=== PATIENT | female | born 1970 | race Caucasian/White ===

== ENCOUNTER 2024-08-03 14:38 | Emergency (ER) | payer BC, MEDICAID, SELFPAY ==
[2024-08-03 14:39] VITALS: BP 198/106; PULSE 67; RESP 17; TEMP 36.7; O2SAT 98; BMI 72.1
--- NOTE | 2024-08-03 14:46 | CTR_ITS ---
PROCEDURE INFORMATION: Exam: CT Abdomen And Pelvis With Contrast Exam date and time: 08/03/2024 3:36 PM Age: 53 years old Clinical indication: Abdominal pain; Additional info: Severe abdominal pain; Known hernia TECHNIQUE: Imaging protocol: Computed tomography of the abdomen and pelvis with contrast. Radiation optimization: All CT scans at this facility use at least one of these dose optimization techniques: automated exposure control; mA and/or kV adjustment per patient size (includes targeted exams where dose is matched to clinical indication); or iterative reconstruction. Contrast material: OMNI 350; Contrast volume: 100 ml; Contrast route: INTRAVENOUS (IV); COMPARISON: CR XR chest 1V portable [id number] 08/03/2024 3:26 PM RADIATION DOSE METRICS: Total DLP (mGy-cm): 1269.8 FINDINGS: Lungs: Lung bases are clear. No pleural effusion. Liver: Normal. No mass. Gallbladder and biliary ducts: The gallbladder has been resected. Pancreas: Normal. No ductal dilation. Spleen: Normal. No splenomegaly. Adrenal glands: Normal. No mass. Kidneys and ureters: Normal. No hydronephrosis. Stomach and bowel: See Soft tissues finding. Appendix: No evidence of appendicitis. Intraperitoneal space: Unremarkable. No free air. No significant fluid collection. Vasculature: Unremarkable. No abdominal aortic aneurysm. Lymph nodes: Unremarkable. No enlarged lymph nodes. Urinary bladder: Unremarkable as visualized. Reproductive: Unremarkable as visualized. Bones/joints: Unremarkable. No acute fracture. Soft tissues: There is a large hernia involving the left anterior abdominal wall. The hernia sac contains mesenteric fat and small bowel. There is mild small bowel dilatation adjacent to the hernia sac. No other bowel distension noted. CT/CT abdomen pelvis w con* [id number] IMPRESSION: Large anterior abdominal wall hernia containing small bowel. I believe this causes a mild partial small bowel obstruction
--- NOTE | 2024-08-03 14:46 | XRR_ITS ---
PROCEDURE INFORMATION: Exam: XR Chest Exam date and time: 08/03/2024 3:26 PM Age: 53 years old Clinical indication: Pain; Other: Abdominal TECHNIQUE: Imaging protocol: Radiologic exam of the chest. Views: 1 view. COMPARISON: No relevant prior studies available. FINDINGS: Lungs: Unremarkable. No consolidation or mass. Pleural spaces: Unremarkable. No pleural effusion. No pneumothorax. Heart/Mediastinum: Mild cardiomegaly is noted. Bones/joints: Unremarkable. XR/XR chest 1V portable [id number] IMPRESSION: No acute findings.
--- NOTE | 2024-08-03 14:53 | ED_ITS ---
HPI - Abdominal Pain 2 General: Chief Complaint: Abdominal Pain Stated Complaint: abd pain Time Seen by Provider: 08/03/24 14:41 Source: patient and EMS Mode of arrival: EMS Limitations: no limitations History of Present Illness: Patient 53-year-old female presents to ED today via EMS for complaints of severe abdominal pain. She was reportedly seated on a toilet earlier this morning straining when she immediately felt a pop and had abdominal pain that seemed to spread all over. Patient states she has a known abdominal hernia and states most of her pain is around this area. She arrives to the ED visibly uncomfortable with severe abdominal pain. Patient is super morbidly obese with a BMI of 72. She has not had any vomiting or diarrhea. No fevers. Arrives with stable vitals apart from she is hypertensive-states she never checks her blood pressure at home. MD elicited complaint: abdominal pain Onset (ago): hour(s) Pain Consistency: constant Severity: severe Quality: sharp Migration to: no migration Relieving factors: nothing Associated Symptoms: Denies chills, diarrhea, dysuria, fever(s), heartburn, nausea, syncope and vomiting Related Data Home Medications Medication Instructions Recorded Confirmed dulaglutide 0.75 mg/0.5 mL 0.75 mg SUBCUT Q7D 08/03/24 08/03/24 subcutaneous pen injector (Trulicity) hydrochlorothiazide 50 mg tablet 50 mg PO DAILY 08/03/24 08/03/24 levothyroxine 100 mcg tablet 100 mcg PO DAILY 08/03/24 08/03/24 metformin 500 mg tablet,extended 500 mg PO BID 08/03/24 08/03/24 release 24 hr sertraline 50 mg tablet 50 mg PO DAILY 08/03/24 08/03/24 Previous Rx's Medication Instructions Recorded lisinopril 20 mg tablet 20 mg PO DAILY #30 tabs 08/03/24 pantoprazole 40 mg tablet,delayed 40 mg PO DAILY 4 weeks #28 tabs 08/03/24 release (Protonix) Allergies Allergy/AdvReac Type Severity Reaction Status Date / Time No Known Allergies Allergy Verified 08/03/24 14:52 Review of Systems 2 Const: Denies: fever(s), chills, body aches, fatigue or malaise Eyes: Denies: change in vision or blurry vision Card: Denies: chest pain, palpitations, irregular heart rhythm, lightheadedness, syncope or dyspnea on exertion Resp: Denies: dyspnea, productive cough or pain on inspiration GI: Reports: abdominal pain; Denies: nausea, vomiting, heartburn or diarrhea : Denies: flank pain, difficulty voiding, dysuria, urinary frequency, urinary urgency or urinary hesitancy Musc: Denies: neck pain, back pain, extremity pain, extremity swelling or joint pain Skin/Breast: Denies: rash Neuro: Denies: headache(s), numbness in extremities, weakness in extremities, sensory changes or dizziness Physical Exam 2 Const: COMMON NORMALS: patient oriented x3 and alert GENERAL APPEARANCE: c ooperative and in distress (appears uncomfortable secondary to pain) N UTRITIONAL APPEARANCE: obese morbidly obese (super morbidly obese with BMI of 72.1) ORIENTATION/CONSCIOUSNESS: Yes awake, Yes oriented to person, Yes oriented to place and Yes oriented to time Eye: COMMON NORMALS: no scleral icterus Chest: COMMONS NORMALS: normal inspection of the chest and normal palpation of entire chest wall Resp: COMMON NORMALS: normal respiratory effort and clear to auscultation bilaterally AUSCULTATION: clear to auscultation bilaterally Cardio: COMMON NORMALS: regular rate and regular rhythm RATE: regular rate RHYTHM: regular rhythm GI: AUSCULTATION: Yes normoactive bowel sounds PALPATION: Yes Tenderness to palpation present (GI) (over site of known hernia) OTHER: organomegaly cannot be evaluated as there are significant limitations in her exam given her morbid obesity : COMMON NORMALS: Yes no CVA tenderness BLADDER/KIDNEY EXAM: Yes no CVA tenderness Back/Pelvis: COMMON NORMALS: no CVA tenderness and thoracic and lumbar spine normal to inspection Extremity: COMMON NORMALS: capillary refill normal GENERAL: Yes normal exam except as noted Neuro: COMMON NORMALS: patient oriented x3, moves all extremities, no focal motor deficits and no sensory deficits noted SENSORIUM/ORIENTATION: Yes alert, Yes oriented to person, Yes oriented to place and Yes oriented to time Skin: COMMON NORMALS: no rashes or lesions noted GENERAL SKIN EXAM: no rashes or lesions noted Course 2 Consultations: Consultation #1: Dr. Harrison-will consult on patient in ED; he is recommending protonix as patient told him she has been having epigastric pain and smokes/NSAID use-possible concern for gastritis; he wants to follow up in office for EGD; feels hernia is chronic and states she does not have an obstruction so can be discharged Vital Signs: Vital signs: Vital Signs Temperature 98.0 F 08/03/24 14:39 Pulse Rate 95 08/03/24 15:48 Respiratory Rate 26 H 08/03/24 15:48 Blood Pressure 186/90 08/03/24 15:48 Pulse Oximetry 94 08/03/24 15:48 Oxygen Delivery Me thod Room Air 08/03/24 15:48 MDM - Abdominal Pain Medical Decision Making Patient here for acute onset abdominal pain while straining to have a bowel movement. She does have a known large abdominal hernia and most of her pain was around the site. She arrives hypertensive. Patient states she never checks her blood pressure at home. She is super morbidly obese. Blood work overall is nonactionable. UA is contaminated. CT scan showing a large anterior abdominal wall hernia containing small bowel. Radiologist commented on mild partial small bowel obstruction. General surgeon has consulted on patient here in the emergency department and does not feel she has SBO. He feels hernia is chronic. He does want her placed on Protonix and follow-up in office for possible EGD. Patient feels comfortable with this plan. Return ED precautions given. Medical Records I reviewed the patient's medical records. Lab Data I reviewed the patient's lab results. 08/03/24 15:12 08/03/24 15:12 Labs/Radiology: Radiology Impressions Abdomen/Pelvis CT 08/03/24 14:46 IMPRESSION: Large anterior abdominal wall hernia containing small bowel. I believe this causes a mild partial small bowel obstruction Chest X-Ray 08/03/24 14:46 IMPRESSION: No acute findings. Laboratory Results WBC 13.34 10^3/uL (3.29-11.43) H 08/03/24 15:12 RBC 5.32 10^6/uL (3.85-5.65) 08/03/24 15:12 Hgb 14.00 g/dL (11.27-16.99) 08/03/24 15:12 Hct 44.9 % (36-47) 08/03/24 15:12 MCV 84.4 fl (85-98) L 08/03/24 15:12 MCH 26.3 pg (27-33) L 08/03/24 15:12 MCHC 31.2 g/dL (30-55) 08/03/24 15:12 RDW 15.9 % (12.1-15.1) H 08/03/24 15:12 Plt Count 324 10^3/cmm (157-399) 08/03/24 15:12 MPV 9.3 fL (7.4-10.4) 08/03/24 15:12 Neut % (Auto) 76.0 % 08/03/24 15:12 Lymph % (Auto) 14.9 % 08/03/24 15:12 Alexander % (Auto) 5.9 % 08/03/24 15:12 Eos % (Auto) 1.5 % 08/03/24 15:12 Baso % (Auto) 0.4 % 08/03/24 15:12 Neut # (Auto) 10.14 10^3/uL (1.8-7.7) H 08/03/24 15:12 Lymph # (Auto) 2.0 10^3/uL (0.8-4.8) 08/03/24 15:12 Alexander # (Auto) 0.8 10^3/uL (0.2-0.9) 08/03/24 15:12 Eos # (Auto) 0.2 10^3/uL (0.0-0.8) 08/03/24 15:12 Baso # (Auto) 0.1 10^3/uL (0.0-0.1) 08/03/24 15:12 Nucleated RBC % (auto) 0 % 08/03/24 15:12 Nucleated RBCs # 0.0 /100WBC 08/03/24 15:12 Sodium 137 mmol/L (136-145) 08/03/24 15:12 Potassium 4.1 mmol/L (3.5-5.1) 08/03/24 15:12 Chloride 95 mmol/L (98-107) L 08/03/24 15:12 Carbon Dioxide 29 mmol/L (22-29) 08/03/24 15:12 Anion Gap 17.1 (5-19) 08/03/24 15:12 BUN 11 mg/dL (6-20) 08/03/24 15:12 Creatinine 0.6 mg/dL (0.5-0.9) 08/03/24 15:12 GFR Calculation 105.0 mL/min (90-130) 08/03/24 15:12 Glucose 135 mg/dL (65-115) H 08/03/24 15:12 Calculated Osmolality 285 mOsm/kg (285-295) 08/03/24 15:12 Calcium 9.5 mg/dL (8.5-10.5) 08/03/24 15:12 Total Bilirubin 0.4 mg/dL (0.15-1.2) 08/03/24 15:12 AST 15 U/L (0-32) 08/03/24 15:12 ALT 19 U/L (0-33) 08/03/24 15:12 Alkaline Phosphatase 106 U/L (35-105) H 08/03/24 15:12 Total Protein 7.1 g/dL (6.6-8.7) 08/03/24 15:12 Albumin 3.9 g/dL (3.5-5.2) 08/03/24 15:12 Globulin 3.2 g/dL (1.3-4.6) 08/03/24 15:12 Lipase 22 U/L (13-60) 08/03/24 15:12 Urine Color Dark yellow (Yellow) A 08/03/24 15:00 Urine Appearance Cloudy (CLEAR) A 08/03/24 15:00 Urine pH 6.0 (5-7) 08/03/24 15:00 Ur Specific Hughes 1.024 (1.005-1.030) 08/03/24 15:00 Urine Protein 2+ (Negative) A 08/03/24 15:00 Urine Glucose (UA) Negative (Normal) 08/03/24 15:00 Urine Ketones Negative (Negative) 08/03/24 15:00 Urine Blood Negative (Negative) 08/03/24 15:00 Urine Nitrate Positive (Negative) A 08/03/24 15:00 Urine Bilirubin Negative (Negative) 08/03/24 15:00 Urine Urobilinogen 1.0 mg/dL (Negative) 08/03/24 15:00 Ur Leukocyte Esterase Negative (Negative) 08/03/24 15:00 Urine RBC 6-10 /hpf (0-2) 08/03/24 15:00 Urine WBC 11-20 /hpf (0-5) H 08/03/24 15:00 Ur Squamous Epith Cells 11-20 /hpf (0-5) 08/03/24 15:00 Amorphous Sediment Not Reportable 08/03/24 15:00 Urine Bacteria 4+ /hpf (NONE) H 08/03/24 15:00 Hyaline Casts 4.11 /lpf 08/03/24 15:00 All radiology interpretation(s) finalized by discharge Discharge Plan Discharge Patient Disposition: Home Clinical Impression: Abdominal wall hernia Hypertension Qualifiers: Hypertension type: unspecified Qualified Code(s): I10 - Essential (primary) hypertension Condition: Stable Prescriptions: New pantoprazole [Protonix] 40 mg tablet,delayed release (DR/EC) 40 mg PO DAILY 28 Days Qty: 28 0RF lisinopril 20 mg tablet 20 mg PO DAILY Qty: 30 0RF No Action hydrochlorothiazide 50 mg tablet 50 mg PO DAILY levothyroxine 100 mcg tablet 100 mcg PO DAILY metformin 500 mg tablet extended release 24 hr 500 mg PO BID sertraline 50 mg tablet 50 mg PO DAILY Trulicity 0.75 mg/0.5 mL Pen Injector 0.75 mg SUBCUT Q7D Discharge Orders: Discharge ED (Routine); Ordered 08/03/24 Ordered By: Meka Acevedo Referrals: Darshan Friedman FNP [Family Provider] - Heather Yip FNP [Primary Care Provider] - Activity Restrictions/Additional Instructions: As we discussed, Dr. Pemberton with general surgery is consulted on you here in the emergency department. He would like to follow-up with you in office for further evaluation and possible endoscopy. We will place you on Protonix at his recommendation. I am also placing you on lisinopril due to your elevated blood pressures here. Please keep a blood pressure log and follow-up with primary care in 2 weeks so they can adjust medication based on this log. You need to return to the emergency department for worsening abdominal pain, fevers, repetitive episodes of vomiting, inability to have a bowel movement or pass gas, or any other concerns you may have. Coding Level of Care Code ED Chiller Tender for Osei Geiger
[2024-08-03 15:08] VITALS: RESP 18; O2SAT 94
[2024-08-03] MEDS: ondansetron 2 mg/ML SDV 2 mL 4 MG IVP (15:08)
[2024-08-03] MEDS: morphine 4 mg/mL SDV 1 mL IVP ×2 (15:08→17:16)
[2024-08-03 15:11] VITALS: BP 212/106; PULSE 71; RESP 22; O2SAT 96
--- NOTE | 2024-08-03 15:19 | PC.PHAR ---
Zev states she is taking medications listed . She was prescribed Trulicity but she states she never picked it up . She states she is borderline Diabetic but didn't want to start taking medications if she didn't quit need it . All other medication listed was verified with Pharmacy that last fill dates were 05/05/24 all for 30days and she hasn't refilled .
[2024-08-03 15:21] LABS: Basophils # 0.1 10^3/uL (0.0-0.1); Basophils % 0.4 %; Eosinophils # 0.2 10^3/uL (0.0-0.8); Eosinophils % 1.5 %; Hematocrit 44.9 % (36-47); Lymphocytes % 14.9 %; Mean Corpuscular HGB Conc 31.2 g/dL (30-55); Mean Corpuscular Hemoglobin 26.3 pg (27-33); Mean Corpuscular Volume 84.4 fl (85-98); Mean Platelet Volume 9.3 fL (7.4-10.4); Monocytes # 0.8 10^3/uL (0.2-0.9); Monocytes % 5.9 %; Neutrophils # 10.14 10^3/uL (1.8-7.7); Nucleated Red Blood Cells % 0 %; Platelet Count 324 10^3/cmm (157-399); Red Blood Count 5.32 10^6/uL (3.85-5.65); Red Cell Distribution Width 15.9 % (12.1-15.1); White Blood Count 13.34 10^3/uL (3.29-11.43)
[2024-08-03 15:23] LABS: Bilirubin Urine Negative (Negative); Blood Urine Negative (Negative); Glucose Urine UA Negative (Normal); Ketones Urine Negative (Negative); Leukocyte Esterase Urine Negative (Negative); Nitrate Urine Positive (Negative); Protein Urine 2+ (Negative); Specific Gravity, Urine 1.024 (1.005-1.030); Urine Appearance Cloudy (CLEAR); Urine Color Dark Yellow (Yellow)
[2024-08-03 15:25] LABS: Add Urine Microscopic? YES; Bacteria Urine 4+ /hpf; Hyaline Casts Urine 4.11 /lpf
[2024-08-03] MEDS: hyDRALAzine 20 mg/mL INJ 1 mL IVP (15:32)
[2024-08-03] MEDS: iohexol 350 mg/mL 500 mL Btl (per mL) IV (15:37)
[2024-08-03 15:40] LABS: Alanine Aminotransferase 19 U/L (0-33); Albumin Level 3.9 g/dL (3.5-5.2); Alkaline Phosphatase 106 U/L (35-105); Anion Gap 17.1 (5-19); Aspartate Amino Transferase 15 U/L (0-32); Blood Urea Nitrogen 11 mg/dL (6-20); Calcium 9.5 mg/dL (8.5-10.5); Carbon Dioxide 29 mmol/L (22-29); Chloride 95 mmol/L (98-107); Creatinine Clr Calc Pharmacy 188.7723; Globulin 3.2 g/dL (1.3-4.6); Glucose 135 mg/dL (65-115); Lipase 22 U/L (13-60); Osmolality Calculated 285 mOsm/kg (285-295); Potassium 4.1 mmol/L (3.5-5.1); Sodium 137 mmol/L (136-145); Total Bilirubin 0.4 mg/dL (0.15-1.2); Total Protein 7.1 g/dL (6.6-8.7)
[2024-08-03 15:48] VITALS: BP 186/90; PULSE 95; RESP 26; O2SAT 94
[2024-08-03] MEDS: metoprolol tartrate 1 mg/1 mL SDV 5 mL 5 MG IVP (16:44)
--- NOTE | 2024-08-03 17:01 | P.CONIM_ITS ---
Providers/Reason For Consult 2 Consulting Physician/Specialty*: Dr. Pemberton general surgery Reason for Consult*: Hernia Primary Care Provider: ANA MARIA Spear History of Present Illness History of Present Illness Arely Landeros is a 53 year old female who presents with epigastric pain. Patient is concerned that the pain is being caused by the hernia. Patient reports smoking. She has been taking ibuprofen quite frequently this week. Patient had a bowel movement today has been passing gas. No vomiting. Abdomen is soft with some tenderness at the hernia site which is periumbilical. Pain is mostly epigastric. CT scan reported as small bowel possibly causing a small bowel obstruction however on my review of the images the small bowel is completely decompressed as well as the stomach. It appears to be a loop of small bowel is chronically incarcerated. There is no fluid in the hernia sac. Her abdominal exam is quite benign. Medications/Allergies Home Medications Medication Instructions Recorded Confirmed Last Taken Type dulaglutide 0.75 mg/0.5 mL 0.75 mg SUBCUT Q7D 08/03/24 08/03/24 Unknown History subcutaneous pen injector (Trulicity) hydrochlorothiazide 50 mg tablet 50 mg PO DAILY 08/03/24 08/03/24 Unknown History levothyroxine 100 mcg tablet 100 mcg PO DAILY 08/03/24 08/03/24 Unknown History lisinopril 20 mg tablet 20 mg PO DAILY #30 tabs 08/03/24 Unknown Rx metformin 500 mg tablet,extended 500 mg PO BID 08/03/24 08/03/24 Unknown History release 24 hr pantoprazole 40 mg tablet,delayed 40 mg PO DAILY 4 weeks #28 tabs 08/03/24 Unknown Rx release (Protonix) sertraline 50 mg tablet 50 mg PO DAILY 08/03/24 08/03/24 Unknown History Allergies Allergy/AdvReac Type Severity Reaction Status Date / Time No Known Allergies Allergy Verified 08/03/24 14:52 Vitals/I&O/Wt Last Vital Signs Temp 98.0 F 08/03/24 14:39 Pulse 95 08/03/24 15:48 Resp 26 H 08/03/24 15:48 BP 186/90 08/03/24 15:48 Pulse Ox 94 08/03/24 15:48 O2 Del Method Room Air 08/03/24 15:48 Weight last 48 hrs Weight 420 lb Physical Exam 2 Narrative: Chest: Unlabored breathing room air. No lymphadenopathy. Heart: Regular rate and rhythm. Abdomen: Soft, mildly tender at the epigastrium, nondistended. No masses or lymphadenopathy. Data 08/03/24 15:12 08/03/24 15:12 A&P Assessment and plan (1) Abdominal wall hernia: (2) PUD (peptic ulcer disease): Plan 53-year-old female who presents with epigastric pain and pain around the periumbilical hernia. Her pain is most consistent with peptic ulcer disease. Instructed to stop ibuprofen, reduce smoking, and start Protonix. Hernia causes her some discomfort but I do not believe this is causing her to be obstructed. Furthermore I cautioned her that fixing her hernia has a high recurrence risk given her BMI and overall deconditioning. She can follow-up with me for EGD. Coding Level of Care Code 27135 Diagnoses Abdominal wall hernia K43.9 PUD (peptic ulcer disease) K27.9 Time Spent (min) 30
[2024-08-03 17:16] VITALS: RESP 20; O2SAT 96
[2024-08-03 17:22] VITALS: BP 182/97; PULSE 83; O2SAT 96
--- NOTE | 2024-08-06 07:09 | DCPLANNER ---
messaged gen surgery for er f/u
== END 2024-08-03 17:23 | disposition home or self-care (01) ==
PROVIDERS: Emergency Provider Physician Assistant; Family Provider Nurse Practitioner Family; PCP Registered Nurse
DX: K43.9 Ventral hernia without obstruction or gangrene (principal)
CPT/HCPCS: 71045; 74177; 80053; 81001; 83690; 85025; 96374; 96375; 96376; 99285; J0360; J2270; J2405; J3490

== ENCOUNTER 2025-01-12 10:07 | Outpatient (CLI) | payer BC, MEDICAID, SELFPAY ==
--- NOTE | 2025-01-12 10:09 | USCV_ITS ---
Arely Landeros Age: 54 Gender: F : 1970 Exam Date: 01/12/2025 10:03 Ordering Phys: Sharona Pierson-Yanira Technologist: Carlyle Brandt [place] [facility] [place]: Lymphedma RIGHT LEFT Brachial 215.00 mmHg Brachial 196.00 mmHg Pressure (mmHg) Waveform Pressure (mmHg) Waveform 158.00 Pre-Exercise Toe Pressure 177.00 0.73 Pre-Exercise Toe/Brachial Index 0.82 FINDINGS KATRINA noncalculable due to noncompressibility TBI on the right side of 0.73 and that on the left was 0.82 CONCLUSIONS 1. Super normal ABIs bilaterally suggesting arterial sclerosis 2. Slightly diminished resting KATRINA on the right side suggesting mild peripheral artery disease 3. No significant arterial obstruction on the left side. Dr Marilynn Harvey MD [facility] (Electronically Signed) Final Date: 16 January 2025 19:21 S
== END 2025-01-12 10:08 | disposition home or self-care (01) ==
PROVIDERS: Family Provider Nurse Practitioner Family; PCP Registered Nurse; Visit Provider Nurse Practitioner Family
DX: I89.0 Lymphedema, not elsewhere classified (principal)
CPT/HCPCS: 93922

== ENCOUNTER 2025-05-08 08:38 | Inpatient (IN) | payer BC, SELFPAY ==
[2025-05-08] VITALS (49 sets, daily range): BP systolic 127–228; BP diastolic 61–155; PULSE 60–89; RESP 14–24; TEMP 36.4–36.7; O2SAT 91–100; BMI 67.6; BMI 69.6
--- OUTSIDE RECORDS SUMMARY | 2025-05-08 08:42 | XMS_ITS | Encounter Summary ---
Author Organization [facility] Address [address] [place] [address] Care Team Providers Care Cage Supervisor Name Role Phone OsirisMckay desai Primary Care Provider [phone] Encounter Details Date Type Department Care Team (Late st Contact Info) Description 03/11/2025 Results Follow-Up [facility] Medicine [place] [address] [phone] Heather Yip, [facility] [address] [phone] TSH Social History Tobacco Use Types Packs/Day Years Used Date Smoking Tobacco: Every Day Cigarettes 1 31.1 Started: 04/09/1994 Smokeless Tobacco: Never Alcohol Use Standard Drinks/Week Comments No 0 (1 standard drink = 0.6 oz pur e alcohol) Feeling Safe Answer Date Recorded Are you in a relationship wi th someone who hurts you emotionally and/or physically? 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 Author Reduction of depression doom and gloom General Yes Mary Jane Tim Note: Arely will explore the feelings wheel and increase her awareness on feelings. Arely will get up for 5 mins upon waking and return to bed. If needed the patient will use guided sleep meditations to return to sleep. Arely will review information about sleep hygiene. Arely will call [facility] to seek in person therapy for trauma. documented as of this encounter Visit Diagnoses Not on filedocumented in this encounter Additional Health Concerns Assessment Noted Time PHQ-9 Depression Total Score: 3 12/08/19 25 10:00 AM CDT documented as of this encounter Care Teams Cage Supervisor Relationship Specialty Start Date End Date Mckay Crawford DO [address] [place] [phone] PCP - General Family Practice 12/17/22 documented as of this encounter
--- OUTSIDE RECORDS SUMMARY | 2025-05-08 08:42 | XMS_ITS | Clinical Summary ---
Author Organization [facility] Address [address] [place] [address] Phone Care Team Providers Care Personal Care Worker Name Role Phone Tracy Perez Primary Care Provider Allergies No known active allergies Medications cetirizine (ZyrTEC) 10 mg tablet Take 10 mg by mouth daily. Active norethindrone-et hin estradiol (NECON , 28,) 1-35 mg-mcg tabletIndication s:Menorrhagia with irregular cycle Take 1 tab TID for 3 days, then 1 tab BID for 3 days then 1 tab daily 28 Tablet 12 9 Active levothyroxine 75 mcg tabletIndication s:Hypothyroidism , unspecified type Take 1 Tablet (75 mcg) by mouth daily in the morning. 90 Tablet 1 Active hydroCHLOROthiaz sandra 25 mg tabletIndication s:Benign hypertension,Gen eralized edema TAKE ONE TO ONE AND ONE-HALF TABLET BY MOUTH ONCE DAILY FOR LOWER LEG SWELLING AND ELEVATED BLOOD PRESSURE 45 Tablet 3 1 Active PARoxetine HCl (PAXIL) 40 mg tabletIndication s:Situational mixed anxiety and depressive disorder Take 1 Tablet (40 mg) by mouth daily. 30 Tablet 11 1 Active triamcinolone acetonide (KENALOG) 0.5 % CreamIndications :Plaque psoriasis Apply to affected area 2 times daily. 30 Gram 2 1 Active Active Problems Problem Noted Date Diagnosed Date Situational mixed anxiety and depressive disorde r 06/09/2019 Menorrhagia with irregular cycle 06/09/2019 Situational depression 11/28/2017 Hypothyroidism 01/08/2017 Benign hypertension 01/08/2017 Morbid obesity with BMI of 50.0-59.9, adult 12/27 Tobacco use 08/14/2016 Immunizations Immunization Administration Dates Next Due (ADACEL/BOOSTRIX)(10 YR UP) TDAP VACCINE, 0.5ML, IM 08/14/2016 Social History Tobacco Use Types Packs/Day Years Used Date Smoking Tobacco: Every Day Cigarettes Tobacco Cessation:Ready to Q uit: No; Counseling Given: Yes Alcohol Use Standard Drinks/Week Comments No 0 (1 standard drink = 0.6 oz pur e alcohol) Comments No Sex and Gender Information Value Date Recorded Sex Assigned at Not on file Legal Sex Female 6:13 PM CDT Gender Identity Not on file Sexual Orientation Not on file Last Filed Vital Signs Vital Sign Reading Time Taken Comments Blood Pressure 130/90 01/02/2021 4:06 PM CDT Pulse 110 01/02/2021 4:06 PM CDT Temperature 36.6 C (97.9 F) 01/02/2021 4:06 PM CDT Respiratory Rate 18 06/09/2019 9:54 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 Oxygen Saturation 97% 01/02/2021 4:06 PM CDT Inhaled Oxygen Concentration - - Weight 167.7 kg (369 lb 12.8 oz) 01/02/2021 4:06 PM CDT Height 162.6 cm (5' 4 ) 01/02/2021 4:06 PM CDT Body Mass Index 63.48 01/02/2021 4:06 PM CDT Plan of Treatment Health Maintenance Due Date Last Done Comments DIABETES ANNUAL FOOT EXAM 1989 DIABETES ANNUAL RETINAL EXAM 1989 DIABETES HBA1C Q 6 MONTHS 1989 DIABETES MICROALBUMIN ANNUAL SCREEN 1989 LDL CHOLESTEROL ANNUAL 1989 HEPATITIS B VACCINES (1 of 3 - 19+ 3-dose series) 07/29 HPV/Cotest (21-29) 1992 CERVICAL CANCER SCREENING 2001 HPV/Cotest (30-65) 2001 PAP SMEAR 2001 BREAST CANCER SCREENING 2011 COLORECTAL SCREENING 2016 Colorectal Cancer Screening 2016 FIT-DNA Q 3 years 2016 FIT/FOBT Q 1 year 2016 Flex Sig/CT Colonography Q 5 years 2016 ZOSTER VACCINE (1 of 2) 2021 INFLUENZA VACCINE (#1) 2025 DTAP/TDAP/TD VACCINES (2 - Td or Tdap) 08/14/2026 Care Teams Personal Care Worker Relationship Specialty Start Date End Date Tracy Perez DO [address] [place] [address] PCP - General Family Practice 02/22/17
--- OUTSIDE RECORDS SUMMARY | 2025-05-08 08:42 | XMS_ITS | Encounter Summary ---
Author Organization [facility] Address 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 Arely will call [facility] to seek in person therapy for trauma. documented as of this encounter Visit Diagnoses Not on filedocumented in this encounter Additional Health Concerns Assessment Noted Time PHQ-9 Depression Total Score: 3 12/08/19 25 10:00 AM CDT documented as of this encounter Care Teams Incident Coordinator Relationship Specialty Start Date End Date Mckay Crawford DO [address] [place] [phone] PCP - General Family Practice 12/17/22 documented as of this encounter
--- OUTSIDE RECORDS SUMMARY | 2025-05-08 08:42 | XMS_ITS | Clinical Summary ---
Author Organization [facility] Address [address] [facility] Attn: Epic Prelude ADT ZACHARY CAPPS [phone] Care Team Providers Care Barback Name Role Phone Mckay Crawford Primary Care Provider Allergies Active Allergy Reactions Criticality Noted Date Comments Adhesive Rash Low 12/07/2024 Medications cetirizine (ZyrTEC) 10 mg tablet Take 10 mg by mouth daily. 8 Active nystatin (NYSTOP) 100,000 unit/gram powderIndicatio ns:Skin yeast infection Apply to affected area 2 times daily. 60 Gram 5 2 Active hydrocortisone (HYTONE) 2.5 % Ointment Apply to affected area 2 times daily. 3 Active clobetasoL (TEMOVATE) 0.05 % Ointment Apply to affected area. 3 Active clobetasoL (TEMOVATE) 0.05 % Solution Apply to affected area daily. 3 Active potassium chloride (KLOR-CON) 10 mEq Extended Release tabletIndicatio ns:Dyspnea, unspecified type,Bilateral leg edema Take 1 tab daily when taking Lasix. 30 Tablet 1 3 Active Additional Information Patient not taking.Reported on 03/09/2025 furosemide (LASIX) 20 mg tabletIndicatio ns:Dyspnea, unspecified type,Bilateral leg edema TAKE 1 TABLET BY MOUTH NEEDED FOR LOWER LEG EDEMA 30 Tablet 1 4 Active Additional Information Patient not taking.Reported on 03/09/2025 hydroCHLOROthia zide 50 mg tabletIndicatio ns:Benign hypertension,Ge neralized edema TAKE ONE TAB DAILY 90 Tablet 1 5 Active sertraline (Zoloft) 100 mg tabletIndicatio ns:Moderate episode of recurrent major depressive disorder (CMS/HCC),Grief at loss of child Take 1 Tablet (100 mg) by mouth daily. 90 Tablet 3 5 Active levothyroxine 125 mcg tabletIndicatio ns:Hypothyroidi sm, unspecified type Take 1 Tablet (125 mcg) by mouth daily in the morning. 30 Tablet 3 5 Active tirzepatide, weight loss, (Zepbound) 7.5 mg/0.5 mL Pen Injector Inject 0.5 mL (7.5 mg) by subcutaneous injection every 7 days. 2 mL 2 5 Active mebendazole (EMVERM) 100 mg Tablet, ChewableIndicat ions:Worms in stool Take 1 Tablet (100 mg) by mouth 2 times daily for 3 days. 6 Tablet 1 5 025 Active Problems Problem Noted Date Diagnosed Date Acute cystitis with hematuria 06/04/2024 Lymphedema of both lower extremities 06/04/2024 Type 2 diabetes mellitus wit hout complication, without long-term current use of insulin 04/11/2024 Morbid obesity with BMI of 70 and over, adult Chronic pain of right knee 04/09/2024 Primary osteoarthritis of both knees 11/18/2023 Generalized anxiety disorder 06/09/2019 Menorrhagia with irregular cycle 06/09/2019 Moderate episode of recurrent major depressive d isorder 11/28/2017 Benign hypertension 01/08/2017 Hypothyroidism 01/08/2017 Morbid obesity with BMI of 50.0-59.9, adult 12/27 Tobacco use 08/14/2016 Encounters Date Type Department Care Team Description 04/10/2025 Orders Only [address] [phone] Heather Yip, ANA MARIA Worms in stool (Primary Dx) 04/06/2025 External Device Data ST[facility] ABSTRACTION Provider, Abstract 04/06/2025 External Device Data ST[facility] ABSTRACTION Provider, Abstract 04/06/2025 External Device Data ST[facility] ABSTRACTION Provider, Abstract 03/30/2025 External Device Data ST[facility] ABSTRACTION Provider, Abstract 03/11/2025 Results Follow-Up [address] [phone] Heather Yip FNP HEMOGLOBIN A1C 03/11/2025 Orders Only [address] [phone] Heather Yip, TECHNICAL DATA ANALYST Hypothyroidism, unspecified type 03/11/2025 Results Follow-Up [address] [phone] Heather Yip FNP TSH 03/10/[address] [phone] Heather Yip FNP Hypothyroidism, unspecified type 03/09/2025 11:00 AM CDT Office Visit [address] [phone] Heather Yip, ANA MARIA Type 2 diabetes mellitus without complication, without long-term current use of insulin ([facility]) (Primary Dx); Morbid obesity with BMI of 70 and over, adult ([facility]); Hypothyroidism, unspecified type 03/03/2025 External Device Data STL ABSTRACTION Provider, Abstract 03/02/2025 External Device Data STL ABSTRACTION Provider, Abstract 02/10/2025 External Device Data STL ABSTRACTION Provider, Abstract 02/10/2025 External Device Data STL ABSTRACTION Provider, Abstract from Last 3 Months Immunizations Immunization Administration Dates Next Due (ADACEL/BOOSTRIX)(10 YR UP) TDAP VACCINE, 0.5ML, IM 08/14/2016 Family History Medical History Relation Name Comments SLE Maternal Grandmother Relation Name Status Comments Maternal Grandmother Social History Tobacco Use Types Packs/Day Years Used Date Smoking Tobacco: Every Day Cigarettes 1 31.1 Started: 04/09/1994 Smokeless Tobacco: Never Tobacco Cessation:Ready to Q uit: No; Counseling [...] on file Legal 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 Gender Identity Not on file Sexual Orientation Not on file Last Filed Vital Signs Vital Sign Reading Time Taken Comments Blood Pressure 128/82 03/09/2025 11:20 AM CDT Pulse 94 03/09/2025 11:20 AM CDT Temperature 36.4 C (97.6 F) 03/09/2025 11:20 AM CDT Respiratory Rate 16 03/09/2025 11:20 AM CDT Oxygen Saturation 97% 03/09/2025 11:20 AM CDT Inhaled Oxygen Concentration - - Weight 178.7 kg (394 lb) 03/09/2025 11:20 AM CDT Height 160 cm (5' 3 ) 03/09/2025 11:20 AM CDT Body Mass Index 69.79 03/09/2025 11:20 AM CDT Plan of Treatment Health Maintenance Due Date Last Done Comments DIABETES ANNUAL FOOT EXAM 1989 DIABETES ANNUAL RETINAL EXAM 1989 DIABETES MICROALBUMIN ANNUAL SCREEN 1989 HEPATITIS B VACCINES (1 of 3 - 19+ 3-dose series) 1990 HPV/Cotest (21-29) 1992 CERVICAL CANCER SCREENING 2001 HPV/Cotest (30-65) 2001 PAP SMEAR 2001 COLORECTAL SCREENING 2016 Colorectal Cancer Screening 2016 FIT-DNA Q 3 years 2016 FIT/FOBT Q 1 year 2016 Flex Sig/CT Colonography Q 5 years 2016 Lung Cancer Screening 2021 ZOSTER VACCINE (1 of 2) 2021 Preventative Visit-Managed Medicaid 12/19/2023 12/17/2022, 02/22/2022 INFLUENZA VACCINE (#1) 2025 BREAST CANCER SCREENING 06/07/2025 Post poned from 2011 (Patient Refused) DIABETES HBA1C Q 6 MONTHS 09/09/20252024, 12/07/2024, 04/09/2024, Additional history exists LDL CHOLESTEROL ANNUAL 12/07/2025 , 12/17/2022, 02/22/2022 DIABETES: A1C (Auto Order) 03/09/202603/09, 12/07/2024, 04/09/2024, Additional history exists DTAP/TDAP/TD VACCINES (2 - Td or Tdap) 08/14/2026 08/14/2016 Goals Goal Patient Goal Type Associated Problems Recent Progress Patient-Stated? Author Reduction of depression doom and gloom General Yes Mary Jane Tim Note: Raymond will explore the feelings wheel and increase her awareness on feelings. Raymond will get up for 5 mins upon waking and return to bed. If needed the patient will use guided sleep meditations to return to sleep. Raymond will review information about sleep hygiene. Raymond will call [facility] to seek in person therapy for trauma. Procedures Procedure Name Priority Date/Time Associated Diagnosis Comments HEMOGLOBIN A1C Routine 03/09/2025 12:28 PM CDT Type 2 diabetes mellitus without complication, without long-term current use of insulin ([facility]) TSH Routine 03/09/2025 12:26 PM CDT Hypothyroidism, unspecified type LIPID PANEL Routine 12/07/2024 11:58 AM CDT Type 2 diabetes mellitus without complication, without long-term current use of insulin ([facility]) from Last 3 Months or Most Recently Relevant to Health Maintenance Results * (ABNORMAL) HEMOGLOBIN A1C (03/09/2025 12:28 PM CDT) HEMOGLOBIN A1C 5.9(H) <5.7 % [facility] Comment: For someone without known diabetes, a hemoglobin A1c value between 5.7% and 6.4% is consistent with prediabetes and should be confirmed with a follow-up test. For someone with known diabetes, a value <7% indicates that their diabetes is well controlled. A1c targets should be individualized based on duration of diabetes, age, comorbid conditions, and other considerations. This assay result is consistent with an increased risk of diabetes. Currently, no consensus exists regarding use of hemoglobin A1c for diagnosis of diabetes for children. ESTIMATED AVERAGE GLUCOSE (MG/DL) 123 mg/dL [facility] ESTIMATED AVERAGE GLUCOSE (MMOL/L) 6.8 mmol/L [facility] Comment: Test Performed at: [facility] [address] [place] [address], [place] [phone] Lisa Torres MD Blood 03/09/2025 12:2 8 PM CDT 03/09/2025 12:29 PM CDT Heather MORFINP CHEMISTRY ORDERABLES Final Re sult Performing Organization Address [facility] Co de Phone Number [facility] [phone] [facility] [address] [place] [phone] * TSH (03/09/2025 12:26 PM CDT) TSH 4.12 mIU/L [facility] Comment: Reference Range > or = 20 Years 0.40-4.50 Ranges First trimester 0.26-2.66 Second trimester 0.55-2.73 Third trimester 0.43-2.91 Test Performed at: [facility] [address] [place] [address], [place] [address] Lisa Torres MD Blood 03/09/2025 12:2 6 PM CDT 03/09/2025 12:27 PM CDT us Heather MORFINP CHEMISTRY ORDERABLES Final Re sult Performing Organization Address [facility] Co de Phone Number [facility] [phone] [employer] [facility] [address] [place] [phone] * (ABNORMAL) LIPID PANEL (12/07/2024 11:58 AM CDT) CHOLESTEROL 214(H) <200 mg/dL [facility] HDL 51 > OR = 50 mg/dL [facility] TRIGLYCERIDE 144 <150 mg/dL [facility] LDL CALCULATED 136(H) mg/dL (calc) [facility] Comment: Reference range: <100 Desirable range <100 mg/dL for primary prevention; <70 mg/dL for patients with CHD or diabetic patients with > or = 2 CHD risk factors. LDL-C is now calculated using the Jessica calculation, which is a validated novel method providing better accuracy than the Friedewald equation in the estimation of LDL-C. Diego SS et al. VANESSA. 2013;310(19): 2856-0506 (http://education.Mobile-XL/faq/RYR036) CHOL/HDL RATIO 4.2 <5.0 (calc) [facility] NON-HDL CHOLESTEROL 163(H) <130 mg/dL (calc) [facility] Comment: For patients with diabetes plus 1 major ASCVD risk factor, treating to a non-HDL-C goal of <100 mg/dL (LDL-C of <70 mg/dL) is considered a therapeutic option. Test Performed at: [facility] [address] [address] Lisa Torres MD Blood 12/07/2024 11:5 8 AM CDT 12/07/2024 11:58 AM CDT us Heather Yip TECHNICAL DATA ANALYST CHEMISTRY ORDERABLES Final Re sult [facility] [phone] [facility] [address] [phone] from Last 3 Months or Most Recently Relevant to Health Maintenance Insurance [address] [place] [address] [facility] MEDICAID Care Teams Barback Relationship Specialty Start Date End Date Mckay Crawford DO [address], [place] [address] PCP - General Family Practice 12/17/22
--- NOTE | 2025-05-08 08:44 | CTR_ITS ---
PROCEDURE INFORMATION: Exam: CT Abdomen And Pelvis Without Contrast Exam date and time: 05/08/2025 9:15 AM Age: 54 years old Clinical indication: Abdominal pain TECHNIQUE: Imaging protocol: Computed tomography of the abdomen and pelvis without contrast. Radiation optimization: All CT scans at this facility use at least one of these dose optimization techniques: automated exposure control; mA and/or kV adjustment per patient size (includes targeted exams where dose is matched to clinical indication); or iterative reconstruction. COMPARISON: CR (CHEST, ) 05/08/2025 8:56 AM RADIATION DOSE METRICS: Total DLP (mGy-cm): 1270.13 FINDINGS: Lungs: Lung bases are clear as visualized. Diaphragm: There may be a small hiatal hernia. Liver: Normal. No mass. Gallbladder and biliary ducts: There are surgical clips within the gallbladder fossa. Pancreas: Normal. No ductal dilation. Spleen: Normal. No splenomegaly. Adrenal glands: Normal. No mass. Kidneys and ureters: Cortical calcification with adjacent scarring noted involving the left kidney. The kidneys are otherwise normal. No hydronephrosis is noted. Stomach and bowel: There are scattered colonic diverticula. No large bowel wall thickening is noted. Very minimal distension of small bowel loops suspected proximal to the hernia defect. Appendix: No evidence of appendicitis. Intraperitoneal space: Unremarkable. No free air. No significant fluid collection. Vasculature: The aorta is normal in caliber. There is calcified plaque involving the aorta and its branch vessels. Lymph nodes: Unremarkable. No enlarged lymph nodes. Urinary bladder: Unremarkable as visualized. Reproductive: Unremarkable as visualized. Bones/joints: Unremarkable. No acute fracture. Soft tissues: There is an anterior abdominal wall hernia defect measuring 4.8 cm in transverse dimension. Small bowel extends through the hernia defect. There is minimal dilatation involving the bowel loops extending through the hernia defect however the bowel wall is slightly thickened and there is edematous change involving the fat within the defect. CT/CT abdomen pelvis wo con [id number] IMPRESSION: 1. Anterior abdominal wall hernia defect with small bowel loops extending through the hernia defect as described above. Findings are suspicious for the possibility of strangulation with partial small bowel obstruction. Recommend clinical correlation.
--- NOTE | 2025-05-08 08:45 | XRR_ITS ---
PROCEDURE INFORMATION: Exam: XR Chest Exam date and time: 05/08/2025 8:56 AM Age: 54 years old Clinical indication: Cough and dyspnea; Additional info: Dyspnea/cough TECHNIQUE: Imaging protocol: Radiologic exam of the chest. Views: 1 view. COMPARISON: CR XR chest 1V portable [id number] 08/03/2024 3:26 PM FINDINGS: Lungs: Unremarkable. No consolidation. Pleural spaces: Unremarkable. No pleural effusion. No pneumothorax. Heart/Mediastinum: Unremarkable. No cardiomegaly. Bones/joints: Unremarkable. XR/XR chest 1V portable [id number] IMPRESSION: No acute findings.
[2025-05-08] MEDS: HYDROmorphone 0.5 MG/0.5 ML INJ IVP ×2 (08:47→10:50)
--- NOTE | 2025-05-08 08:47 | W.ED.ABDPA2 ---
HPI - Abdominal Pain General: Chief Complaint: Abdominal Pain Stated Complaint: ABD PAIN History of Present Illness: 64-year-old female presents emergency room with complaint of abdominal pain abdominal pain began suddenly around the umbilicus this morning she has dry heaves a couple of times complaining of severe pain at the umbilicus. She denies any dysuria urgency or frequency denies any diarrhea no hematemesis or coffee-ground emesis. Patient morbidly obese with a BMI of 67. Patient had similar presentation to the ER in July of this year note reviewed. At that visit there was a concern for small bowel obstruction CT was done, surgical consultation they did not feel she has small bowel obstruction she was discharged home on Protonix Associated Symptoms: Reports nausea and vomiting; Denies chills, coffee ground emesis, diarrhea, dysuria, fever(s), hematochezia, hematemesis and melena Related Data Home Medications ?Medication ?Instructions ?Recorded ?Confirmed levothyroxine 125 mcg tablet 125 mcg PO QAM 05/08/25 05/08/25 sertraline 100 mg tablet 100 mg PO DAILY 05/08/25 05/08/25 tirzepatide (weight loss) 7.5 7.5 mg SUBCUT Q7D 05/08/25 05/08/25 mg/0.5 mL subcutaneous pen injector (Zepbound) Allergies Allergy/AdvReac Type Severity Reaction Status Date / Time No Known Allergies Allergy Verified 08/03/24 14:52 Review of Systems Const: Denies: fever(s) or chills Card: Denies: chest pain Resp: Denies: dyspnea GI: Reports: abdominal pain, nausea and vomiting; Denies: hematemesis, coffee ground emesis, diarrhea, hematochezia or melena : Denies: dysuria, urinary frequency or urinary urgency Musc: Denies: neck pain or back pain Skin/Breast: Denies: rash PFSH ED PFSH: Medical History Morbid obesity Abdominal wall hernia Hypothyroidism Diabetes mellitus PUD (peptic ulcer disease) Social History Smoking and tobacco/nicotine status: current every day tobacco/nicotine user Physical Exam Const: GENERAL APPEARANCE: cooperative ORIENTATION/CONSCIOUSNESS: Yes awake, Yes oriented to person, Yes oriented to place and Yes oriented to time HENMT: COMMON NORMALS: normocephalic, atraumatic and hearing grossly normal bilaterally HEAD & SCALP: normocephalic and atraumatic Resp: COMMON NORMALS: normal respiratory effort, No retractions, No use of accessory muscles and clear to auscultation bilaterally AUSCULTATION: clear to auscultation bilaterally Cardio: COMMON NORMALS: regular rate, regular rhythm and No murmurs present (Cardio) RATE: regular rate RHYTHM: regular rhythm GI: COMMON NORMALS: No hepatosplenomegaly present AUSCULTATION: Yes Hypoactive bowel sounds present PALPATION: Yes Tenderness to palpation present (GI) (Tender palpable mass near the umbilicus.), No Guarding due to palpation present (GI) and Yes No hepatosplenomegaly present Extremity: COMMON NORMALS: normal to inspection, capillary refill normal, no clubbing, cyanosis or edema, no calf tenderness and no pedal edema Neuro: SENSORIUM/ORIENTATION: Yes oriented to person, Yes oriented to place and Yes oriented to time Skin: COMMON NORMALS: no rashes or lesions noted GENERAL SKIN EXAM: no rashes or lesions noted Course Vital Signs: Vital signs: Vital Signs Temperature 97.6 F 05/08/25 11:55 Pulse Rate 83 05/08/25 11:55 Respiratory Rate 16 05/08/25 16:00 Blood Pressure 201/155 05/08/25 11:55 Pulse Oximetry 99 05/08/25 16:00 Oxygen Delivery Me thod Room Air 05/08/25 11:55 Fraction of Inspir ed Oxygen 50 05/08/25 16:00 MDM - Abdominal Pain Medical Decision Making CT shows strangulated hernia with some increased bowel wall thickening within the hernia as well as some fat stranding discussed with the Dr. Pemberton on-call for surgery who will admit. Reviewed findings with the patient. She is agreeable to plan. Orders written for admission to Dr. Pemberton. Medical Records I reviewed the patient's medical records. Lab Data I reviewed the patient's lab results. 05/08/25 08:56 05/08/25 08:56 Labs/Radiology: Radiology Impressions Abdomen/Pelvis CT 05/08/25 08:44 IMPRESSION: 1. Anterior abdominal wall hernia defect with small bowel loops extending through the hernia defect as described above. Findings are suspicious for the possibility of strangulation with partial small bowel obstruction. Recommend clinical correlation. ADDENDUM: 05/08/25 1045 COMMENT: THIS REPORT CONTAINS FINDINGS THAT MAY BE CRITICAL TO PATIENT CARE. The exam findings were verbally communicated by me to MARCO A GONSALEZ via telephone conference at 10:43 AM CDT on 05/08/2025. The findings were acknowledged and understood. Laboratory Results WBC 12.85 10^3/uL (3.29-11.43) H 05/08/25 08:56 RBC 5.75 10^6/uL (3.85-5.65) H 05/08/25 08:56 Hgb 15.90 g/dL (11.27-16.99) 05/08/25 08:56 Hct 49.2 % (36-47) H 05/08/25 08:56 MCV 85.6 fl (85-98) 05/08/25 08:56 MCH 27.7 pg (27-33) 05/08/25 08:56 MCHC 32.3 g/dL (30-55) 05/08/25 08:56 RDW 16.3 % (12.1-15.1) H 05/08/25 08:56 Plt Count 284 10^3/cmm (157-399) 05/08/25 08:56 MPV 9.4 fL (7.4-10.4) 05/08/25 08:56 Neut % (Auto) 59.1 % 05/08/25 08:56 Lymph % (Auto) 29.8 % 05/08/25 08:56 [place] % (Auto) 7.6 % 05/08/25 08:56 Eos % (Auto) 2.3 % 05/08/25 08:56 Baso % (Auto) 0.3 % 05/08/25 08:56 Neut # (Auto) 7.59 10^3/uL (1.8-7.7) 05/08/25 08:56 Lymph # (Auto) 3.8 10^3/uL (0.8-4.8) 05/08/25 08:56 [place] # (Auto) 1.0 10^3/uL (0.2-0.9) H 05/08/25 08:56 Eos # (Auto) 0.3 10^3/uL (0.0-0.8) 05/08/25 08:56 Baso # (Auto) 0.0 10^3/uL (0.0-0.1) 05/08/25 08:56 Nucleated RBC % (auto) 0 % 05/08/25 08:56 Nucleated RBCs # 0.0 /100WBC 05/08/25 08:56 Sodium 137 mmol/L (136-145) 05/08/25 08:56 Potassium 3.8 mmol/L (3.5-5.1) 05/08/25 08:56 Chloride 98 mmol/L (98-107) 05/08/25 08:56 Carbon Dioxide 23 mmol/L (22-29) 05/08/25 08:56 Anion Gap 19.8 (5-19) H 05/08/25 08:56 BUN 12 mg/dL (6-20) 05/08/25 08:56 Creatinine 0.5 mg/dL (0.5-0.9) 05/08/25 08:56 GFR Calculation 129.1 mL/min (90-130) 05/08/25 08:56 Glucose 166 mg/dL (65-115) H 05/08/25 08:56 POC Glucose 128 mg/dL (70-110) H 05/08/25 12:36 Estimat Average Glucose 114 05/08/25 08:56 Hemoglobin A1c 5.6 % (4.0-6.0) 05/08/25 08:56 Calculated Osmolality 288 mOsm/kg (285-295) 05/08/25 08:56 Lactic Acid 1.7 mmol/L (0.5-2.2) 05/08/25 08:56 Calcium 9.5 mg/dL (8.5-10.5) 05/08/25 08:56 Total Bilirubin 0.4 mg/dL (0.15-1.2) 05/08/25 08:56 AST 13 U/L (0-32) 05/08/25 08:56 ALT 16 U/L (0-33) 05/08/25 08:56 Alkaline Phosphatase 86 U/L (35-105) 05/08/25 08:56 Total Protein 6.8 g/dL (6.6-8.7) 05/08/25 08:56 Albumin 4.3 g/dL (3.5-5.2) 05/08/25 08:56 Globulin 2.5 g/dL (1.3-4.6) 05/08/25 08:56 Lipase 36 U/L (13-60) 05/08/25 08:56 Urine Color Yellow (Yellow) 05/08/25 10:04 Urine Appearance Cloudy (CLEAR) A 05/08/25 10:04 Urine pH 5 (5-7) 05/08/25 10:04 Ur Specific [place] 1.025 (1.005-1.030) 05/08/25 10:04 Urine Protein 1+ (Negative) H 05/08/25 10:04 Urine Glucose (UA) Norm (Normal) 05/08/25 10:04 Urine Ketones 1+ (Negative) H 05/08/25 10:04 Urine Blood 3+ (Negative) H 05/08/25 10:04 Urine Nitrate Positive (Negative) A 05/08/25 10:04 Urine Bilirubin Neg (Negative) 05/08/25 10:04 Urine Urobilinogen Neg mg/dL (Negative) 05/08/25 10:04 Ur Leukocyte Esterase Trace (Negative) H 05/08/25 10:04 Urine RBC 5-10 /hpf (0-2) H 05/08/25 10:04 Urine WBC 5-10 /hpf (0-5) H 05/08/25 10:04 Ur Squamous Epith Cells 5-10 /hpf (0-5) H 05/08/25 10:04 Calcium Oxalate Crystal 0-4 /hpf H 05/08/25 10:04 Amorphous Sediment Not Reportable 05/08/25 10:04 Urine Bacteria 3+ /hpf (NONE) H 05/08/25 10:04 Urine Mucus 1+ /hpf 05/08/25 10:04 All radiology interpretation(s) finalized by discharge Discharge Plan Discharge Patient Disposition: Admitted As Inpatient Admit Provider: Duran Pemberton Clinical Impression: Strangulated hernia of abdominal wall, Morbid obesity, Diabetes mellitus, Hypothyroidism Condition: Stable Coding Level of Care Code ED [employer] Technician for [facility]
--- NOTE | 2025-05-08 08:48 | ECG_ITS ---
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1970 Requested By: Marco A Mcfarland Order Number: [id number] Armando MD: ALICE RAMOS Measurements Intervals [place] Rate: 70 P: 71 [place]: 164 QRS: 6 QRSD: 94 T: 67 QT: 392 QTc: 424 Interpretive Statements SINUS RHYTHM WITH SINUS ARRHYTHMIA LOW QRS VOLTAGE IN PRECORDIAL LEADS [QRS DEFLECTION < 1.0 mV IN CHEST LEADS] POSSIBLE ANTERIOR MYOCARDIAL INFARCTION , PROBABLY OLD [30 ms Q WAVE IN V3/V4, OR R < 0.2 mV IN V4] No previous ECG available for comparison Electronically Signed On 05-09-2025 23:22:47 CDT by ALICE RAMOS [email or web address]
[2025-05-08 09:08] LABS: Hematocrit 49.2 % (36-47); Hemoglobin 15.90 g/dL (11.27-16.99); Mean Corpuscular HGB Conc 32.3 g/dL (30-55); Mean Corpuscular Hemoglobin 27.7 pg (27-33); Mean Corpuscular Volume 85.6 fl (85-98); Nucleated Red Blood Cells % 0 %; Platelet Count 284 10^3/cmm (157-399); Red Blood Count 5.75 10^6/uL (3.85-5.65); White Blood Count 12.85 10^3/uL (3.29-11.43)
[2025-05-08 09:29] LABS: Alanine Aminotransferase 16 U/L (0-33); Albumin Level 4.3 g/dL (3.5-5.2); Alkaline Phosphatase 86 U/L (35-105); Anion Gap 19.8 (5-19); Aspartate Amino Transferase 13 U/L (0-32); Blood Urea Nitrogen 12 mg/dL (6-20); Calcium 9.5 mg/dL (8.5-10.5); Carbon Dioxide 23 mmol/L (22-29); Chloride 98 mmol/L (98-107); Creatinine Clr Calc Pharmacy 214.2619; Globulin 2.5 g/dL (1.3-4.6); Glucose 166 mg/dL (65-115); Lipase 36 U/L (13-60); Osmolality Calculated 288 mOsm/kg (285-295); Potassium 3.8 mmol/L (3.5-5.1); Sodium 137 mmol/L (136-145); Total Protein 6.8 g/dL (6.6-8.7)
[2025-05-08 10:12] LABS: Lactic Sepsis W/Reflex 1.7 mmol/L (0.5-2.2)
[2025-05-08 10:18] LABS: Glucose Urine UA Norm (Normal); Specific Gravity, Urine 1.025 (1.005-1.030)
[2025-05-08 10:19] LABS: Add Urine Microscopic? YES; Nitrate Urine Positive (Negative); UA Manual Slide Review YES
[2025-05-08] MEDS: hyDRALAzine 20 mg/mL INJ 1 mL 10 MG IVP ×2 (10:57→16:42)
--- NOTE | 2025-05-08 12:01 | P.ANESASSM_ITS ---
Pre-Anesthetic Assessment Height/Weight: Height 1.63 m Weight 178.715 kg Temp Pulse Resp BP Pulse Ox O2 Del Method 97.6 F 83 24 H 201/155 95 Room Air 05/08/25 11:55 05/08/25 11:55 05/08/25 11:55 05/08/25 11:55 05/08/25 11:55 05/08/25 11:55 Operation Date: 05/08/25 12:30 Proposed Procedures p Exploratory Laparotomy(Not Applicable) - Duran Pemberton MD Familial anesthetic complications: none Was Beta Emilie taken within 24 hours: N/A Was Clonidine taken within 24 hours: N/A Social Alcohol and Tobacco Exam alert, oriented x 3, clear to auscultation bilaterally and regular rate & rhythm Airway Mallampati: Class IV Metabolic Diabetes Mellitus, Morbid Obesity and Thyroid Disease Anesthetic Plan ASA status: 4E Anesthesia: General Risk of > 500 ml blood loss (7ml/kg in children): No Medications/Allergies Home Medications ?Medication ?Instructions ?Recorded ?Confirmed ?Last Taken ?Type levothyroxine 125 mcg tablet 125 mcg PO QAM 05/08/25 1 05/07/25 08:00 History sertraline 100 mg tablet 100 mg PO DAILY 05/08/2506/2205/07/25 History tirzepatide (weight loss) 7.5 7.5 mg SUBCUT Q7D 05/08/25 05/02/25 History mg/0.5 mL subcutaneous pen injector (Zepbound) Allergies Allergy/AdvReac Type Severity Reaction Status Date / Time No Known Allergies Allergy Verified 08/03/24 14:52 Current Medications Generic Name Dose Route Start Last Admin Trade Name Freq PRN Reason Stop Dose Admin Cefazolin Sodium 3,000 mg/ 100 mls @ 200 mls/hr 05/08/25 12:36 05/08/25 12:43 Sodium Chloride IV 05/08/25 13:05 200 mls/hr ONCE ONE Administration Protocol [facility] Anesthesia Medical History (Updated 05/08/25 @ 12:39 by Duran Pemberton MD) Morbid obesity Abdominal wall hernia Hypothyroidism Diabetes mellitus PUD (peptic ulcer disease) Social History Smoking and tobacco/nicotine status: current every day tobacco/nicotine user Data Anesthesia 05/08/25 08:56 05/08/25 08:56 Short CBC 05/08/25 Range/Units 08:56 WBC 12.85 H (3.29-11.43) 10^3/uL Hgb 15.90 (11.27-16.99) g/dL Hct 49.2 H (36-47) % MCV 85.6 (85-98) fl Plt Count 284 (157-399) 10^3/cmm Neut % (Auto) 59.1 % Neut # (Auto) 7.59 (1.8-7.7) 10^3/uL BMP 05/08/25 08:56 Sodium 137 Potassium 3.8 Chloride 98 Carbon Dioxide 23 BUN 12 Creatinine 0.5 Glucose 166 H Calcium 9.5 Liver Function 05/08/25 Range/Units 08:56 Total Bilirubin 0.4 (0.15-1.2) mg/dL AST 13 (0-32) U/L ALT 16 (0-33) U/L Alkaline Phosphatase 86 (35-105) U/L Albumin 4.3 (3.5-5.2) g/dL Urine 05/08/25 Range/Units 10:04 Urine Color Yellow (Yellow) Urine Appearance Cloudy A (CLEAR) Urine pH 5 (5-7) Ur Specific [place] 1.025 (1.005-1.030) Urine Protein 1+ H (Negative) Urine Glucose (UA) Norm (Normal) Urine Ketones 1+ H (Negative) Urine Nitrate Positive A (Negative) Urine Bilirubin Neg (Negative) Ur Leukocyte Esterase Trace H (Negative) Urine RBC 5-10 H (0-2) /hpf Urine WBC 5-10 H (0-5) /hpf
--- NOTE | 2025-05-08 12:36 | PM.HP ---
Providers/Chief Complaint Primary Care Provider: ANA MARIA Spear Chief Complaint: ABD PAIN History of Present Illness Arely Landeros is a 54 year old female with multiple medical problems including diabetes, peptic ulcer disease, hypothyroidism, morbid obesity who presents with a chronically incarcerated ventral hernia. Radiology reporting a loop of small bowel in the hernia sac that is at risk of strangulation. Patient is tender at the hernia site. Patient is a smoker. Medications/Allergies Home Medications ?Medication ?Instructions ?Recorded ?Confirmed ?Last Taken ?Type levothyroxine 125 mcg tablet 125 mcg PO QAM 05/08/25 05/08/25 05/07/25 08:00 History sertraline 100 mg tablet 100 mg PO DAILY 05/08/25 05/08/25 05/07/25 History tirzepatide (weight loss) 7.5 7.5 mg SUBCUT Q7D 05/08/25 05/08/25 05/02/25 History mg/0.5 mL subcutaneous pen injector (Zepbound) Allergies Allergy/AdvReac Type Severity Reaction Status Date / Time No Known Allergies Allergy Verified 08/03/24 14:52 PFSH Acute PFSH: Medical History (Updated 05/08/25 @ 12:39 by Duran Pemberton MD) Morbid obesity Abdominal wall hernia Hypothyroidism Diabetes mellitus PUD (peptic ulcer disease) Social History Smoking and tobacco/nicotine status: current every day tobacco/nicotine user Vitals/I&O/Wt Last Vital Signs Temp 97.6 F 05/08/25 11:55 Pulse 83 05/08/25 11:55 Resp 24 H 05/08/25 11:55 BP 201/155 05/08/25 11:55 Pulse Ox 95 05/08/25 11:55 O2 Del Method Room Air 05/08/25 11:55 Weight last 48 hrs Weight 394 lb Physical Exam Narrative: Obese Chest: Unlabored breathing room air. No lymphadenopathy. Heart: Regular rate and rhythm. Abdomen: Soft, tender at hernia sac periumbilically, not peritonitic. Data 05/08/25 08:56 05/08/25 08:56 A&P Assessment and plan 1. Abdominal wall hernia: 2. Strangulated hernia of abdominal wall: Plan: 54-year-old female who presented with a chronically incarcerated ventral hernia. Radiology concerned about strangulated small bowel and hernia sac. Patient is tender at hernia site. Patient is confused. Had an extensive discussion with the and rest of the family about the risks and benefits of exploratory laparotomy, possible bowel resection, possible ostomy, possible hernia repair and he has decided to proceed. Answered all of his questions. POA understands that the patient has had high risk than average for perioperative complications including hernia recurrence, intra-abdominal abscesses, additional ventral hernias, small and large bowel injury, anastomotic leak, fascial dehiscence, prolonged intubation, prolonged hospital stay. I have explained to the alternative is to do serial abdominal exams and defer surgery, trend labs, however I do not advise this since she is obese and her abdominal exam is not reliable which could make the bowel in the hernia sac progress to ischemia. Patient's and rest of the family have decided to proceed with surgery. PDMP PDMP Reviewed: Not Reviewed Attestations Medical Necessity Statement*: Strangulated ventral hernia Coding Level of Care Code 41991 Diagnoses Abdominal wall hernia K43.9 Strangulated hernia of abdominal wall K43.6
[2025-05-08] MEDS: ceFAZolin 3,000 MG in sodium chloride 0.9% (plus) 100 ML 200 MG IV (12:43)
--- NOTE | 2025-05-08 13:47 | PM.OP ---
Operative Report Date of procedure: May 08, 2025 Pre-op diagnosis: Ventral hernia with strangulated small bowel Post-op diagnosis: same Post-op findings: Ventral hernia with strangulated small bowel. 50 cm of ischemic bowel (2 separate segments of 30 and 20 cm in mid ileum). Questionable viability at end of case. Decided to close the abdomen temporarily with ABThera. Procedure done: Exploratory laparotomy, abdominal washout, temporary closure with ABThera Implants: N/A Specimens removed/disposition: Hernia sac sent to pathology Pathology: Hernia sac sent to pathology Surgeon: Duran Pemberton MD Charge Master Analyst: N/A Anesthesia: General Estimated blood loss (mL): 50 Complications: N/A Findings: Ventral hernia with strangulated small bowel. 50 cm of ischemic bowel (2 separate segments of 30 and 20 cm in mid ileum). Questionable viability at end of case. Decided to close the abdomen temporarily with ABThera. Brief History: 54-year-old female with a chronically incarcerated ventral hernia. Today presented with strangulated small bowel. Discussed risk and benefits and patient's POA decided to proceed with exploratory laparotomy, possible bowel resection, possible ostomy, possible ventral hernia repair. Procedure: Prophylactic antibiotics administered. Patient was then transferred to the ICU. Given her morbid obesity we did not have SCDs that would fit her. General anesthesia was induced. A Pacheco catheter was placed without complications. The abdomen was prepped and draped in usual sterile fashion. A generous midline laparotomy incision was carried out using a 10 blade. Soft tissues were dissected down to fascia using electrocautery. We did encounter the hernia sac which was dissected off the subcutaneous tissues using a combination of blunt and sharp dissection. The fascial defect of the hernia was extremely deep given her thick pannus. In order to avoid injury to the small bowel I decided to open the abdomen in the midline. I entered the abdomen using sharp scissors. Once I opened the peritoneal cavity, the hernia sac started reduced into the abdomen. I then proceeded to open the hernia sac which contained 50 cm of ischemic bowel (2 separate segments of 30 and 20 cm in mid ileum). The hernia sac also contained a large amount of omentum. This was quite an extensive dissection and the omentum became bloody. Hemostasis was achieved using a LigaSure impact. The omentum was reduced into the abdomen. The small bowel was ran from ligament of Treitz to the cecum 5 times and I confirmed that the rest of the bowel was healthy. I also inspected the cecum and the ascending colon, the transverse colon and the descending colon as well as the rectum which all looked healthy. I let the loops of small bowel that looked ischemic and warm saline for 20 minutes. These loops of ischemic bowel were still of questionable viability after 20 minutes. I then decided to washout the abdomen with 2 L normal saline. And closed the abdomen temporarily with an ABThera for reexploration the following day. The family was updated and they were in agreement with this plan. Patient was then transferred to the ICU in stable but critical condition.
--- NOTE | 2025-05-08 13:55 | PC.NURSE ---
Pt arrives to ICU from surgery. Pt intubated. NG noted in left nostril. One peripheral IV noted in left Forearm. Wound vac patent and draining, in mid abdomen.
[2025-05-08] MEDS: propofol 1,000 MG/100 ML INJ 10.72 MG IV (14:00)
--- NOTE | 2025-05-08 14:00 | ANE.PACU2 ---
Inpatient post-anesthesia follow up: Airway intact: No Vital signs: Temperature 98.1 F Pulse Rate 90 Respiratory Rate 21 Blood Pressure 124/96 Pulse Oximetry 98 Oxygen Delivery Me thod Nasal Cannula Oxygen Flow Rate 2 Fraction of Inspir ed Oxygen 30 Hydration adequate: Yes Nausea and vomiting: No Pain level: 1 Mental status: Altered
--- NOTE | 2025-05-08 14:10 | PC.NURSE ---
Dr Paul at bedside ordered Fentanyl and Propofol for sedation. Started these gtts. Peripheral IV immediately infiltrated. Pt waking, appears to be in discomfort. While this nurse attempting US IV, Charge nurse notified Anesthesia they needed to come help get access. Anesthesia using US accessed right upper forearm. This nurse accessed left upper chest with 20 gauge. Both flushed. Sedatin medications to upper left chest IV.
--- NOTE | 2025-05-08 14:44 | PM.CONSULT ---
Providers/Reason For Consult Consulting Physician/Specialty*: Dr. Pemberton, General surgery Reason for Consult*: Medical management Requesting Physician: Dr. Pemberton Attending Physician: Duran Pemberton MD Primary Care Provider: ANA MARIA Spear History of Present Illness History of Present Illness Arely Landeros is a 54 year old morbidly obese female presenting with chronically incarcerated ventral hernia. She was taken to OR per general surgery for exploratory laparotomy with abdominal washout and release of strangulation of small bowel. Estimated about 50 cm of ischemic bowel. Temporary closure placed to allow for possible reperfusion of bowel and surgery will take her to OR again in the AM for second look exploration and possible resection of bowel if no improvement. We will maintain her on sedation and mechanical ventilation overnight. Review of Systems General: Reports: ROS unobtainable due to endotracheal tube and ROS unobtainable due to medical condition Medications/Allergies Home Medications ?Medication ?Instructions ?Recorded ?Confirmed ?Last Taken ?Type levothyroxine 125 mcg tablet 125 mcg PO QAM 05/08/25 05/08/25 05/07/25 08:00 History sertraline 100 mg tablet 100 mg PO DAILY 05/08/25 05/08/25 05/07/25 History tirzepatide (weight loss) 7.5 7.5 mg SUBCUT Q7D 05/08/25 05/08/25 05/02/25 History mg/0.5 mL subcutaneous pen injector (Zepbound) Allergies Allergy/AdvReac Type Severity Reaction Status Date / Time No Known Allergies Allergy Verified 08/03/24 14:52 PFSH Acute PFSH: Medical History (Updated 05/08/25 @ 12:39 by Duran Pemberton MD) Morbid obesity Abdominal wall hernia Hypothyroidism Diabetes mellitus PUD (peptic ulcer disease) Social History Smoking and tobacco/nicotine status: current every day tobacco/nicotine user Vitals/I&O/Wt Last Vital Signs Temp 97.6 F 05/08/25 11:55 Pulse 83 05/08/25 11:55 Resp 14 05/08/25 14:19 BP 201/155 05/08/25 11:55 Pulse Ox 98 05/08/25 14:19 O2 Del Method Room Air 05/08/25 11:55 FiO2 50 05/08/25 14:19 05/07/25 05/08/25 05/08/25 22:59 06:59 14:59 Intake Total 100 / 100 Balance 100 / 100 Weight last 48 hrs Weight 178.715 kg Physical Exam Const: OTHER: sedated HENMT: COMMON NORMALS: normocephalic and atraumatic HEAD & SCALP: normocephalic and atraumatic Eye: COMMON NORMALS: Equal, round and reactive pupils present PUPIL: Yes Equal, round and reactive pupils present Resp: COMMON NORMALS: clear to auscultation bilaterally AUSCULTATION: clear to auscultation bilaterally OTHER: on vent Cardio: COMMON NORMALS: regular rate, regular rhythm, S1 normal heart sound present and S2 normal heart sound present RATE: regular rate RHYTHM: regular rhythm HEART SOUNDS: S1 normal heart sound present and S2 normal heart sound present GI: OTHER: abdominal surgical site with wound vac in place. Skin: NARRATIVE SKIN EXAM: intertigio at breasts, pannus, groin Urinary Catheter Management: Pacheco: Cath Placed During This Visit: yes Urinary Catheter Date of Insertion: 05/08/25 Urinary Catheter Time of Insertion: 12:53 Data 05/08/25 08:56 05/08/25 08:56 A&P Assessment and plan 1. Strangulated hernia of abdominal wall: 2. Morbid obesity: 3. Hypothyroidism: 4. Diabetes mellitus: 5. PUD (peptic ulcer disease): Plan: 54 year old female presenting with ventral hernia with strangulation of small bowel. Admitted to surgery. Hospitalists consulted for medical, vent management while in ICU. Ventral hernia with strangulation of small bowel - mgmt per general surgery - resection of hernia sac, exploration laparotomy with abdominal washout, temporary closure - plan for second look laparotomy in the AM, possible small bowel resection - patient is currently sedated with fentanyl, propofol - antiemetic, analgesic provided - RT following vent, currently satting well on 50% FIO2, PEEP 8. - zosyn ordered hypothyroidism - OK to hold levothyroxine for now, resume when able to take PO Anxiety - hold sertraline Morbid obesity - BMI 67.6 - hold tirzepatide - check A1c - SSI Diet: NPO PPx: per surgery Disposition - ICU on vent. - second look laparotomy in the AM. PDMP PDMP Reviewed: Not Reviewed Consult Attestations Medical Necessity Statement: Anticipate > 2 midnights for incarcerated hernia with small bowel ischemia Time Spent in Patient Care: Greater than 35 minutes (>than 50% of time spent in counselling and/or direct pt care on unit). Critical Care Time: The high probability of a clinically significant, sudden or life threatening deterioration of the patient's [] system(s) required my full and direct attention, intervention and personal management. The critical care time is as shown. This time is in addition to time spent performing any reported procedures but includes the following: [x] Data and vital sign review and interpretation [x] Patient assessment, examination and intervention [x] Documentation [x] Medication orders and management Critical Care Time (min): 35 Coding Level of Care Code Acute Code for Chg Fwd Diagnoses Strangulated hernia of abdominal wall K43.6 Morbid obesity E66.01 Hypothyroidism E03.9 Diabetes mellitus E11.9 PUD (peptic ulcer disease) K27.9
[2025-05-08 16:16] LABS: Estmated Average Glucose 114; Hemoglobin A1C 5.6 % (4.0-6.0)
[2025-05-08] MEDS: piperacillin-tazobactam 3.375 GM in sodium chloride 0.9% (plus) 50 ML IV (16:23)
[2025-05-08] MEDS: propofol 1,000 MG/100 ML INJ 42.89 MG IV (16:49)
--- NOTE | 2025-05-08 17:00 | PC.NURSE ---
Right PIID, just started IVF and Zosyn, has now infiltrated. Removed intact. applied a warm/hot pack for comfort.
[2025-05-08 17:18] LABS: ABG PCO2 51.0 mmHg (35-45); ABG PH Result 7.36 (7.35-7.45); Arterial Blood Gas Hematocrit 48.9 % (37-47); Blood Gas Allen Test Pos; Blood Gas Sample Site Radial, right; Blood Gas Sample Type Arterial; Carboxyhemoglobin 2.5 %THgb (0.4-20.1); Glucose Level-ABG 133.0 mg/dL (70-115); HCO3 ABG 28.4 mmol/L (22-26); Ionized Calcium Level - ABG 1.2 mmol/L (1.1-1.4); Methemoglobin 1.1 % (0.4-1.5); Oxygen Saturation ABG 98.3; PO2 ABG 109.0 mmHg (80.0-100.0); Potassium Level - ABG 4.0 mmol/L (3.5-5.0); Sodium Level - ABG 140.0 mmol/L (131-143)
[2025-05-08 17:19] LABS: Alveolar-Arterial Oxygen Gradi 23.9 mmHg (5-10); Blood Gas Operator Identificat BROMA; Blood Gas Tidal Volume 0.40; PEEP 8.0 cmH20; PO2 FiO2 Ratio Arterial Blood 218
--- NOTE | 2025-05-08 17:28 | XRR_ITS ---
PROCEDURE INFORMATION: Exam: XR Chest Exam date and time: 05/08/2025 5:47 PM Age: 54 years old Clinical indication: Device placement; Ett placement (vent status); Prior surgery; Surgery date: Post-operative (0-2 days); Surgery type: Hernia; Additional info: Ett/og placement TECHNIQUE: Imaging protocol: Radiologic exam of the chest. Views: 1 view. COMPARISON: CR (CHEST, ) 05/08/2025 8:56 AM FINDINGS: Tubes, catheters and devices: NG tube. ETT 5.8 cm above alec. Lungs: Low lung volumes with nonspecific haziness, likely due to low lung volumes though nonspecific. Pleural spaces: Unremarkable. No pleural effusion. No pneumothorax. Heart/Mediastinum: Unremarkable. No cardiomegaly. Bones/joints: Unremarkable. XR/XR chest 1V portable [id number] IMPRESSION: ETT 5.8 cm above alec. NG tube tip likely below the inferior edge of the current film.
[2025-05-08] MEDS: propofol 1,000 MG/100 ML INJ 53.62 MG IV ×2 (19:07→23:16)
--- NOTE | 2025-05-08 20:34 | PC.NURSE ---
Shift summary: pt remains sedated and intubated. Fio2 now at 50%. Fentanyl now at 200mcg/hr and Propofol infusing at 50 mcg/kg/min. IVF at 150ml/hr. There was some difficulty maintaining patent peripheral IV in her arms, she now has 2 peripheral IVs bilat chest. Ng remains in place in left nostril. She has excoriation/ plaque under both breasts, mostly midline. She has some excoriation under her pannis. Her BP was elevated, one time hydralazine admin. her BP remained elevated, Dr notified, Esmolol ordered. Propofol just increased for her comfort. This lowered her BP enough, Esmolol not indicated at this time. Urine output of 350 ml noted.
[2025-05-08] MEDS: propofol 1,000 MG/100 ML INJ 48.25 MG IV (21:07)
[2025-05-09] VITALS (80 sets, daily range): BP systolic 100–185; BP diastolic 53–119; PULSE 61–118; RESP 12–24; TEMP 36.6–37.3; O2SAT 87–100
[2025-05-09] MEDS: chlorhexidine gluconate 4% Btl 118 mL 1 APPLIC TOPICAL (00:11)
[2025-05-09] MEDS: piperacillin-tazobactam 3.375 GM in sodium chloride 0.9% (plus) 50 ML IV ×3 (00:46→15:15)
[2025-05-09] MEDS: propofol 1,000 MG/100 ML INJ 48.25 MG IV ×3 (01:14→10:13)
--- NOTE | 2025-05-09 01:43 | PC.NURSE ---
MTS contacted due to ventilator criteria. Reference number [id number].
[2025-05-09 05:06] LABS: ABG PCO2 49.5 mmHg (35-45); ABG PH Result 7.36 (7.35-7.45); Alveolar-Arterial Oxygen Gradi 12.5 mmHg (5-10); Arterial Blood Gas Hematocrit 46.1 % (37-47); Blood Gas Allen Test Pos; Blood Gas Operator Identificat JDB; Blood Gas Sample Site Radial, right; Blood Gas Sample Type Arterial; Blood Gas Tidal Volume 0.40; Carboxyhemoglobin 1.2 %THgb (0.4-20.1); Glucose Level-ABG 121.0 mg/dL (70-115); HCO3 ABG 27.9 mmol/L (22-26); Ionized Calcium Level - ABG 1.1 mmol/L (1.1-1.4); Methemoglobin 1.1 % (0.4-1.5); Oxygen Saturation ABG 98.9; PO2 ABG 126.0 mmHg (80.0-100.0); PO2 FiO2 Ratio Arterial Blood 315; Potassium Level - ABG 3.7 mmol/L (3.5-5.0); Sodium Level - ABG 139.0 mmol/L (131-143)
[2025-05-09 05:07] LABS: PEEP 8.0 cmH20
[2025-05-09 05:36] LABS: Hematocrit 45.6 % (36-47); Hemoglobin 14.40 g/dL (11.27-16.99); Mean Corpuscular HGB Conc 31.6 g/dL (30-55); Mean Corpuscular Hemoglobin 27.2 pg (27-33); Mean Corpuscular Volume 86.2 fl (85-98); Nucleated Red Blood Cells % 0 %; Platelet Count 262 10^3/cmm (157-399); Red Blood Count 5.29 10^6/uL (3.85-5.65); White Blood Count 14.73 10^3/uL (3.29-11.43)
[2025-05-09 05:59] LABS: Albumin Level 3.1 g/dL (3.5-5.2); Alkaline Phosphatase 72 U/L (35-105); Blood Urea Nitrogen 13 mg/dL (6-20); Calcium 7.9 mg/dL (8.5-10.5); Carbon Dioxide 24 mmol/L (22-29); Chloride 103 mmol/L (98-107); Creatinine Clr Calc Pharmacy 218.6044; Globulin 2.6 g/dL (1.3-4.6); Glucose 116 mg/dL (65-115); Osmolality Calculated 289 mOsm/kg (285-295); Sodium 139 mmol/L (136-145); Total Protein 5.7 g/dL (6.6-8.7)
[2025-05-09 06:15] LABS: Alanine Aminotransferase 12 U/L (0-33); Anion Gap 16.3 (5-19); Aspartate Amino Transferase 15 U/L (0-32); Potassium 4.3 mmol/L (3.5-5.1)
--- NOTE | 2025-05-09 08:04 | P.PN_ITS ---
Subjective 2 Subjective: No pressors Intubated sedated Wound VAC serosanguineous Vitals/I&O/Wt Last Vital Signs Temp 98.0 F 05/09/25 04:00 Pulse 70 05/09/25 06:45 Resp 16 05/09/25 03:37 BP 116/60 05/09/25 06:45 Pulse Ox 95 05/09/25 06:45 O2 Del Method Mechanical Ventilation 05/09/25 04:00 O2 Flow Rate 100 05/08/25 13:55 FiO2 40 05/09/25 04:00 05/08/25 05/09/25 05/09/25 22:59 06:59 14:59 Intake Total 394.487 / 9328.166 8940.317 / 4046.804 Output Total 1050 / 1100 550 / 1650 Balance -655.513 / 080.397 0355.317 / 2396.804 Weight last 48 hrs Weight 390 lb 3.491 oz Weight 405 lb 10.409 oz Weight 394 lb Physical Exam 2 Narrative: Chest: Intubated on the vent Heart: Regular rate and rhythm. No pressors Abdomen: Soft, nontender, nondistended. ABThera in place. Serosanguineous output Urinary Catheter Management: Pacheco: Cath Placed During This Visit: yes Reason for Continuing Indwelling Catheter: Accurate Measurement of Urinary Output in Critically Ill Patients Urinary Catheter Date of Insertion: 05/08/25 Urinary Catheter Time of Insertion: 12:53 Data 05/09/25 04:20 05/09/25 04:20 A&P Assessment and plan 1. Strangulated hernia of abdominal wall: 2. Ischemia, bowel: Plan: 54-year-old female who presented with strangulated bowel and a chronically incarcerated ventral hernia. Multiple comorbidities including morbid obesity. Consented mother for opening of recent exploratory laparotomy, possible bowel resection, possible ostomy, possible closure. Had an extensive discussion with the mother. Answered all of her questions. Mother knows that the risks of surgery include all of the was discussed prior to yesterday's surgery as she was present for the discussion together with the . She decides to proceed. I tried obtaining consent from the but I was unable to reach him despite multiple calls. PDMP PDMP Reviewed: Not Reviewed Attestations 2 Medical Necessity Statement*: N/A Coding Level of Care Code 21043 Diagnoses Strangulated hernia of abdominal wall K43.6 Ischemia, bowel K55.9
--- NOTE | 2025-05-09 08:05 | PC.NURSE ---
Pt off unit to surgery.
--- NOTE | 2025-05-09 08:41 | P.ANESUD_ITS ---
Pre-Anesthetic Update Pre-Anesthetic Assessment: Date of Surgery/Procedure: 05/09/25 Proposed Procedure: Operation Date: 05/08/25 12:30 Proposed Procedures p Exploratory Laparotomy(Not Applicable) - Duran Pemberton MD Operation Date: 05/09/25 08:00 Proposed Procedures p Exploratory Laparotomy(Not Applicable) - Duran Pemberton MD Any changes to Pre-Anesthetic Assessment?: Yes Changes from Pre- Anesthetic Assessment: intubated and sedated Labs Last 48hrs: Short CBC 05/08/25 05/09/25 Range/Units 08:56 04:20 WBC 12.85 H 14.73 H (3.29-11.43) 10^ 3/uL Hgb 15.90 14.40 (11.27-16.99) g/ dL Hct 49.2 H 45.6 (36-47) % MCV 85.6 86.2 (85-98) fl Plt Count 284 262 (157-399) 10^3/c mm Neut % (Auto) 59.1 77.0 % Neut # (Auto) 7.59 11.34 H (1.8-7.7) 10^3/u L BMP 05/08/25 05/09/25 08:56 04:20 Sodium 137 139 Potassium 3.8 4.3 Chloride 98 103 Carbon Dioxide 23 24 BUN 12 13 Creatinine 0.5 0.5 Glucose 166 H 116 H Calcium 9.5 7.9 L Liver Function 05/08/25 05/09/25 Range/Units 08:56 04:20 Total Bilirubin 0.4 0.3 (0.15-1.2) mg/dL AST 13 15 (0-32) U/L ALT 16 12 (0-33) U/L Alkaline Phosphata se 86 72 (35-105) U/L Albumin 4.3 3.1 L (3.5-5.2) g/dL Urine 05/08/25 Range/Units 10:04 Urine Color Yellow (Yellow) Urine Appearance Cloudy A (CLEAR) Urine pH 5 (5-7) Ur Specific [place] 1.025 (1.005-1.030) Urine Protein 1+ H (Negative) Urine Glucose (UA) Norm (Normal) Urine Ketones 1+ H (Negative) Urine Nitrate Positive A (Negative) Urine Bilirubin Neg (Negative) Ur Leukocyte Cristina ase Trace H (Negative) Urine RBC 5-10 H (0-2) /hpf Urine WBC 5-10 H (0-5) /hpf ABG 05/08/25 05/09/25 17:05 04:53 Specimen Type Arterial Arterial Sample Site Radial, right Radial, right ABG pH 7.36 7.36 ABG pCO2 51.0 H 49.5 H ABG pO2 109.0 H 126.0 H ABG PO2/FiO2 Ratio 218 315 ABG HCO3 28.4 H 27.9 H ABG O2 Saturation 98.3 98.9 ABG Base Excess 1.8 1.5 A-a O2 Gradient 23.9 H 12.5 H O2 Delivery Device Vent Vent FiO2 50.0 40.0 Tidal Volume 0.40 0.40 PEEP 8.0 8.0 Vitals: Temperature 99.2 F 05/09/25 07:30 Temperature Source Axillary 05/09/25 07:30 Pulse Rate 70 05/09/25 07:30 Pulse Rhythm Regular 05/09/25 07:53 Pulse Strength 3+ Normal 05/09/25 07:53 Respiratory Rate 14 05/09/25 07:30 Respiratory Effort Spontaneous, Non- Labored 05/09/25 07:53 Respiratory Depth Normal 05/09/25 07:53 Respiratory Patter n Normal 05/08/25 14:00 Blood Pressure 111/56 05/09/25 07:30 Blood Pressure Binta n 74 05/09/25 07:30 Blood Pressure Pos ition Semi Fowlers 05/08/25 08:38 Pulse Oximetry 96 05/09/25 07:30 Oxygen Delivery Me thod Mechanical Ventil ation 05/09/25 07:30 Oxygen Flow Rate 100 05/08/25 13:55 Fraction of Inspir ed Oxygen 30 05/09/25 07:53 Sepsis Recent Feve r Within 48 Hours No 05/08/25 08:38 Exam: Pre-Anes Outpt Exam: alert, clear to auscultation bilaterally and regular rate & rhythm
--- NOTE | 2025-05-09 08:42 | P.ANES_ITS ---
Anesthesia Procedures Procedure/Date: 05/09/25 Central Venous Insert: Central Venous Line: Difficult IV Access Time Out Performed: Yes Consent: from other (patient's mother - Radha Gustafson) and risks and benefits reviewed Central Line: New Anesthesia monitors: pulse oximetry, EKG, BP cuff and oxygen Vein cannulated: right internal jugular Ultrasound used: to identify patency to vessel and to visualize needle entry to vein Post procedure: Obtain Chest X-Ray Additional Comments: R face neck and chest prepped with chloraprep, full body drape applied, re- prepped window with chloraprep, US used to visualize R IJ and seldinger technique used to gain access to vessel with 18g catheter.Guidewire identified in vessel on US both in-plane and [id number]. Vein dilated, and triple lumen advanced over guidewire, guidewire removed. All lumens aspirated heme and flushed with saline. Biopatch applied, Sutured catheter in place.
--- NOTE | 2025-05-09 09:41 | P.OP_ITS ---
Operative Report Date of procedure: May 09, 2025 Pre-op diagnosis: Ventral hernia with strangulated small bowel Post-op diagnosis: same Post-op findings: 20 cm of necrotic mid ileum. Rest of bowel healthy and viable. Closed abdomen. Procedure done: Opening of recent exploratory laparotomy, bowel resection, closure Implants: N/A Specimens removed/disposition: 20 cm of necrotic mid ileum sent to pathology Pathology: 20 cm of necrotic mid ileum sent to pathology Surgeon: Duran Pemberton MD Partition Assembly Machine Operator: N/A Anesthesia: General Estimated blood loss (mL): 30 Urine output: Clear urine Complications: N/A Findings: 20 cm of necrotic mid ileum. Rest of bowel viable. Perform small bowel anastomosis. Satisfied with the result of the anastomosis. Washed out the abdomen using Irrisept. Closed the abdomen. Condition: stable Disposition: ICU Brief History: 54-year-old female who presented with a chronically incarcerated ventral hernia that now contained strangulated small bowel. Performed ex lap on 05/08/2025. Closed temporarily with an ABThera for reexploration given 50 cm of ischemic mid ileum. Discussed risk and benefits with patient's mother who decided to proceed with opening of recent exploratory laparotomy, possible bowel resection, possible ostomy, possible closure. Procedure: Consent obtained in the ICU. Patient was transported from ICU to OR. Patient was placed in the operating room table in supine positioning. Anesthesia placed a right IJ central line. The abdomen was then prepped and draped in the usual sterile fashion. The ABThera dressing was removed. The abdomen was washed out with 1 L of warm normal saline. I proceeded to run the bowel 2 times from ligament of Treitz towards the cecum. I did identify that 20 cm of mid ileum appeared necrotic. I then proceeded to resect this loop of necrotic mid ileum of 20 cm. I performed an enterotomy using electrocautery proximal and distal to this loop of bowel that was being resected. I then introduced a laparoscopic LIANNA stapler with a 45 mm blue load. I proceeded to create the anastomosis. I inspected the anastomosis afterwards and was satisfied with its patency. I proceeded to close the enterotomy using a 30 mm TA stapler. I then proceeded to resect the necrotic small bowel segment by creating a window in the mesentery on the proximal distal end. I then used two 45 mm blue load of the Endo LIANNA stapler to transect the proximal and distal end of necrotic small bowel. I then proceeded to transect the mesentery of the necrotic small bowel using LigaSure impact. I passed off the specimen off 20 cm of necrotic mid ileum which was sent to pathology. I then proceeded to close the mesenteric defect using 3-0 silk. I proceeded to oversew the staple lines using multiple interrupted 3-0 silk. I placed a single interrupted 3-0 silk stitch at the crotch of the anastomosis. I inspected the anastomosis 1 last time and was satisfied with the result. I ran the bowel 3 more times from ligament of Treitz to the cecum and confirmed that the rest of the bowel was viable. I then inspected the ascending colon, the transverse colon, the descending colon, and the rectum which all appeared healthy. I then washed the abdomen with 450 cc of Irrisept. I confirmed that all counts were correct. I then proceeded to close the fascia using 2 #1 looped PDS. The original fascial defect was incorporated in this closure. Subcutaneous tissues were washed out. Skin was closed with aleksandra. A sterile dressing was applied. The patient was transferred to the ICU without any complications. No pressors at end of case. Family updated.
--- NOTE | 2025-05-09 09:55 | PC.NURSE ---
Pt arrives back to ICU from surgery. She remains intubated and sedated. New CVL noted in right neck. Chest xray ordered for placement confirmation. WOund vac gone. Silverlon dressing noted mid line abdomen.
--- NOTE | 2025-05-09 10:01 | XRR_ITS ---
PROCEDURE INFORMATION: Exam: XR Chest Exam date and time: 05/09/2025 10:05 AM Age: 54 years old Clinical indication: Other: F/u cxr; Prior surgery; Surgery date: Post-operative (0-2 days); Surgery type: Hernia; Additional info: Tube TECHNIQUE: Imaging protocol: Radiologic exam of the chest. Views: 1 view. COMPARISON: CR (CHEST, ) 05/08/2025 5:47 PM FINDINGS: Tubes, catheters and devices: Right IJ approach central line is in satisfactory position, with distal tip at the level of the SVC/RA junction. Endotracheal tube is in satisfactory position. Feeding tube is in satisfactory position. Lungs: Low lung volumes. There are increased lung markings and haziness of the lungs, which in the setting of cardiomegaly is suggestive of pulmonary congestion. Pneumonia should be excluded clinically. Pleural spaces: Unremarkable. No pleural effusion. No pneumothorax. Heart/Mediastinum: Stable cardiomediastinal silhouette. Bones/joints: Unremarkable. XR/XR chest 1V portable [id number] IMPRESSION: Imaging findings suggestive of pulmonary congestion. Pneumonia should be excluded clinically.
--- NOTE | 2025-05-09 10:05 | ANE.PACU2 ---
Inpatient post-anesthesia follow up: Airway intact: No Vital signs: Temperature 99.2 F Pulse Rate 70 Respiratory Rate 14 Blood Pressure 111/56 Pulse Oximetry 96 Oxygen Delivery Me thod Mechanical Ventila tion Oxygen Flow Rate 100 Fraction of Inspir ed Oxygen 30 Hydration adequate: Yes Nausea and vomiting: No Pain level: 1 Mental status: Altered
--- NOTE | 2025-05-09 10:41 | P.PN_ITS ---
Subjective 2 Subjective: Hemodynamically stable After in the morning was serosanguineous Abdomen is now closed. Resected loop of necrotic small bowel and performed anastomosis. Vitals/I&O/Wt Last Vital Signs Temp 99.2 F 05/09/25 07:30 Pulse 70 05/09/25 07:30 Resp 16 05/09/25 10:04 BP 111/56 05/09/25 07:30 Pulse Ox 97 05/09/25 10:04 O2 Del Method Mechanical Ventilation 05/09/25 07:30 O2 Flow Rate 100 05/08/25 13:55 FiO2 40 05/09/25 10:04 05/08/25 05/09/25 05/09/25 22:59 06:59 14:59 Intake Total 394.487 / 0929.414 7841.317 / 4046.804 100 / 100 Output Total 1050 / 1100 550 / 1650 475 / 475 Balance -655.513 / 841.927 3070.317 / 2396.804 -375 / -375 Weight last 48 hrs Weight 390 lb 3.491 oz Weight 405 lb 10.409 oz Weight 394 lb Physical Exam 2 Narrative: Chest: Intubated on mechanical ventilation Heart: Regular rate and rhythm. Hemodynamically acceptable Abdomen: Soft, nondistended. Now closed. Urinary Catheter Management: Pacheco: Cath Placed During This Visit: yes Reason for Continuing Indwelling Catheter: Accurate Measurement of Urinary Output in Critically Ill Patients Urinary Catheter Date of Insertion: 05/08/25 Urinary Catheter Time of Insertion: 12:53 Data 05/09/25 04:20 05/09/25 04:20 Micro: Microbiology 05/08/25 10:04 Urine Culture - Preliminary Urine,Clean Catch Gram Negative Rods A&P PDMP PDMP Reviewed: Not Reviewed Coding Level of Care Code Acute Code for Chg Fwd
[2025-05-09] MEDS: heparin 5,000 unit/mL INJ 1 mL 5000 UNIT SUBCUT ×2 (11:51→17:40)
--- NOTE | 2025-05-09 13:30 | PC.NURSE ---
Pt extubated to 2lpm/NC. NG remains intact in left nostril. restraints removed.
--- NOTE | 2025-05-09 13:41 | P.PN_ITS ---
Subjective 2 Subjective: S/P second look laparotomy. Extubating today. Vitals/I&O/Wt Last Vital Signs Temp 99.2 F 05/09/25 07:30 Pulse 70 05/09/25 07:30 Resp 19 H 05/09/25 12:20 BP 111/56 05/09/25 07:30 Pulse Ox 97 05/09/25 12:20 O2 Del Method Mechanical Ventilation 05/09/25 07:30 O2 Flow Rate 100 05/08/25 13:55 FiO2 30 05/09/25 12:20 05/08/25 05/09/25 05/09/25 22:59 06:59 14:59 Intake Total 394.487 / 3459.894 8836.317 / 4046.804 1358.492 / 1358.492 Output Total 1050 / 1100 550 / 1650 475 / 475 Balance -655.513 / 919.115 6421.317 / 2396.804 883.492 / 883.492 Weight last 48 hrs Weight 177 kg Weight 184 kg Weight 178.715 kg Physical Exam 2 Narrative: Physical Exam Const: Weaning sedation, responding well, m oves all 4 extremi ties. HENMT: normocephalic and atraumatic Eye: Equal, round and r eactive pupils pre sent Resp: clear to auscultat ion bilaterally, o n vent. Cardio: regular rate & rhy thm, S1/S2 normal. GI: surgical incision closed with staple s Skin: intertigio at yaron sts, pannus, groin Urinary Catheter Management: Pacheco: Cath Placed During This Visit: yes Reason for Continuing Indwelling Catheter: Accurate Measurement of Urinary Output in Critically Ill Patients Urinary Catheter Date of Insertion: 05/08/25 Urinary Catheter Time of Insertion: 12:53 Data 05/09/25 04:20 05/09/25 04:20 Micro: Microbiology 05/08/25 10:04 Urine Culture - Preliminary Urine,Clean Catch Gram Negative Rods A&P Assessment and plan 1. Ischemia, bowel: 2. Strangulated hernia of abdominal wall: 3. Morbid obesity: Plan: 54 year old female presenting with ventral hernia with strangulation of small bowel. Admitted to surgery. Hospitalists consulted for medical, vent management while in ICU. Ventral hernia with strangulation of small bowel - mgmt per general surgery - initial surgery with resection of hernia sac, exploration laparotomy with abdominal washout, temporary closure with wound vac. - second look laparotomy this AM with resection of about 20 cm of necrotic mid ileum with anastomosis. Abdomen then closed. - antiemetic, analgesic provided - RT following vent. Extubation for today. - zosyn ordered, cont. for 3 days post surgery - keep NGT to LIS - analgesia: dilaudid 0.5 mg Q4H PRN after sedation is weaned. - post surgical hypertension has resolved. esmolol was ordered but has not been needed. hypothyroidism - OK to hold levothyroxine for now, resume when able to take PO Anxiety - hold sertraline Morbid obesity - BMI 67.6 - hold tirzepatide - A1c 5.6, nondiabetic range. - SSI Diet: NPO, advance when cleared by surgery PPx: per surgery Disposition - ICU on vent, extubate today. - may be able to downgrade in AM if no other issues. PDMP PDMP Reviewed: Not Reviewed Attestations 2 Medical Necessity Statement*: Ongoing inpatient admisison for small bowel resection Time Spent in Patient Care: Greater than 35 minutes (>than 50% of time spent in counselling and/or direct pt care on unit) . Critical Care Time: The high probability of a clinically significant, sudden or life threatening deterioration of the patient's [] system(s) required my full and direct attention, intervention and personal management. The critical care time is as shown. This time is in addition to time spent performing any reported procedures but includes the following: [x] Data and vital sign review and interpretation [x] Patient assessment, examination and intervention [x] Documentation [x] Medication orders and management Critical Care Time (min): 35 Coding Level of Care Code Acute Code for Chg Fwd Diagnoses Ischemia, bowel K55.9 Strangulated hernia of abdominal wall K43.6 Morbid obesity E66.01
--- NOTE | 2025-05-09 14:30 | PC.NURSE ---
Fentanyl and Propofol gtt wasted, see MAR for amounts. Witnessed by HARDY Fonseca.
[2025-05-09] MEDS: HYDROmorphone 0.5 MG/0.5 ML INJ IVP ×3 (15:14→20:28)
[2025-05-09] MEDS: ondansetron 2 mg/ML SDV 2 mL 4 MG IVP (16:59)
--- NOTE | 2025-05-09 19:35 | PC.NURSE ---
Shift summary; Pt rested in bed throughout shift. she went back to surgery first thing this shift. Her abdomen was closed, aleksandra present. (not visualized as dressing covering). Fentanyl gtt decreased to 10mcg.hr and Propofol gtt stopped for weaning trail. Weaning trail successful Pt extubated 1330. She is now utilizing 2lpm/NC. She as repeatedly asked for ice or water for her dry mouth. Oral swabs and lanolin provided. Family assisting her with swabs this evening, then pt became nausea. Swabs on hold, informed family. Zofran admin. She has had 400 of brown, green drainage per LIS to her NG this shift. She came back from surgery with a right IJ CVl, it flushes and draws well. She has been moaning the past two hours. Notified of pain not being relived. Changed the interval o pain med. Admin Hypdromorphone. She is still moaning We assisted with position changing. Pt states it feels like it does when her bladder is full. ( this during shift report). NS to bladder scan per Ian. Her urine output was 300 ml this shift.. Dark michael noted. The previous two shifts she had out 350ml each shift.
[2025-05-10] VITALS (20 sets, daily range): BP systolic 116–167; BP diastolic 62–114; PULSE 77–96; RESP 15–30; TEMP 36.7–37; O2SAT 96–100
[2025-05-10] MEDS: piperacillin-tazobactam 3.375 GM in sodium chloride 0.9% (plus) 50 ML IV ×4 (00:09→23:57)
[2025-05-10] MEDS: heparin 5,000 unit/mL INJ 1 mL 5000 UNIT SUBCUT ×2 (01:55→10:44)
[2025-05-10] MEDS: HYDROmorphone 0.5 MG/0.5 ML INJ IVP ×3 (08:14→21:52)
[2025-05-10 09:40] LABS: Hematocrit 41.9 % (36-47); Hemoglobin 12.80 g/dL (11.27-16.99); Mean Corpuscular HGB Conc 30.5 g/dL (30-55); Mean Corpuscular Hemoglobin 27.2 pg (27-33); Mean Corpuscular Volume 89.0 fl (85-98); Nucleated Red Blood Cells % 0 %; Platelet Count 244 10^3/cmm (157-399); Red Blood Count 4.71 10^6/uL (3.85-5.65); White Blood Count 16.87 10^3/uL (3.29-11.43)
[2025-05-10 09:58] LABS: Anion Gap 12.8 (5-19); Blood Urea Nitrogen 17 mg/dL (6-20); Calcium 8.0 mg/dL (8.5-10.5); Carbon Dioxide 26 mmol/L (22-29); Chloride 106 mmol/L (98-107); Creatinine Clr Calc Pharmacy 215.3942; Glucose 129 mg/dL (65-115); Osmolality Calculated 295 mOsm/kg (285-295); Potassium 3.8 mmol/L (3.5-5.1); Sodium 141 mmol/L (136-145)
--- NOTE | 2025-05-10 12:40 | P.PN_ITS ---
Subjective 2 Subjective: Extubated NG tube output about 800 cc over 24 hours Abdomen benign Midline dressing in place Vitals/I&O/Wt Last Vital Signs Temp 98.1 F 05/10/25 12:30 Pulse 90 05/10/25 12:30 Resp 21 H 05/10/25 12:30 BP 124/96 05/10/25 12:30 Pulse Ox 98 05/10/25 12:30 O2 Del Method Nasal Cannula 05/10/25 12:30 O2 Flow Rate 2 05/10/25 12:30 FiO2 30 05/10/25 08:00 05/09/25 05/10/25 05/10/25 22:59 06:59 14:59 Intake Total 1053.267 / 2411.759 965 / 3376.759 1130 / 1130 Output Total 700 / 1380 650 / 2030 225 / 225 Balance 353.267 / 1031.759 315 / 1346.759 905 / 905 Weight last 48 hrs Weight 397 lb 0.587 oz Weight 390 lb 3.491 oz Weight 405 lb 10.409 oz Physical Exam 2 Narrative: Chest: Unlabored breathing room air. No lymphadenopathy. Heart: Regular rate and rhythm. Abdomen: Soft, nontender, nondistended. Urinary Catheter Management: Pacheco: Cath Placed During This Visit: yes Reason for Continuing Indwelling Catheter: Accurate Measurement of Urinary Output in Critically Ill Patients Urinary Catheter Date of Insertion: 05/08/25 Urinary Catheter Time of Insertion: 12:53 Data 05/10/25 09:25 05/10/25 09:25 Micro: Microbiology 05/08/25 10:04 Urine Culture - Final Urine,Clean Catch Escherichia coli A&P Assessment and plan 1. Strangulated hernia of abdominal wall: 2. Ischemia, bowel: Plan: 54-year-old female who presented with strangulated small bowel and a chronically incarcerated ventral hernia. Status post ex lap and reexploration. Small bowel resection and anastomosis. Today extubated. Clinically doing well. Keep NG tube to low continuous suction. Encourage out of bed. Okay to transfer to [facility]. Rest of care per hospitalist. PDMP PDMP Reviewed: Not Reviewed Attestations 2 Medical Necessity Statement*: Strangulated bowel Coding Level of Care Code 07988 Diagnoses Strangulated hernia of abdominal wall K43.6 Ischemia, bowel K55.9
--- NOTE | 2025-05-10 15:20 | PC.NURSE ---
Pt transferred to NPU . Her Belongings retrieved from locker and transported with her.
--- NOTE | 2025-05-10 15:48 | P.PN_ITS ---
Subjective 2 Subjective: Currently patient was seen, she is alert oriented x 3, following all commands, NG tube in place, currently n.p.o., on 2 L, normotensive, denies passing gas, reports generalized weakness, fatigue, reports a dry mouth, Vitals/I&O/Wt Last Vital Signs Temp 98.1 F 05/10/25 12:30 Pulse 90 05/10/25 12:30 Resp 21 H 05/10/25 12:30 BP 124/96 05/10/25 12:30 Pulse Ox 98 05/10/25 12:30 O2 Del Method Nasal Cannula 05/10/25 12:30 O2 Flow Rate 2 05/10/25 12:30 FiO2 30 05/10/25 08:00 05/10/25 05/10/25 05/10/25 06:59 14:59 22:59 Intake Total 965 / 3376.759 1180 / 1180 Output Total 650 / 2030 225 / 225 Balance 315 / 1346.759 955 / 955 Weight last 48 hrs Weight 180.093 kg Weight 177 kg Physical Exam 2 Const: COMMON NORMALS: no acute distress and patient oriented x3 Resp: COMMON NORMALS: normal respiratory effort, No retractions, No use of accessory muscles and clear to auscultation bilaterally AUSCULTATION: clear to auscultation bilaterally Cardio: COMMON NORMALS: regular rate, regular rhythm, S1 normal heart sound present and S2 normal heart sound present RATE: regular rate RHYTHM: r egular rhythm HEART SOUNDS: S1 normal heart sound present and S2 normal heart sound present GI: OTHER: Surgical site looks clean and dry, abdomen soft, nondistended, nontender, diminished bowel sounds, no guarding, no rebound, no rigidity Extremity: COMMON NORMALS: no pedal edema Neuro: COMMON NORMALS: patient oriented x3 Psych: COMMON NORMALS: mental status grossly normal Urinary Catheter Management: Pacheco: Cath Placed During This Visit: yes Reason for Continuing Indwelling Catheter: Accurate Measurement of Urinary Output in Critically Ill Patients Urinary Catheter Date of Insertion: 05/08/25 Urinary Catheter Time of Insertion: 12:53 Data 05/10/25 09:25 05/10/25 09:25 Micro: Microbiology 05/08/25 10:04 Urine Culture - Final Urine,Clean Catch Escherichia coli A&P Assessment and plan 1. Ischemia, bowel: 2. Strangulated hernia of abdominal wall: 3. Morbid obesity: Plan: 54 year old female presenting with ventral hernia with strangulation of small bowel. Ventral hernia with strangulation of small bowel -May 08 Ventral hernia with strangulated small bowel, 50 cm of ischemic bowel (2 separate segments of 30 and 20 cm in mid ileum) -May 09 status post opening of recent exploratory laparotomy, bowel resection, closure, 20 cm of necrotic mid ileum Plan - NG tube in place, low intermittent suction -N.p.o. -Continue IV Zosyn - keep NGT - analgesia: dilaudid 0.5 mg Q4H PRN after sedation is weaned. Acute hypoxia -S/p extubation 05/09/2025 - Currently on 2 L - Incentive spirometer, flutter valve, up out of bed - Will consider Lasix based on clinical progress hypothyroidism - resume IV levothyroxine Anxiety - Sertraline currently on hold Morbid obesity - BMI 67.6 - A1c 5.6, nondiabetic range. - SSI Diet: NPO PPx: per surgery Disposition - Moved to [facility] [place], PT OT, up out of bed, incentive spirometer, flutter valve, continue Zosyn PDMP PDMP Reviewed: Not Reviewed Attestations 2 Medical Necessity Statement*: Patient requires hospitalization for ventral hernia with strangulation Diagnoses Ischemia, bowel K55.9 Strangulated hernia of abdominal wall K43.6 Morbid obesity E66.01
--- NOTE | 2025-05-10 17:07 | PC.NURSE ---
Report called to [facility]. Report given to HARDY Padilla
--- NOTE | 2025-05-10 17:41 | PC.NURSE ---
Pt transferred to room 268 via bed. All belongings transferred with pt. Blood sugar done, NO insulin indicated.
[2025-05-11] VITALS (12 sets, daily range): BP systolic 106–164; BP diastolic 67–88; PULSE 82–100; RESP 14–21; TEMP 36.2–37.1; O2SAT 92–100
[2025-05-11] MEDS: HYDROmorphone 0.5 MG/0.5 ML INJ IVP ×4 (05:17→23:45)
[2025-05-11 05:42] LABS: Hematocrit 37.8 % (36-47); Hemoglobin 11.60 g/dL (11.27-16.99); Mean Corpuscular HGB Conc 30.7 g/dL (30-55); Mean Corpuscular Hemoglobin 27.6 pg (27-33); Mean Corpuscular Volume 90.0 fl (85-98); Nucleated Red Blood Cells % 0 %; Platelet Count 237 10^3/cmm (157-399); Red Blood Count 4.20 10^6/uL (3.85-5.65); White Blood Count 14.32 10^3/uL (3.29-11.43)
[2025-05-11 06:10] LABS: Alanine Aminotransferase 9 U/L (0-33); Albumin Level 2.9 g/dL (3.5-5.2); Alkaline Phosphatase 56 U/L (35-105); Anion Gap 11.7 (5-19); Aspartate Amino Transferase 9 U/L (0-32); Blood Urea Nitrogen 13 mg/dL (6-20); Calcium 8.1 mg/dL (8.5-10.5); Carbon Dioxide 29 mmol/L (22-29); Chloride 107 mmol/L (98-107); Creatinine Clr Calc Pharmacy 269.2427; Globulin 2.5 g/dL (1.3-4.6); Glucose 118 mg/dL (65-115); Magnesium 2.1 mg/dL (1.7-2.3); Osmolality Calculated 299 mOsm/kg (285-295); Potassium 3.7 mmol/L (3.5-5.1); Sodium 144 mmol/L (136-145); Total Protein 5.4 g/dL (6.6-8.7)
[2025-05-11] MEDS: piperacillin-tazobactam 3.375 GM in sodium chloride 0.9% (plus) 50 ML IV ×3 (08:17→23:48)
[2025-05-11] MEDS: potassium phosphate (mEq K) 40 MEQ in sodium chloride 0.9% (100 ml) 100 ML 27.25 MEQ IV (08:25)
--- NOTE | 2025-05-11 09:40 | P.PN_ITS ---
Subjective 2 Subjective: No acute events overnight Not passing gas NG about 800 cc Abdomen soft, benign, incision clean dry intact Patient feeling better Vitals/I&O/Wt Last Vital Signs Temp 97.7 F 05/11/25 07:57 Pulse 98 05/11/25 07:57 Resp 14 05/11/25 07:57 BP 164/78 05/11/25 07:57 Pulse Ox 95 05/11/25 07:57 O2 Del Method Nasal Cannula 05/11/25 07:57 O2 Flow Rate 3 05/11/25 07:56 FiO2 30 05/11/25 03:02 05/10/25 05/11/25 05/11/25 22:59 06:59 14:59 Intake Total 920 / 2100 81.25 / 2181.25 Output Total 925 / 1150 300 / 1450 Balance -5 / 950 -218.75 / 731.25 Weight last 48 hrs Weight 397 lb 0.587 oz Physical Exam 2 Narrative: Chest: Unlabored breathing room air. No lymphadenopathy. Heart: Regular rate and rhythm. Abdomen: Soft, nontender, nondistended. Midline dressing intact. Urinary Catheter Management: Pacheco: Cath Placed During This Visit: yes Reason for Continuing Indwelling Catheter: Accurate Measurement of Urinary Output in Critically Ill Patients Urinary Catheter Date of Insertion: 05/08/25 Urinary Catheter Time of Insertion: 12:53 Data 05/11/25 05:01 05/11/25 05:01 Micro: Microbiology 05/08/25 10:04 Urine Culture - Final Urine,Clean Catch Escherichia coli A&P Assessment and plan 1. Strangulated hernia of abdominal wall: Plan: 54-year-old female status post ex lap x 2 and small bowel resection with small bowel anastomosis for strangulated small bowel secondary to chronically incarcerated ventral hernia. Awaiting return of bowel function. Keep NG tube to low continuous suction until she starts passing gas. Encourage out of bed. Correct any electrolyte derangements. Remove Pacheco today. Appreciate hospitalist recommendation with regards to medical management. PDMP PDMP Reviewed: Not Reviewed Attestations 2 Medical Necessity Statement*: Ischemic bowel Coding Level of Care Code 17425 Diagnoses Strangulated hernia of abdominal wall K43.6
--- NOTE | 2025-05-11 11:02 | XR_ITS ---
WS: [id number] XR chest 1V portable [id number] REASON FOR EXAM: Post picc insertion FINDINGS: Left arm PICC line has been placed. The tip is in the mid SVC. Over the phone at 11:45 a.m. echocardiography technologist was instructed to inform the PICC line nurse to advance the catheter an additional [address] it within the distal SVC for optimal position and use. XR/XR chest 1V portable [id number] IMPRESSION: Left arm PICC line placement as above.
--- NOTE | 2025-05-11 11:40 | PICC.NOTE ---
Double lumen PICC placed to left basilic vein. Referred to vascular access nurse for PICC placement due to provider request and poor access. Pt currently has right IJ central line that provider would like removed. Risks and benefits discussed and informed consent obtained from pt. Left arm assessed with left basilic vein measuring 3.7 mm, straight, and apparent best choice for placement. Using sterile technique and MST, left basilic vein accessed x 1 stick. Mid-arm circumference measured 10 cm from left AC 48 cm. Trimmed cath 50 cm with 0 cm external length noted. CXR shows tip in mid SVC. Radiologist recommended advancing [address] tip in distal SVC. Catheter advanced 2 cm, which should place tip in good position for use per radiologist. Line secured with stat-lock. Insertion site covered with Biopatch and TSM. Report given to bedside nurse, HARDY Jane.
--- NOTE | 2025-05-11 15:39 | PM.PN ---
Subjective Subjective: Patient is alert oriented to x 3, following all commands, denies any fevers, chills, no cough, no abdominal pain, she has not had a bowel movement, she does think that she had an episode of passing gas overnight Vitals/I&O/Wt Last Vital Signs Temp 97.8 F 05/11/25 13:11 Pulse 82 05/11/25 13:11 Resp 18 05/11/25 13:11 BP 106/67 05/11/25 13:11 Pulse Ox 93 05/11/25 13:11 O2 Del Method Nasal Cannula 05/11/25 13:11 O2 Flow Rate 3 05/11/25 07:56 FiO2 30 05/11/25 03:02 05/11/25 05/11/25 05/11/25 06:59 14:59 22:59 Intake Total 81.25 / 2181.25 765 / 765 Output Total 300 / 1450 Balance -218.75 / 731.25 765 / 765 Weight last 48 hrs Weight 180.093 kg Physical Exam Const: COMMON NORMALS: no acute distress and patient oriented x3 Neck/C-Spine: OTHER: Right neck central line in place Resp: COMMON NORMALS: normal respiratory effort, No retractions, No use of accessory muscles and clear to auscultation bilaterally AUSCULTATION: clear to auscultation bilaterally Cardio: COMMON NORMALS: regular rate, regular rhythm, S1 normal heart sound present and S2 normal heart sound present RATE: regular rate RHYTHM: regular rhythm HEART SOUNDS: S1 normal heart sound present and S2 normal heart sound present GI: OTHER: Abdomen soft, nondistended, nontender, diminished bowel sounds, surgical site looks clean and dry Extremity: COMMON NORMALS: no pedal edema Neuro: COMMON NORMALS: patient oriented x3 Psych: COMMON NORMALS: mental status grossly normal Urinary Catheter Management: Pacheco: Cath Placed During This Visit: yes Reason for Continuing Indwelling Catheter: Accurate Measurement of Urinary Output in Critically Ill Patients Urinary Catheter Date of Insertion: 05/08/25 Urinary Catheter Time of Insertion: 12:53 Data 05/11/25 05:01 05/11/25 05:01 A&P Assessment and plan 1. Ischemia, bowel: 2. Strangulated hernia of abdominal wall: 3. Morbid obesity: Plan: 54 year old female presenting with ventral hernia with strangulation of small bowel. Ventral hernia with strangulation of small bowel -May 08 Ventral hernia with strangulated small bowel, 50 cm of ischemic bowel (2 separate segments of 30 and 20 cm in mid ileum) -May 09 status post opening of recent exploratory laparotomy, bowel resection, closure, 20 cm of necrotic mid ileum Plan - NG tube in place, low intermittent suction -N.p.o. -Continue IV Zosyn - keep NGT - analgesia: dilaudid 0.5 mg Q4H PRN after sedation is weaned. Acute hypoxia -S/p extubation 05/09/2025 - Currently on 2 L - Incentive spirometer, flutter valve, up out of bed - Will consider Lasix based on clinical progress hypothyroidism - resume IV levothyroxine Anxiety - Sertraline currently on hold Morbid obesity - BMI 67.6 - A1c 5.6, nondiabetic range. - SSI Diet: NPO PPx: per surgery Lovenox for DVT prophylaxis Disposition - Moved to [facility], PT OT, up out of bed, incentive spirometer, flutter valve, continue Zosyn, remove Pacheco catheter, remove central line, PDMP PDMP Reviewed: Not Reviewed Attestations Medical Necessity Statement*: Patient requires hospitalization for ventral hernia with strangulation of small bowel Diagnoses Ischemia, bowel K55.9 Strangulated hernia of abdominal wall K43.6 Morbid obesity E66.01
[2025-05-12] VITALS (15 sets, daily range): BP systolic 137–173; BP diastolic 71–98; PULSE 80–101; RESP 16–20; TEMP 36.7–37.1; O2SAT 92–97
[2025-05-12] MEDS: HYDROmorphone 0.5 MG/0.5 ML INJ IVP ×2 (02:27→08:44)
[2025-05-12] MEDS: ondansetron 2 mg/ML SDV 2 mL 4 MG IVP (02:35)
[2025-05-12 04:54] LABS: Hematocrit 40.9 % (36-47); Hemoglobin 12.60 g/dL (11.27-16.99); Mean Corpuscular HGB Conc 30.8 g/dL (30-55); Mean Corpuscular Hemoglobin 27.8 pg (27-33); Mean Corpuscular Volume 90.3 fl (85-98); Nucleated Red Blood Cells % 0 %; Platelet Count 291 10^3/cmm (157-399); Red Blood Count 4.53 10^6/uL (3.85-5.65); White Blood Count 15.31 10^3/uL (3.29-11.43)
[2025-05-12 05:26] LABS: Alanine Aminotransferase 11 U/L (0-33); Albumin Level 3.2 g/dL (3.5-5.2); Alkaline Phosphatase 73 U/L (35-105); Anion Gap 14.2 (5-19); Aspartate Amino Transferase 11 U/L (0-32); Blood Urea Nitrogen 15 mg/dL (6-20); Calcium 8.7 mg/dL (8.5-10.5); Carbon Dioxide 29 mmol/L (22-29); Chloride 106 mmol/L (98-107); Creatinine Clr Calc Pharmacy 269.2427; Globulin 3.0 g/dL (1.3-4.6); Glucose 115 mg/dL (65-115); Magnesium 2.3 mg/dL (1.7-2.3); Osmolality Calculated 302 mOsm/kg (285-295); Potassium 4.2 mmol/L (3.5-5.1); Sodium 145 mmol/L (136-145); Total Protein 6.2 g/dL (6.6-8.7)
[2025-05-12] MEDS: D5-NS 0.45% + KCL 20 mEq 20 MEQ/1,000 ML BAG 100 MEQ IV ×2 (06:03→15:49)
--- NOTE | 2025-05-12 06:51 | PC.NURSE ---
Dr. Pizarro came to the floor at 0600, clamped pt's NG tube, let nurse know to not unclamp and to tell next shift to not unclamp.
--- NOTE | 2025-05-12 06:54 | P.PN_ITS ---
Subjective 2 Subjective: This is a 54-year-old female who is admitted to the hospital for strangulated ventral hernia, this was repaired by my colleague Dr. Pemberton and she had a small bowel resection during the procedure. I will be taking over her care as Dr. Pemberton will be out of town. Patient is doing well overnight, has been passing gas, NG output is a mix of bile with significant amount of water that the patient has been ingesting. No significant abdominal pain. Vitals/I&O/Wt Last Vital Signs Temp 98.0 F 05/12/25 04:00 Pulse 101 H 05/12/25 04:00 Resp 17 05/12/25 04:00 BP 144/86 05/12/25 04:00 Pulse Ox 94 05/12/25 04:00 O2 Del Method Nasal Cannula 05/11/25 15:40 O2 Flow Rate 3 05/11/25 07:56 FiO2 30 05/12/25 00:15 05/11/25 05/11/25 05/12/25 14:59 22:59 06:59 Intake Total 765 / 380 362.3825 / 1190.7579 732.5 / 1923.2579 Output Total 650 / 650 400 / 1050 Balance 765 / 765 -224.2421 / 540.7579 332.5 / 873.2579 Weight last 48 hrs Weight 399 lb 8 oz Physical Exam 2 Narrative: Patient is obese, in slight respiratory distress at baseline due to body habitus. Abdominal exam is benign abdomen soft appropriately tender to palpation surgical incision is covered with dressing Urinary Catheter Management: Pacheco: Cath Placed During This Visit: yes Reason for Continuing Indwelling Catheter: Required Immobilization for Trauma or Surgery or Anesthesia Urinary Catheter Date of Insertion: 05/08/25 Urinary Catheter Time of Insertion: 12:53 Data 05/12/25 04:13 05/12/25 04:13 A&P Assessment and plan 1. Morbid obesity: 2. Strangulated hernia of abdominal wall: 3. Ischemia, bowel: Plan: Today is postoperative day 3 status post bowel resection anastomosis and abdominal wall closure. Patient is doing okay, she is slightly tachycardic and her white count has slightly increased but clinically she is doing better. She is passing gas NG output appears to be mostly what she has been drinking rather than actual intestinal content. We will proceed to clamp the NG tube for the morning I will check a residual around noon and if still is low well we will proceed to advance the diet. She does not have any significant abdominal pain. Will continue with ambulation and respiratory and physical therapy evaluations will be requested. I appreciate medical management and evaluation of the patient. Anticipated length of stay will be 2-3 more days PDMP PDMP Reviewed: Not Reviewed Attestations 2 Medical Necessity Statement*: Patient will require about 48 to 72 hours for postoperative management after bowel resection and repair of a strangulated hernia Coding Level of Care Code Acute Code for Chg Fwd Diagnoses Morbid obesity E66.01 Strangulated hernia of abdominal wall K43.6 Ischemia, bowel K55.9
[2025-05-12] MEDS: piperacillin-tazobactam 3.375 GM in sodium chloride 0.9% (plus) 50 ML IV ×3 (08:42→23:20)
--- NOTE | 2025-05-12 15:13 | PM.MISC ---
Miscellaneous Note Purpose of Documentation: Update on patient care Note: Has been doing okay, residual over 8 hours in the stoma has been only 50 cc and patient has been passing gas. Has not ambulated today because she was sleepy due to Dilaudid. We will change pain medication, NG tube was removed she will be allowed to have clears will transition to p.o. pain meds. Pacheco catheter can be removed once patient starts moving.
--- NOTE | 2025-05-12 15:13 | PM.PN ---
Subjective Subjective: Patient was seen this morning, currently alert oriented x 3, following all commands, she reports passing gas from below, has not had a bowel movement Vitals/I&O/Wt Last Vital Signs Temp 98.5 F 05/12/25 11:58 Pulse 87 05/12/25 14:36 Resp 19 H 05/12/25 11:58 BP 173/80 05/12/25 11:58 Pulse Ox 96 05/12/25 12:00 O2 Del Method Nasal Cannula 05/12/25 11:58 O2 Flow Rate 1 05/12/25 09:06 FiO2 30 05/12/25 12:00 05/12/25 05/12/25 05/12/25 06:59 14:59 22:59 Intake Total 732.5 / 1923.2579 50 / 50 Output Total 400 / 1050 800 / 800 Balance 332.5 / 873.2579 -750 / -750 Weight last 48 hrs Weight 181.21 kg Physical Exam Const: COMMON NORMALS: no acute distress and patient oriented x3 Resp: COMMON NORMALS: normal respiratory effort, No retractions, No use of accessory muscles and clear to auscultation bilaterally AUSCULTATION: clear to auscultation bilaterally Cardio: COMMON NORMALS: regular rate, regular rhythm, S1 normal heart sound present and S2 normal heart sound present RATE: regular rate RHYTHM: regular rhythm HEART SOUNDS: S1 normal heart sound present and S2 normal heart sound present GI: COMMON NORMALS: Normal to inspection, nondistended, normoactive bowel sounds present and non-tender Extremity: COMMON NORMALS: no pedal edema Neuro: COMMON NORMALS: patient oriented x3 Psych: COMMON NORMALS: mental status grossly normal Urinary Catheter Management: Pacheco: Cath Placed During This Visit: yes Reason for Continuing Indwelling Catheter: Required Immobilization for Trauma or Surgery or Anesthesia Urinary Catheter Date of Insertion: 05/08/25 Urinary Catheter Time of Insertion: 12:53 Data 05/12/25 04:13 05/12/25 04:13 A&P Assessment and plan 1. Ischemia, bowel: 2. Strangulated hernia of abdominal wall: 3. Morbid obesity: Plan: 54 year old female presenting with ventral hernia with strangulation of small bowel. Ventral hernia with strangulation of small bowel -May 08 Ventral hernia with strangulated small bowel, 50 cm of ischemic bowel (2 separate segments of 30 and 20 cm in mid ileum) -May 09 status post opening of recent exploratory laparotomy, bowel resection, closure, 20 cm of necrotic mid ileum Plan - NG tube in place, currently clamped -N.p.o. -Continue IV Zosyn - keep NGT - analgesia: dilaudid 0.5 mg Q4H PRN after sedation is weaned. Acute hypoxia -S/p extubation 05/09/2025 - Currently on 2 L - Incentive spirometer, flutter valve, up out of bed - Will consider Lasix based on clinical progress hypothyroidism - resume IV levothyroxine Anxiety - Sertraline currently on hold Morbid obesity - BMI 67.6 - A1c 5.6, nondiabetic range. - SSI Diet: NPO PPx: per surgery Lovenox for DVT prophylaxis Disposition - Moved to [facility], PT OT, up out of bed, incentive spirometer, flutter valve, continue Zosyn, monitor urine output, has a PICC line in place PDMP PDMP Reviewed: Not Reviewed Attestations Medical Necessity Statement*: Patient requires hospitalization ventral hernia with strangulation of small bowel Diagnoses Ischemia, bowel K55.9 Strangulated hernia of abdominal wall K43.6 Morbid obesity E66.01
[2025-05-12] MEDS: oxyCODONE 5 mg IR Tab/Cap PO ×2 (16:14→22:10)
[2025-05-13] VITALS (10 sets, daily range): BP systolic 146–184; BP diastolic 63–93; PULSE 81–90; RESP 16–18; TEMP 36.8–37; O2SAT 94–98
[2025-05-13] MEDS: D5-NS 0.45% + KCL 20 mEq 20 MEQ/1,000 ML BAG 100 MEQ IV (01:52)
[2025-05-13 05:37] LABS: Hematocrit 40.3 % (36-47); Hemoglobin 12.00 g/dL (11.27-16.99); Mean Corpuscular HGB Conc 29.8 g/dL (30-55); Mean Corpuscular Hemoglobin 26.7 pg (27-33); Mean Corpuscular Volume 89.6 fl (85-98); Nucleated Red Blood Cells % 0 %; Platelet Count 306 10^3/cmm (157-399); Red Blood Count 4.50 10^6/uL (3.85-5.65); White Blood Count 14.35 10^3/uL (3.29-11.43)
[2025-05-13 05:59] LABS: Alanine Aminotransferase 10 U/L (0-33); Albumin Level 3.1 g/dL (3.5-5.2); Alkaline Phosphatase 61 U/L (35-105); Aspartate Amino Transferase 11 U/L (0-32); Blood Urea Nitrogen 13 mg/dL (6-20); Calcium 8.7 mg/dL (8.5-10.5); Carbon Dioxide 30 mmol/L (22-29); Chloride 105 mmol/L (98-107); Creatinine Clr Calc Pharmacy 360.5199; Globulin 3.0 g/dL (1.3-4.6); Glucose 139 mg/dL (65-115); Magnesium 2.2 mg/dL (1.7-2.3); Osmolality Calculated 300 mOsm/kg (285-295); Sodium 144 mmol/L (136-145); Total Protein 6.1 g/dL (6.6-8.7)
[2025-05-13 06:07] LABS: Anion Gap 13.1 (5-19); Potassium 4.1 mmol/L (3.5-5.1)
--- NOTE | 2025-05-13 07:28 | P.PN_ITS ---
Subjective 2 Subjective: Good progression over the last 24 hours, tolerating clear liquid diet and passing gas, no bowel movement yet. Has ambulated Pacheco catheter was removed. Less somnolent now that we transition to p.o. pain medication. Vitals/I&O/Wt Last Vital Signs Temp 98.4 F 05/13/25 04:00 Pulse 87 05/13/25 06:00 Resp 17 05/13/25 04:00 BP 146/92 05/13/25 04:00 Pulse Ox 96 05/13/25 04:00 O2 Del Method Nasal Cannula 05/13/25 04:00 O2 Flow Rate 1 05/13/25 04:00 FiO2 30 05/12/25 12:00 05/12/25 05/13/25 05/13/25 22:59 06:59 14:59 Intake Total 1026.667 / 0825.268 3940 / 2126.667 Output Total 600 / 1400 Balance 426.667 / -840.883 4994 / 726.667 Weight last 48 hrs Weight 401 lb 9.6 oz Weight 399 lb 8 oz Physical Exam 2 Narrative: Benign abdominal exam abdomen is tender in the mid abdomen the area of the incision which expected. Urinary Catheter Management: Pacheco: Cath Placed During This Visit: yes, but has since been removed by the nurse Reason for Continuing Indwelling Catheter: Decision to DC Catheter Urinary Catheter Date of Insertion: 05/08/25 Urinary Catheter Time of Insertion: 12:53 Date Urinary Catheter Removed: 05/12/25 Time Urinary Catheter Discontinued: 16:52 Data 05/13/25 04:26 05/13/25 04:26 A&P Assessment and plan 1. Morbid obesity: 2. Strangulated hernia of abdominal wall: 3. Ischemia, bowel: Plan: Patient showing good progression, white count is stable around 14. No significant abdominal pain tolerating clear liquids. Will advance to full liquid diet, we will stop IV fluids. Will encourage ambulation plan will be to advance to a GI soft diet tomorrow if patient is tolerating she might be able to be discharged either tomorrow or the day after PDMP PDMP Reviewed: Not Reviewed Attestations 2 Medical Necessity Statement*: Additional 24 to 48 hours of hospital stay are needed for advancement of diet and continuous monitoring. Coding Level of Care Code Acute Code for Chg Fwd Diagnoses Morbid obesity E66.01 Strangulated hernia of abdominal wall K43.6 Ischemia, bowel K55.9
[2025-05-13] MEDS: piperacillin-tazobactam 3.375 GM in sodium chloride 0.9% (plus) 50 ML IV ×3 (08:51→23:15)
[2025-05-13] MEDS: polyethylene glycol 3350 Pkt 17 gm PO (09:01)
[2025-05-13] MEDS: FUROsemide 10 mg/mL SDV 4mL 40 MG IVP (13:15)
--- NOTE | 2025-05-13 16:12 | P.PN_ITS ---
Subjective 2 Subjective: Patient was seen this morning, she is alert oriented x 3, following commands, she is passing gas, low, no abdominal pain Vitals/I&O/Wt Last Vital Signs Temp 98.3 F 05/13/25 15:38 Pulse 90 05/13/25 15:38 Resp 18 05/13/25 15:38 BP 164/84 05/13/25 15:38 Pulse Ox 97 05/13/25 15:38 O2 Del Method Nasal Cannula 05/13/25 15:38 O2 Flow Rate 1 05/13/25 08:40 FiO2 30 05/12/25 12:00 05/13/25 05/13/25 05/13/25 06:59 14:59 22:59 Intake Total 1050 / 2126.667 650 / 650 Balance 1050 / 726.667 650 / 650 Weight last 48 hrs Weight 182.163 kg Weight 181.21 kg Physical Exam 2 Const: COMMON NORMALS: no acute distress and patient oriented x3 Resp: COMMON NORMALS: normal respiratory effort, No retractions, No use of accessory muscles and clear to auscultation bilaterally AUSCULTATION: clear to auscultation bilaterally Cardio: COMMON NORMALS: regular rate, regular rhythm, S1 normal heart sound present and S2 normal heart sound present RATE: regular rate RHYTHM: r egular rhythm HEART SOUNDS: S1 normal heart sound present and S2 normal heart sound present GI: COMMON NORMALS: Normal to inspection, nondistended, normoactive bowel sounds present and non-tender OTHER: Surgical site looks clean and dry Extremity: COMMON NORMALS: no pedal edema Neuro: COMMON NORMALS: patient oriented x3 Psych: COMMON NORMALS: mental status grossly normal Urinary Catheter Management: Pacheco: Cath Placed During This Visit: yes, but has since been removed by the nurse Reason for Continuing Indwelling Catheter: Decision to DC Catheter Urinary Catheter Date of Insertion: 05/08/25 Urinary Catheter Time of Insertion: 12:53 Date Urinary Catheter Removed: 05/12/25 Time Urinary Catheter Discontinued: 16:52 Data 05/13/25 04:26 05/13/25 04:26 A&P Assessment and plan 1. Ischemia, bowel: 2. Strangulated hernia of abdominal wall: 3. Morbid obesity: Plan: 54 year old female presenting with ventral hernia with strangulation of small bowel. Ventral hernia with strangulation of small bowel -May 08 Ventral hernia with strangulated small bowel, 50 cm of ischemic bowel (2 separate segments of 30 and 20 cm in mid ileum) -May 09 status post opening of recent exploratory laparotomy, bowel resection, closure, 20 cm of necrotic mid ileum Plan - NG tube removed - On clear liquids -Continue IV Zosyn - analgesia: dilaudid 0.5 mg Q4H PRN after sedation is weaned. Acute hypoxia -S/p extubation 05/09/2025 - Currently on 2 L - Incentive spirometer, flutter valve, up out of bed - Will consider Lasix based on clinical progress hypothyroidism - resume levothyroxine Anxiety - Sertraline Morbid obesity - BMI 67.6 - A1c 5.6, nondiabetic range. - SSI Diet: NPO PPx: per surgery Lovenox for DVT prophylaxis Disposition - Moved to [facility], PT OT, up out of bed, incentive spirometer, flutter valve, continue Zosyn, monitor urine output, has a PICC line in place PDMP PDMP Reviewed: Not Reviewed Attestations 2 Medical Necessity Statement*: Patient requires hospitalization for ventral hernia, strangulation Diagnoses Ischemia, bowel K55.9 Strangulated hernia of abdominal wall K43.6 Morbid obesity E66.01
[2025-05-14] VITALS (11 sets, daily range): BP systolic 146–184; BP diastolic 76–97; PULSE 79–85; RESP 16–18; TEMP 36.6–36.9; O2SAT 92–98
[2025-05-14 05:09] LABS: Hematocrit 40.9 % (36-47); Hemoglobin 12.50 g/dL (11.27-16.99); Mean Corpuscular HGB Conc 30.6 g/dL (30-55); Mean Corpuscular Hemoglobin 27.1 pg (27-33); Mean Corpuscular Volume 88.5 fl (85-98); Nucleated Red Blood Cells % 0 %; Platelet Count 211 10^3/cmm (157-399); Red Blood Count 4.62 10^6/uL (3.85-5.65); White Blood Count 13.19 10^3/uL (3.29-11.43)
[2025-05-14] MEDS: polyethylene glycol 3350 Pkt 17 gm PO (05:28)
[2025-05-14 05:36] LABS: Alanine Aminotransferase 11 U/L (0-33); Albumin Level 2.7 g/dL (3.5-5.2); Alkaline Phosphatase 56 U/L (35-105); Blood Urea Nitrogen 10 mg/dL (6-20); Calcium 8.8 mg/dL (8.5-10.5); Carbon Dioxide 30 mmol/L (22-29); Chloride 100 mmol/L (98-107); Creatinine Clr Calc Pharmacy 361.8250; Globulin 3.0 g/dL (1.3-4.6); Glucose 114 mg/dL (65-115); Magnesium 1.9 mg/dL (1.7-2.3); Osmolality Calculated 292 mOsm/kg (285-295); Sodium 141 mmol/L (136-145); Total Protein 5.7 g/dL (6.6-8.7)
[2025-05-14 05:43] LABS: Anion Gap 14.7 (5-19); Aspartate Amino Transferase 12 U/L (0-32); Potassium 3.7 mmol/L (3.5-5.1)
[2025-05-14 05:51] LABS: Slide Review Slide Review Perform
[2025-05-14] MEDS: potassium phosphate (mMol PO4) 30 MMOL in sodium chloride 0.9% (100 ml) 100 ML 25 MMOL IV (07:49)
--- NOTE | 2025-05-14 08:47 | P.PN_ITS ---
Subjective 2 Subjective: Excellent progression over the last 24 hours. Minimal abdominal pain, had a bowel movement this morning. Tolerating diet. White count trending down. Vitals/I&O/Wt Last Vital Signs Temp 98.1 F 05/14/25 07:42 Pulse 83 05/14/25 08:08 Resp 18 05/14/25 08:08 BP 162/76 05/14/25 07:42 Pulse Ox 93 05/14/25 08:08 O2 Del Method Room Air 05/14/25 08:08 O2 Flow Rate 1 05/14/25 04:00 FiO2 30 05/12/25 12:00 05/13/25 05/14/25 05/14/25 22:59 06:59 14:59 Intake Total 170 / 820 50 / 50 Output Total 300 / 300 Balance 170 / 820 -300 / 520 50 / 50 Weight last 48 hrs Weight 401 lb 9.6 oz Physical Exam 2 GI: OTHER: Benign abdominal exam surgical incision covered with dressing Urinary Catheter Management: Pacheco: Cath Placed During This Visit: yes, but has since been removed by the nurse Reason for Continuing Indwelling Catheter: Decision to DC Catheter Urinary Catheter Date of Insertion: 05/08/25 Urinary Catheter Time of Insertion: 12:53 Date Urinary Catheter Removed: 05/12/25 Time Urinary Catheter Discontinued: 16:52 Data 05/14/25 04:30 05/14/25 04:30 A&P Assessment and plan 1. Strangulated hernia of abdominal wall: Plan: Patient showing excellent progression, will continue to advance her to a GI soft diet today we will have her ambulate continue antibiotics while she is in house and the plan will be for discharge home in the next 24 hours. She shows understanding agrees with the plan. All her vitals are stable, her white count has trended down to 13. PDMP PDMP Reviewed: Not Reviewed Attestations 2 Medical Necessity Statement*: Possible discharge tomorrow Coding Level of Care Code Acute Code for Chg Fwd Diagnoses Strangulated hernia of abdominal wall K43.6
[2025-05-14] MEDS: oxyCODONE 5 mg IR Tab/Cap PO ×3 (08:51→22:33)
[2025-05-14] MEDS: piperacillin-tazobactam 3.375 GM in sodium chloride 0.9% (plus) 50 ML IV ×2 (08:52→15:36)
--- NOTE | 2025-05-14 17:07 | PM.PN ---
Subjective Subjective: Patient was seen this morning, she had a bowel movement, denies any fevers, chills, no cough, passing gas, abdominal pain improving, she is tolerating regular diet Vitals/I&O/Wt Last Vital Signs Temp 98.4 F 05/14/25 16:00 Pulse 81 05/14/25 16:00 Resp 18 05/14/25 16:00 BP 146/82 05/14/25 16:00 Pulse Ox 92 05/14/25 16:00 O2 Del Method Room Air 05/14/25 16:00 O2 Flow Rate 1 05/14/25 04:00 FiO2 30 05/12/25 12:00 05/14/25 05/14/25 05/14/25 06:59 14:59 22:59 Intake Total 930 / 930 Output Total 300 / 300 250 / 250 Balance -300 / 520 680 / 680 Weight last 48 hrs Weight 182.163 kg Physical Exam Const: COMMON NORMALS: no acute distress and patient oriented x3 Resp: COMMON NORMALS: normal respiratory effort, No retractions, No use of accessory muscles and clear to auscultation bilaterally AUSCULTATION: clear to auscultation bilaterally Cardio: COMMON NORMALS: regular rate, regular rhythm, S1 normal heart sound present and S2 normal heart sound present RATE: regular rate RHYTHM: regular rhythm HEART SOUNDS: S1 normal heart sound present and S2 normal heart sound present GI: COMMON NORMALS: Normal to inspection, nondistended, normoactive bowel sounds present and non-tender OTHER: Surgical site looks clean and dry Extremity: COMMON NORMALS: no calf tenderness and no pedal edema Neuro: COMMON NORMALS: patient oriented x3 Psych: COMMON NORMALS: mental status grossly normal Urinary Catheter Management: Pacheco: Cath Placed During This Visit: yes, but has since been removed by the nurse Reason for Continuing Indwelling Catheter: Decision to DC Catheter Urinary Catheter Date of Insertion: 05/08/25 Urinary Catheter Time of Insertion: 12:53 Date Urinary Catheter Removed: 05/12/25 Time Urinary Catheter Discontinued: 16:52 Data 05/14/25 04:30 05/14/25 04:30 A&P Assessment and plan 1. Ischemia, bowel: 2. Strangulated hernia of abdominal wall: 3. Morbid obesity: Plan: 54 year old female presenting with ventral hernia with strangulation of small bowel. Ventral hernia with strangulation of small bowel -May 08 Ventral hernia with strangulated small bowel, 50 cm of ischemic bowel (2 separate segments of 30 and 20 cm in mid ileum) -May 09 status post opening of recent exploratory laparotomy, bowel resection, closure, 20 cm of necrotic mid ileum Plan - NG tube removed - On regular diet -Continue IV Zosyn - On p.o. pain control Acute hypoxia -S/p extubation 05/09/2025 - Currently on room air - Incentive spirometer, flutter valve, up out of bed - Will consider Lasix based on clinical progress hypothyroidism - resume levothyroxine Anxiety - Sertraline Morbid obesity - BMI 67.6 - A1c 5.6, nondiabetic range. - SSI Diet: NPO PPx: per surgery Lovenox for DVT prophylaxis Disposition - Moved to [facility], PT OT, up out of bed, incentive spirometer, flutter valve, continue Zosyn, monitor urine output, has a PICC line in place PDMP PDMP Reviewed: Not Reviewed Attestations Medical Necessity Statement*: Patient requires hospitalization for ventral hernia with strangulation, acute hypoxia Diagnoses Ischemia, bowel K55.9 Strangulated hernia of abdominal wall K43.6 Morbid obesity E66.01
[2025-05-15 00:10] VITALS: BP 166/102; PULSE 79; TEMP 36.9; O2SAT 94
[2025-05-15] MEDS: piperacillin-tazobactam 3.375 GM in sodium chloride 0.9% (plus) 50 ML IV ×2 (00:18→08:32)
[2025-05-15 04:00] VITALS: BP 151/82; PULSE 80; RESP 17; TEMP 36.4; O2SAT 96
[2025-05-15 05:02] VITALS: RESP 17
[2025-05-15] MEDS: oxyCODONE 5 mg IR Tab/Cap PO (05:02)
[2025-05-15 06:08] LABS: Hematocrit 43.3 % (36-47); Hemoglobin 13.60 g/dL (11.27-16.99); Mean Corpuscular HGB Conc 31.4 g/dL (30-55); Mean Corpuscular Hemoglobin 27.0 pg (27-33); Mean Corpuscular Volume 85.9 fl (85-98); Nucleated Red Blood Cells % 0.2 %; Platelet Count 334 10^3/cmm (157-399); Red Blood Count 5.04 10^6/uL (3.85-5.65); White Blood Count 13.06 10^3/uL (3.29-11.43)
[2025-05-15 06:32] LABS: Alanine Aminotransferase 14 U/L (0-33); Albumin Level 3.6 g/dL (3.5-5.2); Alkaline Phosphatase 68 U/L (35-105); Anion Gap 15.2 (5-19); Aspartate Amino Transferase 13 U/L (0-32); Blood Urea Nitrogen 12 mg/dL (6-20); Calcium 9.6 mg/dL (8.5-10.5); Carbon Dioxide 32 mmol/L (22-29); Chloride 96 mmol/L (98-107); Creatinine Clr Calc Pharmacy 217.0950; Globulin 3.4 g/dL (1.3-4.6); Glucose 121 mg/dL (65-115); Magnesium 1.9 mg/dL (1.7-2.3); Osmolality Calculated 291 mOsm/kg (285-295); Potassium 3.2 mmol/L (3.5-5.1); Sodium 140 mmol/L (136-145); Total Protein 7.0 g/dL (6.6-8.7)
[2025-05-15 07:27] VITALS: BP 181/99; PULSE 76; RESP 16; TEMP 36.7; O2SAT 97
[2025-05-15 07:39] VITALS: PULSE 78; RESP 16; O2SAT 95
--- NOTE | 2025-05-15 08:30 | PM.DCS ---
Discharge Providers Date of Admission: 05/08/25 13:51 Date of Discharge: May 15, 2025 Attending Provider at Admission: Duran Pemberton MD Attending Provider at Discharge: Duran Pemberton MD Primary Care Provider: ANA MARIA Spear Diagnoses at Discharge Discharge Diagnosis 1. Ischemia, bowel: 2. Strangulated hernia of abdominal wall: 3. Morbid obesity: Reason for Visit Reason for Visit: ABD PAIN Hospital Course Hospital Course This is a 54-year-old female who presented to the hospital with a strangulated ventral hernia, she underwent an exploratory laparotomy by my colleague Dr. Pemberton, was With the open abdomen and in a return trip to the OR she underwent bowel resection and primary closure of the ventral hernia. She has had a good postoperative progression, is tolerating diet having bowel movements no significant abdominal pain. White count has remained stable around 13, vital signs are completely unremarkable. Patient will be allowed to transition to the outpatient setting and will follow-up in the clinic with Dr. Pemberton in 1 week. Physical Exam GI: OTHER: Abdominal exam is benign the abdomen is soft is appropriately tender surgical incision appears to be healing well aleksandra are in place Urinary Catheter Management: Pacheco: Cath Placed During This Visit: yes, but has since been removed by the nurse Reason for Continuing Indwelling Catheter: Decision to DC Catheter Urinary Catheter Date of Insertion: 05/08/25 Urinary Catheter Time of Insertion: 12:53 Date Urinary Catheter Removed: 05/12/25 Time Urinary Catheter Discontinued: 16:52 Discharge Data Studies Completed and Pending Completed Studies During Hospitalization Category Date Time Status CT abdomen pelvis wo con [id number] Stat Cat Scan 05/08/25 08:44 Completed CXRP [XR chest 1V portable [id number]] Routine Exams 05/09/25 10:01 Completed CXRP [XR chest 1V portable [id number]] Routine Exams 05/11/25 11:02 Completed XR chest 1V portable [id number] Stat Exams 05/08/25 08:45 Completed XR chest 1V portable [id number] Stat Exams 05/08/25 17:28 Completed Pathology: Surgical [PTH] Routine Pth 05/08/25 14:19 Completed Pathology: Surgical [PTH] Routine Pth 05/09/25 09:35 Completed Pending at discharge Category Date Time Status Complete Blood Count w/Auto AM LABS Lab 05/16/25 04:00 Ordered Comprehensive Metabolic Panel AM LABS Lab 05/16/25 04:00 Ordered Magnesium AM LABS Lab 05/16/25 04:00 Ordered Phosphorus AM LABS Lab 05/16/25 04:00 Ordered Radiology Impressions Abdomen/Pelvis CT 05/08/25 08:44 IMPRESSION: 1. Anterior abdominal wall hernia defect with small bowel loops extending through the hernia defect as described above. Findings are suspicious for the possibility of strangulation with partial small bowel obstruction. Recommend clinical correlation. ADDENDUM: 05/08/25 [id number] COMMENT: THIS REPORT CONTAINS FINDINGS THAT MAY BE CRITICAL TO PATIENT CARE. The exam findings were verbally communicated by me to ITZ GONSALEZ via telephone conference at 10:43 AM CDT on 05/08/2025. The findings were acknowledged and understood. Chest X-Ray 05/11/25 11:02 IMPRESSION: Left arm PICC line placement as above. Laboratory Results WBC 13.06 10^3/uL (3.29-11.43) H 05/15/25 05:37 RBC 5.04 10^6/uL (3.85-5.65) 05/15/25 05:37 Hgb 13.60 g/dL (11.27-16.99) 05/15/25 05:37 Hct 43.3 % (36-47) 05/15/25 05:37 MCV 85.9 fl (85-98) 05/15/25 05:37 MCH 27.0 pg (27-33) 05/15/25 05:37 MCHC 31.4 g/dL (30-55) 05/15/25 05:37 RDW 15.5 % (12.1-15.1) H 05/15/25 05:37 Plt Count 334 10^3/cmm (157-399) D 05/15/25 05:37 MPV 9.4 fL (7.4-10.4) 05/15/25 05:37 Neut % (Auto) 68.0 % 05/15/25 05:37 Lymph % (Auto) 16.2 % 05/15/25 05:37 [place] % (Auto) 6.9 % 05/15/25 05:37 Eos % (Auto) 5.5 % 05/15/25 05:37 Baso % (Auto) 0.5 % 05/15/25 05:37 Neut # (Auto) 8.89 10^3/uL (1.8-7.7) H 05/15/25 05:37 Lymph # (Auto) 2.1 10^3/uL (0.8-4.8) 05/15/25 05:37 [place] # (Auto) 0.9 10^3/uL (0.2-0.9) 05/15/25 05:37 Eos # (Auto) 0.7 10^3/uL (0.0-0.8) 05/15/25 05:37 Baso # (Auto) 0.1 10^3/uL (0.0-0.1) 05/15/25 05:37 Nucleated RBC % (auto) 0.2 % 05/15/25 05:37 Nucleated RBCs # 0.0 /100WBC 05/15/25 05:37 Specimen Type Arterial 05/09/25 04:53 Sample Site Radial, right 05/09/25 04:53 ABG pH 7.36 (7.35-7.45) 05/09/25 04:53 ABG pCO2 49.5 mmHg (35-45) H 05/09/25 04:53 ABG pO2 126.0 mmHg (80.0-100.0) H 05/09/25 04:53 ABG PO2/FiO2 Ratio 315 05/09/25 04:53 ABG HCO3 27.9 mmol/L (22-26) H 05/09/25 04:53 ABG O2 Saturation 98.9 05/09/25 04:53 ABG Base Excess 1.5 mmol/L (-2.0-2.0) 05/09/25 04:53 Syd Test Pos 05/09/25 04:53 A-a O2 Gradient 12.5 mmHg (5-10) H 05/09/25 04:53 Hematocrit 46.1 % (37-47) 05/09/25 04:53 Hgb O2 Saturation 96.5 % (95-100) 05/09/25 04:53 Carboxyhemoglobin 1.2 %THgb (0.4-20.1) 05/09/25 04:53 Methemoglobin 1.1 % (0.4-1.5) 05/09/25 04:53 Total Hemoglobin 15.0 g/dL (12-16) 05/09/25 04:53 Sodium 139.0 mmol/L (131-143) 05/09/25 04:53 Potassium 3.7 mmol/L (3.5-5.0) 05/09/25 04:53 Glucose 121.0 mg/dL (70-115) H 05/09/25 04:53 Ionized Calcium 1.1 mmol/L (1.1-1.4) 05/09/25 04:53 O2 Delivery Device Vent 05/09/25 04:53 FiO2 40.0 % 05/09/25 04:53 Tidal Volume 0.40 05/09/25 04:53 PEEP 8.0 cmH20 05/09/25 04:53 Senior Professional Services Consultant ID [id number] 05/09/25 04:53 Sodium 140 mmol/L (136-145) 05/15/25 05:37 Potassium 3.2 mmol/L (3.5-5.1) L 05/15/25 05:37 Chloride 96 mmol/L (98-107) L 05/15/25 05:37 Carbon Dioxide 32 mmol/L (22-29) H 05/15/25 05:37 Anion Gap 15.2 (5-19) 05/15/25 05:37 BUN 12 mg/dL (6-20) 05/15/25 05:37 Creatinine 0.5 mg/dL (0.5-0.9) 05/15/25 05:37 GFR Calculation 129.1 mL/min (90-130) 05/15/25 05:37 Glucose 121 mg/dL (65-115) H 05/15/25 05:37 POC Glucose 136 mg/dL (70-110) H 05/15/25 06:22 Estimat Average Glucose 114 05/08/25 08:56 Hemoglobin A1c 5.6 % (4.0-6.0) 05/08/25 08:56 Calculated Osmolality 291 mOsm/kg (285-295) 05/15/25 05:37 Lactic Acid 1.7 mmol/L (0.5-2.2) 05/08/25 08:56 Calcium 9.6 mg/dL (8.5-10.5) 05/15/25 05:37 Phosphorus 2.2 mg/dL (2.5-4.5) L 05/15/25 05:37 Magnesium 1.9 mg/dL (1.7-2.3) 05/15/25 05:37 Total Bilirubin 0.7 mg/dL (0.15-1.2) 05/15/25 05:37 AST 13 U/L (0-32) 05/15/25 05:37 ALT 14 U/L (0-33) 05/15/25 05:37 Alkaline Phosphatase 68 U/L (35-105) 05/15/25 05:37 Total Protein 7.0 g/dL (6.6-8.7) 05/15/25 05:37 Albumin 3.6 g/dL (3.5-5.2) 05/15/25 05:37 Globulin 3.4 g/dL (1.3-4.6) 05/15/25 05:37 Lipase 36 U/L (13-60) 05/08/25 08:56 Urine Color Yellow (Yellow) 05/08/25 10:04 Urine Appearance Cloudy (CLEAR) A 05/08/25 10:04 Urine pH 5 (5-7) 05/08/25 10:04 Ur Specific [place] 1.025 (1.005-1.030) 05/08/25 10:04 Urine Protein 1+ (Negative) H 05/08/25 10:04 Urine Glucose (UA) Norm (Normal) 05/08/25 10:04 Urine Ketones 1+ (Negative) H 05/08/25 10:04 Urine Blood 3+ (Negative) H 05/08/25 10:04 Urine Nitrate Positive (Negative) A 05/08/25 10:04 Urine Bilirubin Neg (Negative) 05/08/25 10:04 Urine Urobilinogen Neg mg/dL (Negative) 05/08/25 10:04 Ur Leukocyte Esterase Trace (Negative) H 05/08/25 10:04 Urine RBC 5-10 /hpf (0-2) H 05/08/25 10:04 Urine WBC 5-10 /hpf (0-5) H 05/08/25 10:04 Ur Squamous Epith Cells 5-10 /hpf (0-5) H 05/08/25 10:04 Calcium Oxalate Crystal 0-4 /hpf H 05/08/25 10:04 Amorphous Sediment Not Reportable 05/08/25 10:04 Urine Bacteria 3+ /hpf (NONE) H 05/08/25 10:04 Urine Mucus 1+ /hpf 05/08/25 10:04 Vitals Last Vital Signs Temp 98.1 F 05/15/25 07:27 Pulse 78 05/15/25 07:39 Resp 16 05/15/25 07:39 BP 181/99 05/15/25 07:27 Pulse Ox 95 05/15/25 07:39 O2 Del Method Room Air 05/15/25 07:39 O2 Flow Rate 1 05/14/25 04:00 FiO2 30 05/12/25 12:00 Discharge Plan Discharge Patient Disposition: Home Condition: Stable Prescriptions: New polyethylene glycol 3350 [Miralax] 17 gram powder in packet 17 g PO DAILY 30 Days Qty: 30 0RF oxycodone 5 mg tablet 5 mg PO Q8H PRN (Reason: pain) 5 Days Qty: 15 0RF Continued sertraline 100 mg tablet 100 mg PO DAILY levothyroxine 125 mcg tablet 125 mcg PO QAM Discontinued Zepbound 7.5 mg/0.5 mL pen injector 7.5 mg SUBCUT Q7D Rx Instructions: Sundays Discharge Order = DC NOW: Discharge Order (Routine); Ordered 05/15/25 Ordered By: Ashok Pizarro Other Ambulatory Orders: DME: Walker (Order) Location: None Selected Ordered By: Loyd Dyson Referrals: Heather Yip FNP [Primary Care Provider, Nurse Practitioner] - 4-7 days Referral Note: You will need to call your primary care provider Saturday to get a discharge follow up appointment in 4-7 days. Duran Pemberton MD [Physician, General Surgery] Referral Note: 2 weeks Discharge Diet: Advance as tolerated Discharge Activity: Limit activity as instructed Patient Instructions: Opioid Safety, Pain Management, Patient Portal & Mayi Instructions Activity Restrictions/Additional Instructions: no heavy lifting, nothing more than 10 pounds for 6 weeks return to the hospital if you have fever, chills or worsening abdominal pain. you can shower and let soap and water over your wound Discharge Attestations Time Spent in Discharge Care*: greater than 30 min Quality Metrics Clinical Quality Measures [ No reported AMI, CVA or VTE this stay] Coding Level of Care Code Acute Code for Chg Fwd Diagnoses Ischemia, bowel K55.9 Strangulated hernia of abdominal wall K43.6 Morbid obesity E66.01
[2025-05-15] MEDS: potassium phosphate (mMol PO4) 30 MMOL in sodium chloride 0.9% (100 ml) 100 ML 25 MMOL IV (08:32)
--- NOTE | 2025-05-15 11:39 | P.PN_ITS ---
Subjective 2 Subjective: - Patient was seen this morning - She is sitting up to side of bed - Wheeled walker at bedside - She is ready to go home - She had a bowel movement, passing gas, no nausea, no vomiting, no chest pain - Discussed that she should remain ambul atory at home, as she has an increased risk of hypercoagulable event such as DVTs and pulmonary embolism - She needs to use incentive spirometer - Follow-up with primary care provider - Hold her Zepbound until she sees prima care - Use oxycodone sparingly for pain, do n ot drive or operate machinery or drink while taking medication Vitals/I&O/Wt Last Vital Signs Temp 98.1 F 05/15/25 07:27 Pulse 78 05/15/25 07:39 Resp 16 05/15/25 07:39 BP 181/99 05/15/25 07:27 Pulse Ox 95 05/15/25 07:39 O2 Del Method Room Air 05/15/25 07:39 O2 Flow Rate 1 05/14/25 04:00 FiO2 30 05/12/25 12:00 05/14/25 05/15/25 05/15/25 22:59 06:59 14:59 Intake Total 410 / 1340 50 / 1390 120 / 120 Output Total 100 / 350 200 / 550 Balance 310 / 990 -150 / 840 120 / 120 Physical Exam 2 Const: COMMON NORMALS: no acute distress and patient oriented x3 Resp: COMMON NORMALS: normal respiratory effort, No retractions, No use of accessory muscles and clear to auscultation bilaterally AUSCULTATION: clear to auscultation bilaterally Cardio: COMMON NORMALS: regular rate, regular rhythm, S1 normal heart sound present and S2 normal heart sound present RATE: regular rate RHYTHM: r egular rhythm HEART SOUNDS: S1 normal heart sound present and S2 normal heart sound present GI: COMMON NORMALS: Normal to inspection, nondistended, normoactive bowel sounds present and non-tender OTHER: Surgical staple site looks clean and dry Extremity: COMMON NORMALS: no pedal edema Neuro: COMMON NORMALS: patient oriented x3 Psych: COMMON NORMALS: mental status grossly normal Urinary Catheter Management: Pacheco: Cath Placed During This Visit: yes, but has since been removed by the nurse Reason for Continuing Indwelling Catheter: Decision to DC Catheter Urinary Catheter Date of Insertion: 05/08/25 Urinary Catheter Time of Insertion: 12:53 Date Urinary Catheter Removed: 05/12/25 Time Urinary Catheter Discontinued: 16:52 Data 05/15/25 05:37 05/15/25 05:37 A&P Assessment and plan 1. Ischemia, bowel: 2. Strangulated hernia of abdominal wall: 3. Morbid obesity: Plan: 54 year old female presenting with ventral hernia with strangulation of small bowel. Ventral hernia with strangulation of small bowel -May 08 Ventral hernia with strangulated small bowel, 50 cm of ischemic bowel (2 separate segments of 30 and 20 cm in mid ileum) -May 09 status post opening of recent exploratory laparotomy, bowel resection, closure, 20 cm of necrotic mid ileum Plan - NG tube removed - On regular diet -Continue IV Zosyn - On p.o. pain control Acute hypoxia -S/p extubation 05/09/2025 - Currently on room air - Incentive spirometer, flutter valve, up out of bed - Will consider Lasix based on clinical progress hypothyroidism - resume levothyroxine Anxiety - Sertraline Morbid obesity - BMI 67.6 - A1c 5.6, nondiabetic range. - SSI Diet: NPO PPx: per surgery Lovenox for DVT prophylaxis Disposition - Patient will be discharged today PDMP PDMP Reviewed: Not Reviewed Attestations 2 Medical Necessity Statement*: Patient will be discharged today Diagnoses Ischemia, bowel K55.9 Strangulated hernia of abdominal wall K43.6 Morbid obesity E66.01
--- NOTE | 2025-05-15 11:48 | PC.NURSE ---
Discharge instructions provided to pt and family. No questions or concerns voiced. To private vehicle via wheelchair with all belongings.
[2025-05-15 11:49] VITALS: BP 181/90; PULSE 76; RESP 16; TEMP 36.7; O2SAT 97
== END 2025-05-15 11:51 | disposition home or self-care (01) | DRG 329 ==
LOC: ER 11:27 → OR 11:44 → ICU 13:51 → MEDSURG 05-10 17:21
PROVIDERS: Family Medicine; Internal Medicine; Admitting Provider Student in an Organized Health Care Education/Training Program; Emergency Provider Family Medicine; PCP Registered Nurse; Visit Provider Student in an Organized Health Care Education/Training Program
PROC: 0WQF0ZZ Repair Abdominal Wall, Open Approach (ICD-10-PCS; CPT 49000; principal; 2025-05-08 12:30)
PROC: 0DBB0ZZ Excision of Ileum, Open Approach (ICD-10-PCS; CPT 49000; principal; 2025-05-09 08:00)
DX: K43.6 Other and unspecified ventral hernia with obstruction, without gangrene (principal); K55.029 Acute infarction of small intestine, extent unspecified; K55.9 Vascular disorder of intestine, unspecified; Z68.44 Body mass index [BMI] 60.0-69.9, adult; E66.01 Morbid (severe) obesity due to excess calories; E11.9 Type 2 diabetes mellitus without complications; E03.9 Hypothyroidism, unspecified; F17.200 Nicotine dependence, unspecified, uncomplicated; K27.9 Peptic ulcer, site unspecified, unspecified as acute or chronic, without hemorrhage or perforation; F41.9 Anxiety disorder, unspecified; R09.02 Hypoxemia; Z79.85 Long-term (current) use of injectable non-insulin antidiabetic drugs
CPT/HCPCS: 36415; 36416; 36573; 36600; 51702; 71045; 74176; 80048; 80051; 80053; 81001; 82330; 82805; 82962; 83036; 83605; 83690; 83735; 84100; 85025; 87077; 87086; 87186; 88302; 88307; 93005; 94003; 94640; 94660; 94664; 94799; 96372; 96374; 96375; 96376; 97110; 97116; 97162; 97167; 97530; 97535; 99285; A4570; C9250; J0330; J0360; J0690; J1171; J1644; J1650; J1815; J1938; J2250; J2405; J2543; J2704; J3010; J3490; J7030; J9999

== ENCOUNTER 2025-06-11 22:50 | Inpatient (IN) | payer BC, MEDICAID, SELFPAY ==
[2025-06-11 22:53] VITALS: BP 190/78; PULSE 78; RESP 16; TEMP 36.9; O2SAT 97; BMI 61.7
[2025-06-11 22:58] VITALS: BP 162/72; PULSE 92; RESP 20; O2SAT 96
--- OUTSIDE RECORDS SUMMARY | 2025-06-11 22:59 | XMS_ITS | Clinical Summary ---
Author Organization [facility] Address [address] [place]: Epic Prelude ADT [place] [address] Care Team Providers Care Guzzler Builder Name Role Phone Osirisgiselle Mckay COVINGTON Primary Care Provider [phone] Allergies Active Allergy Reactions Criticality Noted Date [...] 7 days. 2 mL 2 5 Active Active Problems Problem Noted Date Diagnosed [...] Encounters Date Type Department Care Team Description 06/02/2025 External Device Data [facility] ABSTRACTION Provider, Abstract 05/25/2025 External Device Data [facility] Provider, Abstract 05/25/2025 External Device Data [facility] Provider, Abstract 05/21/2025 Orders Only [place] [address] [place] [id number] Provider, Abstract 05/21/[address] [place] [address] Mckay Crawford DO 05/19/[address] [address] Mckay Crawford DO Information 05/10/2025 Orders Only [facility] Health Information Management [place] [address] [place] [address] Provider, Abstract 04/10/2025 Orders Only [address] [address] Heather Yip FNP Worms in stool (Primary Dx) 04/06/2025 External Device Data [facility]STRACTION Provider, Abstract 04/06/2025 External Device Data [facility]STRACTION Provider, Abstract 04/06/2025 External Device Data [facility] Provider, Abstract 03/30/2025 External Device Data [facility]STRA[facility] Provider, Abstract 03/11/2025 Results Follow-Up [address] [address] Heather Yip FNP HEMOGLOBIN A1C 03/11/2025 Orders Only [address] [address] Heather Yip FNP Hypothyroidism, unspecified type 03/11/2025 Results Follow-Up [address] [address] Heather Yip FNP TSH from Last 3 Months Immunizations Immunization Administration Dates Next Due (ADACEL/BOOSTRIX)(10 YR UP) TDAP VACCINE, 0.5ML, IM 08/14/2016 Family History Medical History Relation Name Comments SLE Maternal Grandmother Relation Name Status Comments Maternal Grandmother Social History Tobacco Use Types Packs/Day Years Used Date Smoking Tobacco: Every Day Cigarettes 1 31.2 Started: 04/09/1994 Smokeless Tobacco: Never Tobacco Cessation:Ready [...] on file 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 Raymond will call [facility] to seek in person therapy for trauma. Procedures Procedure Name Priority Date/Time Associated Diagnosis Comments COMPREHENSIVE METABOLIC PANEL Routine 05/15/2025 11:26 AM CDT BASIC METABOLIC PANEL Routine 05/09/2025 11:26 AM CDT COMPREHENSIVE METABOLIC PANEL Routine 05/08/2025 2:56 PM CDT HEMOGLOBIN A1C Routine 05/08/2025 LIPID PANEL Routine 12/07/2024 11:58 AM CDT Type 2 diabetes mellitus without complication, without long-term current use of insulin ([facility]) from Last 3 Months or Most Recently Relevant to Health Maintenance Results * COMPREHENSIVE METABOLIC PANEL (05/15/2025 11:26 AM CDT) Only the most recent of2 resultswithin the time period is included. Blood us Abstract Provider CHEMISTRY ORDERABLES Final Res ult * BASIC METABOLIC PANEL (05/09/2025 11:26 AM CDT) Blood us Abstract Provider CHEMISTRY ORDERABLES Final Res ult * HEMOGLOBIN A1C (05/08/2025) ABSTRACTED HGB A1C 5.6 % Blood 05/08/2025 us Abstract Provider CHEMISTRY ORDERABLES Final Res ult * (ABNORMAL) LIPID PANEL (12/07/2024 11:58 AM [...] factors. LDL-C is now calculated using the Diego-Pat calculation, which is a validated novel method providing better accuracy than the Friedewald equation in the estimation of LDL-C. Diego SS et al. VANESSA. 2013;310(19): 9769-9520 (http://education.[employer]/faq/WMO632) CHOL/HDL RATIO 4.2 <5.0 (calc) [facility] NON-HDL CHOLESTEROL 163(H) <130 mg/dL (calc) [facility] Comment: For patients with diabetes plus 1 major ASCVD risk factor, treating to a non-HDL-C goal of <100 mg/dL (LDL-C of <70 mg/dL) is considered a therapeutic option. Test Performed at: [facility] [address] [address] Lisa Torres MD Blood 12/07/2024 11:5 8 AM CDT 12/07/2024 11:58 AM CDT us Heather Yip TELEPHONE ANSWERER CHEMISTRY ORDERABLES Final Re sult [facility] [phone] [facility] [address] [place] [address] from Last 3 Months or Most Recently Relevant to Health Maintenance Insurance [facility] MEDICAID Care Teams Guzzler Builder Relationship Specialty Start Date End Date Mckay Crawford DO [address] [place] [address] PCP - General Family Practice 12/17/22
[2025-06-12] VITALS (23 sets, daily range): BP systolic 128–173; BP diastolic 64–89; PULSE 76–96; RESP 15–19; TEMP 36.3–36.9; O2SAT 89–96; BMI 64.3
[2025-06-12 00:46] LABS: Hematocrit 44.2 % (36-47); Hemoglobin 14.00 g/dL (11.27-16.99); Mean Corpuscular HGB Conc 31.7 g/dL (30-55); Mean Corpuscular Hemoglobin 26.8 pg (27-33); Mean Corpuscular Volume 84.5 fl (85-98); Nucleated Red Blood Cells % 0 %; Platelet Count 361 10^3/cmm (157-399); Red Blood Count 5.23 10^6/uL (3.85-5.65); White Blood Count 12.69 10^3/uL (3.29-11.43)
[2025-06-12 01:02] LABS: Alanine Aminotransferase 15 U/L (0-33); Albumin Level 4.2 g/dL (3.5-5.2); Alkaline Phosphatase 100 U/L (35-105); Anion Gap 16.4 (5-19); Aspartate Amino Transferase 15 U/L (0-32); Blood Urea Nitrogen 10 mg/dL (6-20); Calcium 9.5 mg/dL (8.5-10.5); Carbon Dioxide 29 mmol/L (22-29); Chloride 100 mmol/L (98-107); Globulin 3.6 g/dL (1.3-4.6); Glucose 116 mg/dL (65-115); Osmolality Calculated 292 mOsm/kg (285-295); Potassium 4.4 mmol/L (3.5-5.1); Sodium 141 mmol/L (136-145); Total Protein 7.8 g/dL (6.6-8.7)
[2025-06-12 01:03] LABS: Lactic Sepsis W/Reflex 1.1 mmol/L (0.5-2.2)
--- NOTE | 2025-06-12 01:03 | CTR_ITS ---
PROCEDURE INFORMATION: Exam: CT Abdomen And Pelvis With Contrast Exam date and time: 06/12/2025 1:36 AM Age: 54 years old Clinical indication: Other: Draining incision site; Prior surgery; Surgery date: 1-6 months; Surgery type: Hernia repair with bowel resection five weeks ago. Gb. Patient having purluent drainage from ventral abd incision site from hernia repair with bowel resection five weeks ago. ; Additional info: Surgical wound drainage, odor TECHNIQUE: Imaging protocol: Computed tomography of the abdomen and pelvis with contrast. Radiation optimization: All CT scans at this facility use at least one of these dose optimization techniques: automated exposure control; mA and/or kV adjustment per patient size (includes targeted exams where dose is matched to clinical indication); or iterative reconstruction. Contrast material: OMNI 350; Contrast volume: 100 ml; Contrast route: INTRAVENOUS (IV); COMPARISON: CT abdomen pelvis wo con [id number] 05/08/2025 9:15 AM RADIATION DOSE METRICS: Total DLP (mGy-cm): 2327.43 FINDINGS: Liver: Normal. No mass. Gallbladder and biliary ducts: Cholecystectomy. Pancreas: Normal. No ductal dilation. Spleen: Normal. No splenomegaly. Adrenal glands: Normal. No mass. Kidneys and ureters: Normal. No hydronephrosis. Stomach and bowel: Diverticulosis, without acute diverticulitis. Partial small bowel resection. No bowel obstruction. No free air. Appendix: No evidence of appendicitis. Intraperitoneal space: See Stomach and bowel finding. Vasculature: Atherosclerotic changes of the aorta. Lymph nodes: Unremarkable. No enlarged lymph nodes. Urinary bladder: Unremarkable as visualized. Reproductive: Unremarkable as visualized. Bones/joints: Degenerative changes of the spine. Soft tissues: Anterior midline subcutaneous abscess, with collections measuring 7.9 x 5.6 cm and 3.[address]/CT abdomen pelvis w con* [id number] IMPRESSION: 1. Anterior midline subcutaneous abscess, with collections measuring 7.9 x 5.6 cm and 3.2 x 3.6 cm. 2. Cholecystectomy. 3. Diverticulosis, without acute diverticulitis. Partial small bowel resection. No bowel obstruction. No free air.
--- NOTE | 2025-06-12 01:05 | W.ED.SKABFB ---
Documented by User: JOHNIE Harrison 06/12/25 02:16 HPI - Skin/Abscess/Foreign Bdy General: Chief complaint: Skin/Abscess/Foreign Body Stated complaint: surg incision oozing large amt fluid Time Seen by Provider: 06/12/25 00:04 History of Present Illness: Patient is a 54-year-old female with history of hypothyroidism, obesity, BMI of 62, with recent colectomy 5 weeks ago, specifically ventral hernia repair with necrotic small bowel up to 20 cm on 05/08, reports with 3 days of a oozing large amount of fluid from her abdominal incision. This is a vertical incision, with yellow pustulant drainage. She has not had a fever, or chills. She has had a gross amount of drainage. She states there is smell to it. No nausea or vomiting. She has however had diarrhea that started today, with 3?4 looser stools with the same smell. Associated symptoms: Reports nausea; Deny chills, fever(s) or vomiting Related Data Home Medications ?Medication ?Instructions ?Recorded ?Confirmed levothyroxine 125 mcg tablet 125 mcg PO QAM 05/08/25 06/12/25 sertraline 100 mg tablet 100 mg PO DAILY 05/08/25 06/12/25 cholecalciferol (vitamin D3) 25 25 mcg PO DAILY 06/12/25 06/12/25 mcg (1,000 unit) capsule (Vitamin D3) cyanocobalamin (vitamin B-12) 1,000 mcg PO DAILY 06/12/25 06/12/25 1,000 mcg capsule magnesium oxide 400 mg PO DAILY 06/12/25 06/12/25 Previous Rx's ?Medication ?Instructions ?Recorded polyethylene glycol 3350 17 gram 17 g PO DAILY 30 days #30 ea 05/15/25 oral powder packet (Miralax) Allergies Allergy/AdvReac Type Severity Reaction Status Date / Time adhesive tape Allergy ALGY-Rash Verified 06/12/25 03:05 Review of Systems Const: Denies: fever(s), chills, change in weight or fatigue Eyes: Denies: change in vision or blurry vision Card: Denies: chest pain or palpitations Resp: Denies: dyspnea or non-productive cough GI: Reports: abdominal pain, nausea and diarrhea; Denies: vomiting or hematochezia : Denies: flank pain, difficulty voiding or dysuria Musc: Denies: neck pain or back pain Skin/Breast: Denies: rash, nipple discharge or breast mass Neuro: Denies: headache(s) or seizure-like activity Psych: Denies: anxiety or depression Jacky/Lymph: Denies: easy bruising PFSH ED PFSH: Medical History (Updated 06/12/25 @ 02:08 by JOHNIE Harrison) Morbid obesity Abdominal wall hernia Hypothyroidism Diabetes mellitus PUD (peptic ulcer disease) Social History Smoking and tobacco/nicotine status: never used tobacco/nicotine Physical Exam Const: COMMON NORMALS: no acute distress and patient oriented x3 NUTRITIONAL APPEARANCE: overweight HENMT: COMMON NORMALS: normocephalic and atraumatic HEAD & SCALP: normocephalic and atraumatic Neck/C-Spine: GENERAL: Yes normal visual inspection Lymph: LYMPHATIC: no lymphadenopathy noted Chest: COMMONS NORMALS: normal inspection of the chest and normal palpation of entire chest wall Resp: COMMON NORMALS: normal respiratory effort, No retractions and clear to auscultation bilaterally AUSCULTATION: clear to auscultation bilaterally Cardio: COMMON NORMALS: regular rate and regular rhythm RATE: regular rate RHYTHM: regular rhythm GI: COMMON NORMALS: Normal to inspection, nondistended, normoactive bowel sounds present, Soft to palpation, non-tender and No hepatosplenomegaly present PALPATION: Yes Soft to palpation and Yes No hepatosplenomegaly present : COMMON NORMALS: Yes no CVA tenderness BLADDER/KIDNEY EXAM: Yes no CVA tenderness Back/Pelvis: COMMON NORMALS: no CVA tenderness Extremity: COMMON NORMALS: normal to inspection, full ROM and capillary refill normal Neuro: COMMON NORMALS: patient oriented x3, CN's II-XII intact bilaterally, moves all extremities, no focal motor deficits and no sensory deficits noted Psych: COMMON NORMALS: mental status grossly normal, Normal thought process present, cooperative, normal affect and speech normal SPEECH: Yes normal speech THOUGHT PROCESS: Normal thought process present Skin: SKIN IMAGES (FEMALE):  1. Midline laceration with gross purulent drainage Course Reevaluation(s): Reevaluation #1: Improved Consultations: Consultation #1: Discussed with Dr. Shirley, whom has accepted patient. N.p.o. for surgery in the morning. Vital Signs: Vital signs: Vital Signs Temperature 98.4 F 06/11/25 22:53 Pulse Rate 89 06/12/25 02:59 Respiratory Rate 16 06/12/25 02:59 Blood Pressure 150/89 06/12/25 02:59 Pulse Oximetry 96 06/12/25 02:59 Oxygen Delivery Me thod Room Air 06/12/25 03:06 MDM - Skin/Abscess/Foreign Bdy Medicial Decision Making Patient is status post ventral hernia with strangulated small bowel of 20 cm of necrotic mid ileum from 05/08/25 with purulent drainage in abdomen. work up pending: CT abd / pel. Turned patient over to Dr. Javier Medical Records I reviewed the patient's medical records. Lab Data I reviewed the patient's lab results. 06/12/25 00:39 06/12/25 00:39 Radiology Impressions Abdomen/Pelvis CT 06/12/25 01:03 IMPRESSION: 1. Anterior midline subcutaneous abscess, with collections measuring 7.9 x 5.6 cm and 3.2 x 3.6 cm. 2. Cholecystectomy. 3. Diverticulosis, without acute diverticulitis. Partial small bowel resection. No bowel obstruction. No free air. Laboratory Results WBC 12.69 10^3/uL (3.29-11.43) H 06/12/25 00:39 RBC 5.23 10^6/uL (3.85-5.65) 06/12/25 00:39 Hgb 14.00 g/dL (11.27-16.99) 06/12/25 00:39 Hct 44.2 % (36-47) 06/12/25 00:39 MCV 84.5 fl (85-98) L 06/12/25 00:39 MCH 26.8 pg (27-33) L 06/12/25 00:39 MCHC 31.7 g/dL (30-55) 06/12/25 00:39 RDW 14.9 % (12.1-15.1) 06/12/25 00:39 Plt Count 361 10^3/cmm (157-399) 06/12/25 00:39 MPV 9.0 fL (7.4-10.4) 06/12/25 00:39 Neut % (Auto) 64.2 % 06/12/25 00:39 Lymph % (Auto) 22.5 % 06/12/25 00:39 [place] % (Auto) 7.0 % 06/12/25 00:39 Eos % (Auto) 5.3 % 06/12/25 00:39 Baso % (Auto) 0.3 % 06/12/25 00:39 Neut # (Auto) 8.14 10^3/uL (1.8-7.7) H 06/12/25 00:39 Lymph # (Auto) 2.9 10^3/uL (0.8-4.8) 06/12/25 00:39 [place] # (Auto) 0.9 10^3/uL (0.2-0.9) 06/12/25 00:39 Eos # (Auto) 0.7 10^3/uL (0.0-0.8) 06/12/25 00:39 Baso # (Auto) 0.0 10^3/uL (0.0-0.1) 06/12/25 00:39 Nucleated RBC % (auto) 0 % 06/12/25 00:39 Nucleated RBCs # 0.0 /100WBC 06/12/25 00:39 Sodium 141 mmol/L (136-145) 06/12/25 00:39 Potassium 4.4 mmol/L (3.5-5.1) 06/12/25 00:39 Chloride 100 mmol/L (98-107) 06/12/25 00:39 Carbon Dioxide 29 mmol/L (22-29) 06/12/25 00:39 Anion Gap 16.4 (5-19) 06/12/25 00:39 BUN 10 mg/dL (6-20) 06/12/25 00:39 Creatinine 0.6 mg/dL (0.5-0.9) 06/12/25 00:39 GFR Calculation 104.6 mL/min (90-130) 06/12/25 00:39 Glucose 116 mg/dL (65-115) H 06/12/25 00:39 Calculated Osmolality 292 mOsm/kg (285-295) 06/12/25 00:39 Lactic Acid 1.1 mmol/L (0.5-2.2) 06/12/25 00:39 Calcium 9.5 mg/dL (8.5-10.5) 06/12/25 00:39 Total Bilirubin 0.3 mg/dL (0.15-1.2) 06/12/25 00:39 AST 15 U/L (0-32) 06/12/25 00:39 ALT 15 U/L (0-33) 06/12/25 00:39 Alkaline Phosphatase 100 U/L (35-105) 06/12/25 00:39 C-Reactive Protein 15.2 mg/L (0.0-4.9) H 06/12/25 00:39 Total Protein 7.8 g/dL (6.6-8.7) 06/12/25 00:39 Albumin 4.2 g/dL (3.5-5.2) 06/12/25 00:39 Globulin 3.6 g/dL (1.3-4.6) 06/12/25 00:39 Urine Color Yellow (Yellow) 06/12/25 02:09 Urine Appearance Cloudy (CLEAR) A 06/12/25 02:09 Urine pH 6.0 (5-7) 06/12/25 02:09 Ur Specific [place] 1.036 (1.005-1.030) H 06/12/25 02:09 Urine Protein Trace (Negative) A 06/12/25 02:09 Urine Glucose (UA) Negative (Normal) 06/12/25 02:09 Urine Ketones Trace (Negative) 06/12/25 02:09 Urine Blood Negative (Negative) 06/12/25 02:09 Urine Nitrate Positive (Negative) A 06/12/25 02:09 Urine Bilirubin Negative (Negative) 06/12/25 02:09 Urine Urobilinogen 1.0 mg/dL (Negative) 06/12/25 02:09 Ur Leukocyte Esterase 2+ (Negative) A 06/12/25 02:09 Urine RBC 6-10 /hpf (0-2) 06/12/25 02:09 Urine WBC 11-20 /hpf (0-5) H 06/12/25 02:09 Ur Squamous Epith Cells 11-20 /hpf (0-5) H 06/12/25 02:09 Amorphous Sediment Not Reportable 06/12/25 02:09 Urine Bacteria 4+ /hpf (NONE) H 06/12/25 02:09 Hyaline Casts 1.21 /lpf 06/12/25 02:09 All radiology interpretation(s) finalized by discharge Discharge Plan Discharge Patient Disposition: Admitted As Inpatient Admit Provider: Ashok Pizarro Clinical Impression: Abdominal abscess Condition: Stable Coding Level of Care Code ED Rounding Machine Tender for Chg Fwd Documented by User: Hawk Javier, 06/12/25 04:00 HPI - Skin/Abscess/Foreign Bdy General: Chief complaint: Skin/Abscess/Foreign Body Stated complaint: surg incision oozing large amt fluid Time Seen by Provider: 06/12/25 00:04 Related Data Home Medications ?Medication ?Instructions ?Recorded ?Confirmed levothyroxine 125 mcg tablet 125 mcg PO QAM 05/08/25 06/12/25 sertraline 100 mg tablet 100 mg PO DAILY 05/08/25 06/12/25 cholecalciferol (vitamin D3) 25 25 mcg PO DAILY 06/12/25 06/12/25 mcg (1,000 unit) capsule (Vitamin D3) cyanocobalamin (vitamin B-12) 1,000 mcg PO DAILY 06/12/25 06/12/25 1,000 mcg capsule magnesium oxide 400 mg PO DAILY 06/12/25 06/12/25 Previous Rx's ?Medication ?Instructions ?Recorded polyethylene glycol 3350 17 gram 17 g PO DAILY 30 days #30 ea 05/15/25 oral powder packet (Miralax) Allergies Allergy/AdvReac Type Severity Reaction Status Date / Time adhesive tape Allergy ALGY-Rash Verified 06/12/25 03:05 PFS ED PFSH: Medical History (Updated 06/12/25 @ 02:08 by JOHNIE Harrison) Morbid obesity Abdominal wall hernia Hypothyroidism Diabetes mellitus PUD (peptic ulcer disease) Social History Smoking and tobacco/nicotine status: never used tobacco/nicotine Physical Exam Skin: SKIN IMAGES (FEMALE):  1. Midline laceration with gross purulent drainage Course Vital Signs: Vital signs: Vital Signs Temperature 98.4 F 06/11/25 22:53 Pulse Rate 89 06/12/25 02:59 Respiratory Rate 16 06/12/25 02:59 Blood Pressure 150/89 06/12/25 02:59 Pulse Oximetry 96 06/12/25 02:59 Oxygen Delivery Me thod Room Air 06/12/25 03:06 MDM - Skin/Abscess/Foreign Bdy Medicial Decision Making Patient is status post ventral hernia with strangulated small bowel of 20 cm of necrotic mid ileum from 05/08/25 with purulent drainage in abdomen. work up pending: CT abd / pel. Turned patient over to Dr. Javier This patient was originally seen by Ms. Lyric PA-C. I agree with her history, evaluation, and management. White blood cell count is 13. Other laboratory not terribly remarkable. CT shows an anterior midline subcutaneous abscess measuring 8 x 5-1/2 x 3 plus centimeters. The PA spoke with surgery on-call. Patient will be admitted. IV antibiotics ordered. Lab Data 06/12/25 00:39 06/12/25 00:39 Radiology Impressions Abdomen/Pelvis CT 06/12/25 01:03 IMPRESSION: 1. Anterior midline subcutaneous abscess, with collections measuring 7.9 x 5.6 cm and 3.2 x 3.6 cm. 2. Cholecystectomy. 3. Diverticulosis, without acute diverticulitis. Partial small bowel resection. No bowel obstruction. No free air. Laboratory Results WBC 12.69 10^3/uL (3.29-11.43) H 06/12/25 00:39 RBC 5.23 10^6/uL (3.85-5.65) 06/12/25 00:39 Hgb 14.00 g/dL (11.27-16.99) 06/12/25 00:39 Hct 44.2 % (36-47) 06/12/25 00:39 MCV 84.5 fl (85-98) L 06/12/25 00:39 MCH 26.8 pg (27-33) L 06/12/25 00:39 MCHC 31.7 g/dL (30-55) 06/12/25 00:39 RDW 14.9 % (12.1-15.1) 06/12/25 00:39 Plt Count 361 10^3/cmm (157-399) 06/12/25 00:39 MPV 9.0 fL (7.4-10.4) 06/12/25 00:39 Neut % (Auto) 64.2 % 06/12/25 00:39 Lymph % (Auto) 22.5 % 06/12/25 00:39 [place] % (Auto) 7.0 % 06/12/25 00:39 Eos % (Auto) 5.3 % 06/12/25 00:39 Baso % (Auto) 0.3 % 06/12/25 00:39 Neut # (Auto) 8.14 10^3/uL (1.8-7.7) H 06/12/25 00:39 Lymph # (Auto) 2.9 10^3/uL (0.8-4.8) 06/12/25 00:39 [place] # (Auto) 0.9 10^3/uL (0.2-0.9) 06/12/25 00:39 Eos # (Auto) 0.7 10^3/uL (0.0-0.8) 06/12/25 00:39 Baso # (Auto) 0.0 10^3/uL (0.0-0.1) 06/12/25 00:39 Nucleated RBC % (auto) 0 % 06/12/25 00:39 Nucleated RBCs # 0.0 /100WBC 06/12/25 00:39 Sodium 141 mmol/L (136-145) 06/12/25 00:39 Potassium 4.4 mmol/L (3.5-5.1) 06/12/25 00:39 Chloride 100 mmol/L (98-107) 06/12/25 00:39 Carbon Dioxide 29 mmol/L (22-29) 06/12/25 00:39 Anion Gap 16.4 (5-19) 06/12/25 00:39 BUN 10 mg/dL (6-20) 06/12/25 00:39 Creatinine 0.6 mg/dL (0.5-0.9) 06/12/25 00:39 GFR Calculation 104.6 mL/min (90-130) 06/12/25 00:39 Glucose 116 mg/dL (65-115) H 06/12/25 00:39 Calculated Osmolality 292 mOsm/kg (285-295) 06/12/25 00:39 Lactic Acid 1.1 mmol/L (0.5-2.2) 06/12/25 00:39 Calcium 9.5 mg/dL (8.5-10.5) 06/12/25 00:39 Total Bilirubin 0.3 mg/dL (0.15-1.2) 06/12/25 00:39 AST 15 U/L (0-32) 06/12/25 00:39 ALT 15 U/L (0-33) 06/12/25 00:39 Alkaline Phosphatase 100 U/L (35-105) 06/12/25 00:39 C-Reactive Protein 15.2 mg/L (0.0-4.9) H 06/12/25 00:39 Total Protein 7.8 g/dL (6.6-8.7) 06/12/25 00:39 Albumin 4.2 g/dL (3.5-5.2) 06/12/25 00:39 Globulin 3.6 g/dL (1.3-4.6) 06/12/25 00:39 Urine Color Yellow (Yellow) 06/12/25 02:09 Urine Appearance Cloudy (CLEAR) A 06/12/25 02:09 Urine pH 6.0 (5-7) 06/12/25 02:09 Ur Specific [place] 1.036 (1.005-1.030) H 06/12/25 02:09 Urine Protein Trace (Negative) A 06/12/25 02:09 Urine Glucose (UA) Negative (Normal) 06/12/25 02:09 Urine Ketones Trace (Negative) 06/12/25 02:09 Urine Blood Negative (Negative) 06/12/25 02:09 Urine Nitrate Positive (Negative) A 06/12/25 02:09 Urine Bilirubin Negative (Negative) 06/12/25 02:09 Urine Urobilinogen 1.0 mg/dL (Negative) 06/12/25 02:09 Ur Leukocyte Esterase 2+ (Negative) A 06/12/25 02:09 Urine RBC 6-10 /hpf (0-2) 06/12/25 02:09 Urine WBC 11-20 /hpf (0-5) H 06/12/25 02:09 Ur Squamous Epith Cells 11-20 /hpf (0-5) H 06/12/25 02:09 Amorphous Sediment Not Reportable 06/12/25 02:09 Urine Bacteria 4+ /hpf (NONE) H 06/12/25 02:09 Hyaline Casts 1.21 /lpf 06/12/25 02:09 Discharge Plan Discharge Patient Disposition: Admitted As Inpatient Admit Provider: Ashok Pizarro Clinical Impression: Abdominal abscess Condition: Stable Coding Level of Care Code ED Rounding Machine Tender for Osei Geiger
[2025-06-12] MEDS: iohexol 350 mg/mL 500 mL Btl (per mL) IV (01:37)
[2025-06-12] MEDS: piperacillin-tazobactam 4.5 GM in sodium chloride 0.9% (plus) 50 ML IV (01:55)
[2025-06-12] MEDS: morphine 4 mg/mL SDV 1 mL IVP ×2 (01:56→04:53)
[2025-06-12] MEDS: ondansetron 2 mg/ML SDV 2 mL 4 MG IVP ×2 (01:56→08:59)
[2025-06-12 02:15] LABS: Glucose Urine UA Negative (Normal); Nitrate Urine Positive (Negative)
[2025-06-12 02:20] LABS: Add Urine Microscopic? YES
[2025-06-12 02:26] LABS: Specific Gravity, Urine 1.036 (1.005-1.030)
--- NOTE | 2025-06-12 07:28 | PM.HP ---
Providers/Chief Complaint Admitting Physician: Ashok Pizarro MD Primary Care Provider: ANA MARIA Spear Chief Complaint: surg incision oozing large amt fluid History of Present Illness Arely Landeros is a 54 year old female With history of ventral hernia repair done in an emergent setting about a month ago. She has been experiencing leakage from her wound, was scheduled to see Dr. Pemberton on Saturday but unfortunately she has noticed the discharge from the wound to be slightly worsening. The purulent. She presented to the ER where a CT scan was done and showed evidence of 2 separate subcutaneous fluid collection consistent with abscess. I was consulted for this finding. According to the patient she has been having drainage since the time of surgery initially the drainage was yellowish clear but has progressively become thicker and purulent in nature, it has worsened over the last 72 hours to the point where she could not wait anymore at home. No nausea vomit, had 1 episode of diarrhea. e Review of Systems General: Reports: 10 or more systems reviewed and unremarkable except in HPI and below Medications/Allergies Home Medications ?Medication ?Instructions ?Recorded ?Confirmed ?Last Taken ?Type levothyroxine 125 mcg tablet 125 mcg PO QAM 05/08/25 06/12/25 06/11/25 08:00 History sertraline 100 mg tablet 100 mg PO DAILY 05/08/25 06/12/25 06/11/25 08:00 History polyethylene glycol 3350 17 gram 17 g PO DAILY 30 days #30 ea 05/15/25 06/12/25 06/11/25 08:00 Rx oral powder packet (Miralax) cholecalciferol (vitamin D3) 25 25 mcg PO DAILY 06/12/25 06/12/25 06/11/25 08:00 History mcg (1,000 unit) capsule (Vitamin D3) cyanocobalamin (vitamin B-12) 1,000 mcg PO DAILY 06/12/25 06/12/25 06/11/25 08:00 History 1,000 mcg capsule magnesium oxide 400 mg PO DAILY 06/12/25 06/12/25 06/11/25 08:00 History Allergies Allergy/AdvReac Type Severity Reaction Status Date / Time adhesive tape Allergy ALGY-Rash Verified 06/12/25 03:05 PFSH Acute PFSH: Medical History (Updated 06/12/25 @ 07:33 by Ashok Pizarro MD) Morbid obesity Abdominal wall hernia Hypothyroidism Diabetes mellitus PUD (peptic ulcer disease) Social History Smoking and tobacco/nicotine status: never used tobacco/nicotine Vitals/I&O/Wt Last Vital Signs Temp 98.2 F 06/12/25 07:07 Pulse 77 06/12/25 07:07 Resp 16 06/12/25 07:07 BP 131/70 06/12/25 07:07 Pulse Ox 90 06/12/25 07:07 O2 Del Method Room Air 06/12/25 07:07 06/11/25 06/12/25 06/12/25 22:59 06:59 14:59 Intake Total 1450 / 1450 Output Total 628 / 628 Balance 822 / 822 Weight last 48 hrs Weight 250 lb Weight 374 lb 9.6 oz Weight 360 lb Physical Exam Narrative: General excision was evaluated, there is 2 distinct areas of drainage 1 supraumbilical 1 infraumbilical in the supraumbilical region seropurulent fluid is draining from mass 0.5 cm punctum at the level of the incision, in the infraumbilical region the drainage is frankly purulent from about a 1 cm area of drainage. Abdominal examination is otherwise benign abdomen soft nontender Data 06/12/25 00:39 06/12/25 00:39 A&P Assessment and plan 1. Abdominal abscess: 2. Superficial incisional surgical site infection: Plan: 54-year-old female presenting with superficial surgical site infection after laparotomy bowel resection and repair of ventral hernia. After evaluation and review of all clinical data and imaging the following is my assessment. Imaging shows 2 distinct fluid collections 1 supraumbilical bulge infraumbilical, this is consistent with what we are seeing the physical examination. Patient will require drainage of these collections to allow for healing. Have discussed the risk and benefits of washout and debridement of the abdominal wall including the risk of bleeding, persistent infection, poor wound healing, fistula formation or identification during the case, need for additional surgical procedures, recurrent fluid collections, sepsis. Patient shows understanding agrees to proceed. Patient will remain in the hospital for additional 48 to 72 hours or IV antibiotics while we await for culture results and then she can continue her follow-up as outpatient in the general surgery clinic and wound care. PDMP PDMP Reviewed: Not Reviewed Attestations Medical Necessity Statement*: Patient will require 2 to 3 days of hospital stay for IV antibiotics and wound care Coding Level of Care Code Acute Code for Chg Fwd Diagnoses Abdominal abscess Superficial incisional surgical site infection T81.41XA
--- NOTE | 2025-06-12 07:45 | ANES.PREANE2 ---
Pre-Anesthetic Assessment Height/Weight: Height 5 ft 4 in Weight 250 lb Temp Pulse Resp BP Pulse Ox O2 Del Method 98.2 F 77 16 131/70 90 Room Air 06/12/25 07:07 06/12/25 07:07 06/12/25 07:07 06/12/25 07:07 06/12/25 07:07 06/12/25 07:07 Preop Diagnosis: abdominal abscess Operation Date: 06/12/25 08:10 Proposed Procedures p Washout and Debridement of Abdominal Wall Abcess(Not Applicable) - Ashok Pizarro MD Was Beta Emilie taken within 24 hours: N/A Was Clonidine taken within 24 hours: N/A Last intake: Intake Last Liquid Date 06/11/25 Last Solid Date 06/11/25 Social Alcohol and Tobacco Exam alert, oriented x 3 and regular rate & rhythm decreased breath sounds bilaterally Anesthetic Plan ASA status: 4 Anesthesia: General Other: No prior issues with anesthesia Patient admitted overnight with abdominal wall abscess. Prior ventral hernia repair about a month ago with us Denies any nausea or vomiting Type 2 diabetes, no insulin Hypothyroidism on Synthroid Smokes cigarettes BMI documented as 42 but ED put 62 BMI which seems more accurate Labs reviewed from today, WBC 12.6, hemoglobin 14, electrolytes stable Plan for GETA Medications/Allergies Home Medications ?Medication ?Instructions ?Recorded ?Confirmed ?Last Taken ?Type levothyroxine 125 mcg tablet 125 mcg PO QAM 05/08/25 06/12/25 06/11/25 08:00 History sertraline 100 mg tablet 100 mg PO DAILY 05/08/25 06/12/25 06/11/25 08:00 History polyethylene glycol 3350 17 gram 17 g PO DAILY 30 days #30 ea 05/15/25 06/12/25 06/11/25 08:00 Rx oral powder packet (Miralax) cholecalciferol (vitamin D3) 25 25 mcg PO DAILY 06/12/25 06/12/25 06/11/25 08:00 History mcg (1,000 unit) capsule (Vitamin D3) cyanocobalamin (vitamin B-12) 1,000 mcg PO DAILY 06/12/25 06/12/25 06/11/25 08:00 History 1,000 mcg capsule magnesium oxide 400 mg PO DAILY 06/12/25 06/12/25 06/11/25 08:00 History Allergies Allergy/AdvReac Type Severity Reaction Status Date / Time adhesive tape Allergy ALGY-Rash Verified 06/12/25 03:05 Current Medications Generic Name Dose Route Start Last Admin Trade Name Sofya PRN Reason Stop Dose Admin Lactated Ringer's 1,000 mls @ 125 mls/hr 06/12/25 02:15 06/12/25 04:17 Lactated Ringers IV 125 mls/hr On Hold: 06/12/25 07:06 .Q8H BRENDON Administration Comment: Order held by Process Transfer Vancomycin HCl 2,000 mg in 400 mls @ 200 mls/hr 06/12/25 03:15 06/12/25 05:45 Vancocin IV Infused On Hold: 06/12/25 07:06 Q12H BRENDON Infusion Comment: Order held by Process Transfer Morphine Sulfate 4 mg 06/12/25 02:10 06/12/25 04:53 Morphine 4 Mg/Ml Sdv 1 Ml IVP 4 mg On Hold: 06/12/25 07:06 Q4H PRN Administration Comment: Order held by Process SEVERE PAIN Transfer [facility] Anesthesia Medical History (Updated 06/12/25 @ 07:33 by Ashok Pizarro MD) Morbid obesity Abdominal wall hernia Hypothyroidism Diabetes mellitus PUD (peptic ulcer disease) Social History Smoking and tobacco/nicotine status: never used tobacco/nicotine Data Anesthesia 06/12/25 00:39 06/12/25 00:39 Short CBC 06/12/25 Range/Units 00:39 WBC 12.69 H (3.29-11.43) 10^3/uL Hgb 14.00 (11.27-16.99) g/dL Hct 44.2 (36-47) % MCV 84.5 L (85-98) fl Plt Count 361 (157-399) 10^3/cmm Neut % (Auto) 64.2 % Neut # (Auto) 8.14 H (1.8-7.7) 10^3/uL BMP 06/12/25 00:39 Sodium 141 Potassium 4.4 Chloride 100 Carbon Dioxide 29 BUN 10 Creatinine 0.6 Glucose 116 H Calcium 9.5 Liver Function 06/12/25 Range/Units 00:39 Total Bilirubin 0.3 (0.15-1.2) mg/dL AST 15 (0-32) U/L ALT 15 (0-33) U/L Alkaline Phosphatase 100 (35-105) U/L Albumin 4.2 (3.5-5.2) g/dL Urine 06/12/25 Range/Units 02:09 Urine Color Yellow (Yellow) Urine Appearance Cloudy A (CLEAR) Urine pH 6.0 (5-7) Ur Specific [place] 1.036 H (1.005-1.030) Urine Protein Trace A (Negative) Urine Glucose (UA) Negative (Normal) Urine Ketones Trace (Negative) Urine Nitrate Positive A (Negative) Urine Bilirubin Negative (Negative) Ur Leukocyte Esterase 2+ A (Negative) Urine RBC 6-10 (0-2) /hpf Urine WBC 11-20 H (0-5) /hpf Coags 06/12/25 00:39 C-Reactive Protein 15.2 H
[2025-06-12] MEDS: piperacillin-tazobactam 3.375 GM in sodium chloride 0.9% (plus) 50 ML IV ×2 (07:56→19:23)
--- NOTE | 2025-06-12 08:44 | PM.OP ---
Operative Report Date of procedure: June 12, 2025 Pre-op diagnosis: Abdominal wall abscess Post-op diagnosis: Abdominal wall abscess x 2 Post-op findings: There was a superficial subcutaneous abdominal wall abscess in the supraumbilical location with about 10 cc of purulent material, there was a deep subcutaneous abdominal wall abscess in the infraumbilical location with about 25 cc of pus. Abscess were evacuated and packed Procedure done: Debridement and washout of abdominal wall abscess x 2 Specimens removed/disposition: Upper abdomen abscess culture aerobic and anaerobic, lower abdominal abscess culture aerobic and anaerobic Surgeon: Ashok Pizarro MD Roof Truss Machine Tender: DANNY OR STaff Complications: None apparent Brief History: 54-year-old female presenting with surgical site infection. After discussion of all risk benefits we proceed to the OR for debridement Procedure: Patient was brought into the OR, she was placed in a supine position, general anesthesia was given. The abdomen was prepped and draped in the usual sterile fashion and a timeout was conducted. Guided by preop imaging review as well as clinical presentation we knew that there were 2 distinct abscess cavities in the abdominal wall, the supraumbilical abscess cavity was smaller and superficial, I accessed this cavity with an 11 blade and immediately after opening the skin the area of drainage large amount of purulence was evacuated, aerobic and anaerobic cultures were obtained. The abscess cavity was then completely evacuated. The cavity was washed with abundant amount of saline. I then used a curette to clear the devitalized tissue from the edges of the abscess cavity. The abscess cavity noted to be tracking to the level of the fascia but the fascia appear intact. The cavity was temporarily packed with a Ray-Kasey and then I placed my attention in the infraumbilical location, the area of drainage was identified and 2.5 cm incision with 11 blade was made, the abscess cavity was not immediately apparent as this was deeper than the supraumbilical location, I then used a hemostat to probe the tissue until the abscess cavity was identified, the abscess cavity was opened in an area of about 2 to 2.5 cm, very large amount of purulence was evacuated, aerobic and anaerobic cultures were obtained. The cavity was completely evacuated. The cavity was irrigated with copious amount of saline. I then used a curette to remove all devitalized tissue from the abscess cavity. The cavity was noted to track to the level of the fascia but the fascia appears to be intact. The cavity was irrigated 1 more time and hemostasis was achieved. I then placed my attention to the supraumbilical abscess cavity the packing was removed and the cavity was irrigated 1 more time hemostasis was achieved. At this point I packed the supraumbilical abscess cavity with half-inch iodoform packing and the infraumbilical abscess cavity with Betadine soaked Kerlix. A sterile dressing was applied. At the end of the procedure all counts were correct the patient tolerated well the procedure was transferred to the PACU in stable condition
[2025-06-12] MEDS: pantoprazole 40 mg SDV IVP (12:09)
[2025-06-13] VITALS: BP 158/82; PULSE 69; RESP 18; TEMP 36.6; O2SAT 93
[2025-06-13] MEDS: piperacillin-tazobactam 3.375 GM in sodium chloride 0.9% (plus) 50 ML IV ×3 (01:59→17:09)
[2025-06-13 04:00] VITALS: BP 150/77; PULSE 64; RESP 19; TEMP 36.7; O2SAT 95
[2025-06-13 04:00] LABS: Hematocrit 40.3 % (36-47); Hemoglobin 12.30 g/dL (11.27-16.99); Mean Corpuscular HGB Conc 30.5 g/dL (30-55); Mean Corpuscular Hemoglobin 26.6 pg (27-33); Mean Corpuscular Volume 87.2 fl (85-98); Nucleated Red Blood Cells % 0 %; Platelet Count 338 10^3/cmm (157-399); Red Blood Count 4.62 10^6/uL (3.85-5.65); White Blood Count 11.97 10^3/uL (3.29-11.43)
[2025-06-13 04:18] LABS: Anion Gap 12.6 (5-19); Blood Urea Nitrogen 15 mg/dL (6-20); Calcium 9.4 mg/dL (8.5-10.5); Carbon Dioxide 28 mmol/L (22-29); Chloride 104 mmol/L (98-107); Glucose 145 mg/dL (65-115); Magnesium 2.0 mg/dL (1.7-2.3); Osmolality Calculated 293 mOsm/kg (285-295); Potassium 4.6 mmol/L (3.5-5.1); Sodium 140 mmol/L (136-145)
[2025-06-13 07:51] VITALS: BP 160/78; PULSE 64; RESP 18; TEMP 36.3; O2SAT 97
--- NOTE | 2025-06-13 10:14 | P.PN_ITS ---
Subjective 2 Subjective: Patient showing very good progression no significant pain no significant discha Vitals/I&O/Wt Last Vital Signs Temp 97.4 F L 06/13/25 07:51 Pulse 64 06/13/25 07:51 Resp 18 06/13/25 07:51 BP 160/78 06/13/25 07:51 Pulse Ox 97 06/13/25 07:51 O2 Del Method Room Air 06/13/25 04:00 O2 Flow Rate 2 06/12/25 10:30 06/12/25 06/13/25 06/13/25 22:59 06:59 14:59 Intake Total 1810 / 2963.333 620 / 3583.333 514.167 / 514.167 Balance 1810 / 2558.333 620 / 3178.333 514.167 / 514.167 Weight last 48 hrs Weight 250 lb Weight 374 lb 9.6 oz Weight 360 lb Physical Exam 2 GI: OTHER: Abdominal exam is benign, once packing was removed, very minimal residual purulence in the lower wound after wound appears completely healthy. The wounds were repacked. Data 06/13/25 03:44 06/13/25 03:44 Micro: Microbiology 06/12/25 08:24 Anaerobic Culture - Preliminary Abdomen 06/12/25 08:20 Anaerobic Culture - Preliminary Abdomen 06/12/25 08:20 Gram Stain - Final Abdomen 06/12/25 08:24 Gram Stain - Final Abdomen A&P Assessment and plan 1. Morbid obesity: 2. Abdominal abscess: 3. Superficial incisional surgical site infection: Plan: Patient showing excellent progression, white count has improved, vital signs are stable no significant abdominal pain no discharge from the wounds wound care has been given. Will await for results of the cultures for sensitivity before transition to p.o. medication. Other than that patient should be able to transition home in the next 24 to 48 hours. PDMP PDMP Reviewed: Not Reviewed Attestations 2 Medical Necessity Statement*: Patient will require additional 24-4 8 hours of IV antibiotics for superficial surgical site infection, will require case management for outpatient wound care planning.Pending results of wound cultures Coding Level of Care Code Acute Code for Chg Fwd Diagnoses Morbid obesity E66.01 Abdominal abscess Superficial incisional surgical site infection T81.41XA
[2025-06-13] MEDS: pantoprazole 40 mg SDV IVP (10:57)
[2025-06-13 12:03] VITALS: BP 164/77; PULSE 59; RESP 18; TEMP 36.5; O2SAT 95
--- NOTE | 2025-06-13 14:57 | PHA.VACGOAL ---
Vancomycin Goal - Goal Vancomycin Goal:: 10-15 mg/L Vancomycin Indication:: SSTI - Therapy Current therapy:: Pip/Tazo Day of therpy:: Day []of [] . Actual body weight (kg): 113.398 kg - Data Labs: WBC 11.97 10^3/uL (3.29-11.43) H 06/13/25 03:44 RBC 4.62 10^6/uL (3.85-5.65) 06/13/25 03:44 Hgb 12.30 g/dL (11.27-16.99) 06/13/25 03:44 Hct 40.3 % (36-47) 06/13/25 03:44 MCV 87.2 fl (85-98) 06/13/25 03:44 MCH 26.6 pg (27-33) L 06/13/25 03:44 MCHC 30.5 g/dL (30-55) 06/13/25 03:44 RDW 14.6 % (12.1-15.1) 06/13/25 03:44 Sodium 140 mmol/L (136-145) 06/13/25 03:44 Potassium 4.6 mmol/L (3.5-5.1) 06/13/25 03:44 Chloride 104 mmol/L (98-107) 06/13/25 03:44 Carbon Dioxide 28 mmol/L (22-29) 06/13/25 03:44 Anion Gap 12.6 (5-19) 06/13/25 03:44 BUN 15 mg/dL (6-20) 06/13/25 03:44 Creatinine 0.7 mg/dL (0.5-0.9) 06/13/25 03:44 GFR Calculation 87.5 mL/min (90-130) L 06/13/25 03:44 Treatment plan:: new consult Regimen:: New start vancomycin for abdominal abscess. No prior vancomycin history found. Started on maintenance dose of 2000 mg q12h. Vancomycin trough came back above goal trough range of 10-15 mg/L @22.1 mg/L. Dose adjusted to 1500 mg q12h. Laboratory Tests 06/13/25 14:20 Vancomycin Trough 22.1 H
[2025-06-13 15:58] VITALS: BP 171/79; PULSE 70; RESP 18; TEMP 36.4; O2SAT 96
[2025-06-13 19:43] VITALS: BP 166/70; PULSE 62; RESP 18; TEMP 36.8; O2SAT 95
[2025-06-14] VITALS (8 sets, daily range): BP systolic 165–211; BP diastolic 71–107; PULSE 53–80; RESP 18–19; TEMP 36.2–36.8; O2SAT 94–96; BMI 63.5
[2025-06-14] MEDS: piperacillin-tazobactam 3.375 GM in sodium chloride 0.9% (plus) 50 ML IV ×3 (02:43→17:06)
[2025-06-14 04:25] LABS: Hematocrit 38.1 % (36-47); Hemoglobin 11.50 g/dL (11.27-16.99); Mean Corpuscular HGB Conc 30.2 g/dL (30-55); Mean Corpuscular Hemoglobin 26.4 pg (27-33); Mean Corpuscular Volume 87.4 fl (85-98); Nucleated Red Blood Cells % 0 %; Platelet Count 331 10^3/cmm (157-399); Red Blood Count 4.36 10^6/uL (3.85-5.65); White Blood Count 10.53 10^3/uL (3.29-11.43)
[2025-06-14 04:38] LABS: Anion Gap 12.1 (5-19); Blood Urea Nitrogen 22 mg/dL (6-20); Calcium 9.0 mg/dL (8.5-10.5); Carbon Dioxide 29 mmol/L (22-29); Chloride 104 mmol/L (98-107); Glucose 105 mg/dL (65-115); Magnesium 1.9 mg/dL (1.7-2.3); Osmolality Calculated 296 mOsm/kg (285-295); Potassium 4.1 mmol/L (3.5-5.1); Sodium 141 mmol/L (136-145)
--- NOTE | 2025-06-14 06:55 | P.PN_ITS ---
Subjective 2 Subjective: Excellent progression, no abdominal pain, otherwise doing okay Vitals/I&O/Wt Last Vital Signs Temp 97.5 F L 06/14/25 04:00 Pulse 53 L 06/14/25 04:00 Resp 18 06/14/25 04:00 BP 183/71 06/14/25 04:00 Pulse Ox 95 06/14/25 04:00 O2 Del Method Room Air 06/14/25 04:00 O2 Flow Rate 2 06/12/25 10:30 06/13/25 06/13/25 06/14/25 14:59 22:59 06:59 Intake Total 754.167 / 754.167 340 / 1094.167 350 / 1444.167 Output Total 150 / 150 650 / 800 Balance 754.167 / 754.167 190 / 944.167 -300 / 644.167 Weight last 48 hrs Weight 370 lb Physical Exam 2 GI: OTHER: Surgical incisions packed with packing, this was removed and replaced. No evidence of infection. No purulent discharge. Data 06/14/25 04:05 06/14/25 04:05 Micro: Microbiology 06/12/25 08:20 Gram Stain - Final Abdomen Abscess Culture - Preliminary Coag positive Staphylococcus Gram Negative Rods 06/12/25 08:24 Gram Stain - Final Abdomen Abscess Culture - Preliminary Gram Negative Rods 06/12/25 08:24 Anaerobic Culture - Preliminary Abdomen 06/12/25 08:20 Anaerobic Culture - Preliminary Abdomen A&P Assessment and plan 1. Morbid obesity: 2. Abdominal abscess: Plan: Excellent progression, normal white count, no abdominal pain, we will continue in-house wound care until results for cultures are available and patient can transition to the outpatient setting. PDMP PDMP Reviewed: Not Reviewed Attestations 2 Medical Necessity Statement*: Per medical Coding Level of Care Code Acute Code for Chg Fwd Diagnoses Morbid obesity E66.01 Abdominal abscess
[2025-06-14] MEDS: pantoprazole 40 mg SDV IVP (08:53)
[2025-06-15] VITALS: BP 178/76; PULSE 63; RESP 18; TEMP 36.7; O2SAT 95
[2025-06-15] MEDS: piperacillin-tazobactam 3.375 GM in sodium chloride 0.9% (plus) 50 ML IV (01:40)
[2025-06-15 04:00] VITALS: BP 134/74; PULSE 73; RESP 17; TEMP 36.6; O2SAT 95
[2025-06-15 05:01] LABS: Hematocrit 40.5 % (36-47); Hemoglobin 12.20 g/dL (11.27-16.99); Mean Corpuscular HGB Conc 30.1 g/dL (30-55); Mean Corpuscular Hemoglobin 26.8 pg (27-33); Mean Corpuscular Volume 89.0 fl (85-98); Nucleated Red Blood Cells % 0 %; Platelet Count 308 10^3/cmm (157-399); Red Blood Count 4.55 10^6/uL (3.85-5.65); White Blood Count 11.65 10^3/uL (3.29-11.43)
[2025-06-15 05:23] LABS: Blood Urea Nitrogen 20 mg/dL (6-20); Calcium 9.2 mg/dL (8.5-10.5); Carbon Dioxide 24 mmol/L (22-29); Chloride 108 mmol/L (98-107); Glucose 101 mg/dL (65-115); Magnesium 1.9 mg/dL (1.7-2.3); Osmolality Calculated 301 mOsm/kg (285-295); Sodium 144 mmol/L (136-145)
[2025-06-15 05:28] LABS: Anion Gap 16.6 (5-19); Potassium 4.6 mmol/L (3.5-5.1)
--- NOTE | 2025-06-15 07:36 | P.DS_ITS ---
Discharge Providers Date of Admission: 06/12/25 02:46 Date of Discharge: June 15, 2025 Attending Provider at Admission: Ashok Pizarro MD Attending Provider at Discharge: Ashok Pizarro MD Primary Care Provider: ANA MARIA Spear Diagnoses at Discharge Discharge Diagnosis 1. Morbid obesity: 2. Abdominal abscess: Reason for Visit Reason for Visit: surg incision oozing large amt fluid Hospital Course Hospital Course 54-year-old female who presents to the hospital with a subcutaneous abscess in the area of previous surgical incision, patient underwent laparotomy and repair of incarcerated hernia about a month ago, in the postoperative period she developed a seroma that has been constantly draining but about 4 to 5 days before the patient presented to the hospital she started draining purulent fluid. CT scan in the ER showed 2 different fluid collections 1 supraumbilical 1 infraumbilical, she was taken to the OR to collections with drain. She has been doing well in the postoperative period. Wound cultures were positive for E. coli, Pseudomonas and Staphylococcus. Culture sensitivities showed all of them are sensitive to quinolones, patient will transition to p.o. levofloxacin for 7 days. She will follow-up as outpatient with Dr. Pemberton. She has been teaching how to continue packing of the dressings. Physical Exam GI: OTHER: Benign abdominal examination surgical incisions look well the packing was replaced this morning there is no evidence of significant purulence there is some serosanguineous discharge. Discharge Data Studies Completed and Pending Completed Studies During Hospitalization Category Date Time Status CT abdomen pelvis w con* [id number] Stat Cat Scan 06/12/25 01:03 Completed Pending at discharge Category Date Time Status Anaerobic Culture Routine Lab 06/12/25 08:20 Results Anaerobic Culture Routine Lab 06/12/25 08:24 Results Blood Culture Stat Lab 06/12/25 00:39 Results Radiology Impressions Abdomen/Pelvis CT 06/12/25 01:03 IMPRESSION: 1. Anterior midline subcutaneous abscess, with collections measuring 7.9 x 5.6 cm and 3.2 x 3.6 cm. 2. Cholecystectomy. 3. Diverticulosis, without acute diverticulitis. Partial small bowel resection. No bowel obstruction. No free air. Laboratory Results WBC 11.65 10^3/uL (3.29-11.43) H 06/15/25 04:53 RBC 4.55 10^6/uL (3.85-5.65) 06/15/25 04:53 Hgb 12.20 g/dL (11.27-16.99) 06/15/25 04:53 Hct 40.5 % (36-47) 06/15/25 04:53 MCV 89.0 fl (85-98) 06/15/25 04:53 MCH 26.8 pg (27-33) L 06/15/25 04:53 MCHC 30.1 g/dL (30-55) 06/15/25 04:53 RDW 15.0 % (12.1-15.1) 06/15/25 04:53 Plt Count 308 10^3/cmm (157-399) 06/15/25 04:53 MPV 9.4 fL (7.4-10.4) 06/15/25 04:53 Neut % (Auto) 59.6 % 06/15/25 04:53 Lymph % (Auto) 25.6 % 06/15/25 04:53 [place] % (Auto) 7.7 % 06/15/25 04:53 Eos % (Auto) 6.0 % 06/15/25 04:53 Baso % (Auto) 0.4 % 06/15/25 04:53 Neut # (Auto) 6.94 10^3/uL (1.8-7.7) 06/15/25 04:53 Lymph # (Auto) 3.0 10^3/uL (0.8-4.8) 06/15/25 04:53 [place] # (Auto) 0.9 10^3/uL (0.2-0.9) 06/15/25 04:53 Eos # (Auto) 0.7 10^3/uL (0.0-0.8) 06/15/25 04:53 Baso # (Auto) 0.1 10^3/uL (0.0-0.1) 06/15/25 04:53 Nucleated RBC % (auto) 0 % 06/15/25 04:53 Nucleated RBCs # 0.0 /100WBC 06/15/25 04:53 Sodium 144 mmol/L (136-145) 06/15/25 04:53 Potassium 4.6 mmol/L (3.5-5.1) 06/15/25 04:53 Chloride 108 mmol/L (98-107) H 06/15/25 04:53 Carbon Dioxide 24 mmol/L (22-29) 06/15/25 04:53 Anion Gap 16.6 (5-19) 06/15/25 04:53 BUN 20 mg/dL (6-20) 06/15/25 04:53 Creatinine 0.6 mg/dL (0.5-0.9) 06/15/25 04:53 GFR Calculation 104.6 mL/min (90-130) 06/15/25 04:53 Glucose 101 mg/dL (65-115) 06/15/25 04:53 POC Glucose 134 mg/dL (70-110) H 06/12/25 10:30 Calculated Osmolality 301 mOsm/kg (285-295) H 06/15/25 04:53 Lactic Acid 1.1 mmol/L (0.5-2.2) 06/12/25 00:39 Calcium 9.2 mg/dL (8.5-10.5) 06/15/25 04:53 Phosphorus 4.2 mg/dL (2.5-4.5) 06/15/25 04:53 Magnesium 1.9 mg/dL (1.7-2.3) 06/15/25 04:53 Total Bilirubin 0.3 mg/dL (0.15-1.2) 06/12/25 00:39 AST 15 U/L (0-32) 06/12/25 00:39 ALT 15 U/L (0-33) 06/12/25 00:39 Alkaline Phosphatase 100 U/L (35-105) 06/12/25 00:39 C-Reactive Protein 15.2 mg/L (0.0-4.9) H 06/12/25 00:39 Total Protein 7.8 g/dL (6.6-8.7) 06/12/25 00:39 Albumin 4.2 g/dL (3.5-5.2) 06/12/25 00:39 Globulin 3.6 g/dL (1.3-4.6) 06/12/25 00:39 Urine Color Yellow (Yellow) 06/12/25 02:09 Urine Appearance Cloudy (CLEAR) A 06/12/25 02:09 Urine pH 6.0 (5-7) 06/12/25 02:09 Ur Specific [place] 1.036 (1.005-1.030) H 06/12/25 02:09 Urine Protein Trace (Negative) A 06/12/25 02:09 Urine Glucose (UA) Negative (Normal) 06/12/25 02:09 Urine Ketones Trace (Negative) 06/12/25 02:09 Urine Blood Negative (Negative) 06/12/25 02:09 Urine Nitrate Positive (Negative) A 06/12/25 02:09 Urine Bilirubin Negative (Negative) 06/12/25 02:09 Urine Urobilinogen 1.0 mg/dL (Negative) 06/12/25 02:09 Ur Leukocyte Esterase 2+ (Negative) A 06/12/25 02:09 Urine RBC 6-10 /hpf (0-2) 06/12/25 02:09 Urine WBC 11-20 /hpf (0-5) H 06/12/25 02:09 Ur Squamous Epith Cells 11-20 /hpf (0-5) H 06/12/25 02:09 Amorphous Sediment Not Reportable 06/12/25 02:09 Urine Bacteria 4+ /hpf (NONE) H 06/12/25 02:09 Hyaline Casts 1.21 /lpf 06/12/25 02:09 Vancomycin Trough 22.1 ug/mL (10-15) H 06/13/25 14:20 Vitals Last Vital Signs Temp 97.9 F 06/15/25 04:00 Pulse 73 06/15/25 04:00 Resp 17 06/15/25 04:00 BP 134/74 06/15/25 04:00 Pulse Ox 95 06/15/25 04:00 O2 Del Method Room Air 06/15/25 04:00 O2 Flow Rate 95 06/14/25 08:00 Discharge Plan Discharge Patient Disposition: Home Condition: Stable Prescriptions: New levofloxacin 750 mg tablet 750 mg PO DAILY 10 Days Qty: 10 0RF Continued sertraline 100 mg tablet 100 mg PO DAILY levothyroxine 125 mcg tablet 125 mcg PO QAM polyethylene glycol 3350 [Miralax] 17 gram powder in packet 17 g PO DAILY 30 Days Qty: 30 0RF cholecalciferol (vitamin D3) [Vitamin D3] 25 mcg (1,000 unit) Capsule 25 mcg PO DAILY cyanocobalamin (vitamin B-12) 1,000 mcg Capsule 1,000 mcg PO DAILY magnesium oxide 400 mg magnesium Tablet 400 mg PO DAILY Discharge Order = DC NOW: Discharge Order (Routine); Ordered 06/15/25 Ordered By: Ashok Pizarro Referrals: Heather Yip FNP [Primary Care Provider, Nurse Practitioner] Duran Pemberton MD [Physician, General Surgery] Referral Note: 06/21 Patient Instructions: Acute Wound Care (DC), Opioid Safety, Post Anesthesia Care, Patient Portal & Mayi Instructions Discharge Attestations Time Spent in Discharge Care*: less than 30 min Quality Metrics Clinical Quality Measures [ No reported AMI, CVA or VTE this stay] Coding Level of Care Code Acute Code for Chg Fwd Diagnoses Morbid obesity E66.01 Abdominal abscess
[2025-06-15 07:46] VITALS: BP 171/94; PULSE 69; RESP 18; TEMP 36.9; O2SAT 95
== END 2025-06-15 10:00 | disposition home or self-care (01) | DRG 721 ==
LOC: ER 06-12 01:46 → MEDSURG 06-12 02:46
PROVIDERS: Admitting Provider Surgery; Emergency Provider Physician Assistant; PCP Registered Nurse; Visit Provider Surgery
PROC: 0HD7XZZ Extraction of Abdomen Skin, External Approach (ICD-10-PCS; principal; 2025-06-12 08:00)
DX: T81.41XA Infection following a procedure, superficial incisional surgical site, initial encounter (principal); L02.211 Cutaneous abscess of abdominal wall; B96.20 Unspecified Escherichia coli [E. coli] as the cause of diseases classified elsewhere; B96.5 Pseudomonas (aeruginosa) (mallei) (pseudomallei) as the cause of diseases classified elsewhere; B95.8 Unspecified staphylococcus as the cause of diseases classified elsewhere; Y83.8 Other surgical procedures as the cause of abnormal reaction of the patient, or of later complication, without mention of misadventure at the time of the procedure; E66.01 Morbid (severe) obesity due to excess calories; Z68.44 Body mass index [BMI] 60.0-69.9, adult; E03.9 Hypothyroidism, unspecified
CPT/HCPCS: 36415; 36416; 74177; 80048; 80053; 80202; 81001; 82962; 83605; 83735; 84100; 85025; 86140; 87040; 87070; 87075; 87077; 87186; 87205; 96365; 96372; 96375; 99285; J0330; J1100; J1650; J1885; J2250; J2270; J2405; J2470; J2543; J2704; J3010; J3372; J3373; J3490; J7030; J7120; J9999